=== PATIENT | male | born 1965 | race Caucasian/White ===

== ENCOUNTER → 2019-06-07 09:36 | Outpatient (BNVA) | payer BC, SELFPAY | PROVIDERS: Family Provider Nurse Practitioner Family; PCP Nurse Practitioner Family; Visit Provider Podiatrist Foot & Ankle Surgery | DX: B35.1 Tinea unguium (principal) | CPT/HCPCS: 84450; 84460 ==

== ENCOUNTER → 2020-12-12 15:41 | Outpatient (BNVA) | payer BC, SELFPAY | PROVIDERS: Family Provider Nurse Practitioner Family; PCP Family Medicine; Visit Provider Podiatrist Foot & Ankle Surgery | DX: M25.572 Pain in left ankle and joints of left foot (principal) | CPT/HCPCS: 73630 ==

== ENCOUNTER → 2021-01-02 15:27 | Outpatient (BNVA) | payer BC, SELFPAY | PROVIDERS: Family Provider Nurse Practitioner Family; PCP Family Medicine; Visit Provider Podiatrist Foot & Ankle Surgery | DX: M25.572 Pain in left ankle and joints of left foot (principal) | CPT/HCPCS: 73630 ==

== ENCOUNTER 2021-01-02 16:08 | Outpatient (CLI) | payer BC, SELFPAY | END 2021-01-02 16:09 | disposition home or self-care (01) | LOC: SPT 16:09 | PROVIDERS: Family Provider Nurse Practitioner Family; PCP Family Medicine; Visit Provider Podiatrist Foot & Ankle Surgery | DX: Z46.89 Encounter for fitting and adjustment of other specified devices (principal); M76.62 Achilles tendinitis, left leg | CPT/HCPCS: 97760; L4397 ==

== ENCOUNTER 2021-05-16 16:25 | Emergency (ER) | payer OTHER, BC, SELFPAY ==
[2021-05-16 16:37] VITALS: BP 152/93; PULSE 99; RESP 18; TEMP 36.2; O2SAT 98; BMI 36.2
--- NOTE | 2021-05-16 16:59 | CTR_ITS ---
PROCEDURE INFORMATION: Exam: CT Cervical Spine Without Contrast Exam date and time: 05/16/2021 4:59 PM Age: 55 years old Clinical indication: Injury or trauma; Other: Hit in back of head by falling tree; Blunt trauma TECHNIQUE: Imaging protocol: Computed tomography images of the cervical spine without contrast. Radiation optimization: All CT scans at this facility use at least one of these dose optimization techniques: automated exposure control; mA and/or kV adjustment per patient size (includes targeted exams where dose is matched to clinical indication); or iterative reconstruction. COMPARISON: CR Chest 1 [place] [id number] 05/04/2019 9:32 AM RADIATION DOSE METRICS: Total DLP (mGy-cm): 889.3 FINDINGS: Vertebrae: Grade 1 anterolisthesis of C4 relative to C5 of 3 mm is likely chronic and degenerative. C2-C3: No significant disc protrusion. No severe spinal canal stenosis. No significant neural foraminal narrowing. C3-C4: No significant disc protrusion. No severe spinal canal stenosis. No significant neural foraminal narrowing. C4-C5: No significant disc protrusion. No severe spinal canal stenosis. No significant neural foraminal narrowing. C5-C6: No significant disc protrusion. No severe spinal canal stenosis. No significant neural foraminal narrowing. C6-C7: C6-C7 broad-based disc bulge with productive degenerative endplate changes resulting in severe bilateral foraminal narrowing. C7-T1: No significant disc protrusion. No severe spinal canal stenosis. No significant neural foraminal narrowing. Soft tissues: Left thyroid 8.2 mm low-density nodule, nonemergent thyroid ultrasound advised for further evaluation. Lungs: Lung apices are normal. CT/CT cervical spin wo con* [id number] IMPRESSION: 1. Negative for fracture or dislocation. 2. Grade 1 anterolisthesis of C4 relative to C5 of 3 mm is likely chronic and degenerative. 3. C6-C7 broad-based disc bulge with productive degenerative endplate changes resulting in severe bilateral foraminal narrowing. 4. Left thyroid 8.2 mm low-density nodule, nonemergent thyroid ultrasound advised for further evaluation.
--- NOTE | 2021-05-16 17:21 | W.ED.TRAUMA ---
Documented by User: Marlon Kelly DO 05/17/21 07:47 HPI - Trauma General: Chief Complaint: Trauma Stated Complaint: FRACTURED 5TH CERVICAL VER[facility]BRA/[facility] Time Seen by Provider: 05/16/21 16:56 History of Present Illness: HPI narrative: 45-year-old male presents emergency room about 10 days ago he was cutting a tree in all branches line on his head he is a small abrasion on the left side of his forehead he had neck pain ever since that time. [facility] today they did a C-spine film.there was a C4 on 5 partial dislocation he was referred here for further evaluation. He denies any radicular arm pain but does have neck pain. MD complaint: fall Onset (ago): week(s) (2) Loss of Consciousness: no Location: neck Severity: mild Context: fall Associated symptoms: Denies Unable to assess gait, abdominal pain, anorexia, back pain, chest pain, chills, confusion, cough, dental pain, diaphoresis, difficulty breathing, dizziness, epistaxis, fever(s), headache(s), nausea, seizures, short of breath, syncope, visual disturbances, vomiting or weakness Review of Systems Const: Denies: fever(s), chills or diaphoresis ENMT: Denies: dental pain or epistaxis Card: Denies: chest pain or syncope Resp: Denies: dyspnea, productive cough or non-productive cough GI: Denies: abdominal pain, nausea or vomiting : Denies: flank pain, dysuria, urinary frequency or urinary urgency Musc: Denies: back pain Skin/Breast: Denies: rash or pruritus Neuro: Denies: headache(s), dizziness or confusion PFSH ED PFSH: Medical History 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 Bipolar disorder Charcot's joint of foot Depression Erectile dysfunction Hammer toe of left foot Hypertension Surgical History H/O lumpectomy Status post right foot surgery Family History Denies family history of Diabetes CAD (coronary artery disease) Clotting disorder Dementia Hyperlipidemia Psychiatric illness Chronic kidney disease (CKD) Suicide Anesthesia complication Bleeding disorder Family history of premature coronary artery disease Lung disease Cancer Hypertension Stroke Social History Smoking and tobacco status: never smoked Second hand smoke exposure: No Smoking risk assessment/counseling performed?: No Alcohol intake: never Desire information about alcohol rehabilitation?: No Counseling given: No Desire information about substance/drug rehabilitation?: No Counseling given: No Adopted: No Caregiver/support person: No Physical Exam Const: COMMON NORMALS: no acute distress GENERAL APPEARANCE: cooperative and comfortable ORIENTATION/CONSCIOUSNESS: Yes awake, Yes oriented to person, Yes oriented to place and Yes oriented to time HENMT: COMMON NORMALS: normocephalic, atraumatic and hearing grossly normal bilaterally HEAD & SCALP: normocephalic and atraumatic Neck/C-Spine: COMMON NORMALS: no JVD Resp: COMMON NORMALS: normal respiratory effort, No retractions, No use of accessory muscles and clear to auscultation bilaterally AUSCULTATION: clear to auscultation bilaterally Cardio: COMMON NORMALS: no JVD, regular rate, regular rhythm and No murmurs present (Cardio) RATE: regular rate RHYTHM: regular rhythm GI: COMMON NORMALS: Soft to palpation and No hepatosplenomegaly present AUSCULTATION: Yes normoactive bowel sounds PALPATION: Yes Soft to palpation, No Tenderness to palpation present (GI), No Guarding due to palpation present (GI) and Yes No hepatosplenomegaly present Extremity: COMMON NORMALS: normal to inspection, capillary refill normal, no clubbing, cyanosis or edema, no calf tenderness and no pedal edema Neuro: SENSORIUM/ORIENTATION: Yes oriented to person, Yes oriented to place and Yes oriented to time GAIT: No Unable to assess gait Skin: COMMON NORMALS: no rashes or lesions noted GENERAL SKIN EXAM: no rashes or lesions noted Course Vital Signs: Vital signs: Vital Signs Temperature 97.2 F L 05/16/21 16:37 Pulse Rate 99 05/16/21 16:37 Respiratory Rate 18 05/16/21 16:37 Blood Pressure 152/93 05/16/21 16:37 Pulse Oximetry 98 05/16/21 16:37 MDM - Trauma MDM Narrative: Medical decision making narrative: Care turned over to Dr. Kelley at change shift see his notes for final diagnosis and disposition. Discharge Plan Discharge Patient Disposition: Home Clinical Impression: Neck strain Qualifiers: Encounter type: initial encounter Qualified Code(s): S16.1XXA - Strain of muscle, fascia and tendon at neck level, initial encounter Condition: Stable Prescriptions: New methocarbamol 750 mg tablet 750 mg PO Q6H PRN (Reason: spasms) Qty: 20 RF: 0 Naprosyn 500 mg tablet 500 mg PO BID PRN (Reason: pain) Qty: 20 RF: 0 No Action baclofen 20 mg tablet 20 mg PO TID RF: 0 tadalafil [Cialis] 20 mg tablet 20 mg PO ONCE RF: 0 cyclobenzaprine 10 mg tablet 10 mg PO TID RF: 0 lithium carbonate 450 mg tablet extended release 450 mg PO BID RF: 0 diclofenac sodium [Voltaren] 1 % gel 2 gm TOPICAL QID Qty: 100 RF: 0 terbinafine HCl 250 mg tablet 250 mg PO ONCE 30 Days Qty: 30 RF: 2 mupirocin 2 % ointment 1 applic topical BID Qty: 22 RF: 3 amoxicillin-pot clavulanate [Augmentin] 875-125 mg tablet 1 tab PO BID 10 Days Qty: 20 RF: 0 (DME) Custom Foot Orthotics Bilaterally See Rx Instructions .Route .MEDSUPPLY Qty: 1 RF: 0 (DME) Night splint See Rx Instructions .ROUTE .MEDSUPPLY Qty: 1 RF: 0 doxycycline hyclate 100 mg capsule 100 mg PO BID 7 Days Qty: 14 RF: 0 sulfamethoxazole-trimethoprim [Bactrim DS] 800-160 mg tablet 1 tab PO BID 14 Days Qty: 28 RF: 0 fluoxetine 10 mg capsule 10 mg PO BID Qty: 60 RF: 0 lisinopril-hydrochlorothiazide 20-25 mg tablet 1 tab PO BID Qty: 120 RF: 0 Discharge Orders: Discharge ED (Routine); Ordered 05/16/21 Ordered By: Juwan Kelley Referrals: Aniket Maher DO [Physician] - 1-3 days Ana Bustos MD [Primary Care Provider] - Discharge Diet: Advance as tolerated Discharge Activity: Resume usual activity Patient Instructions: Neck Pain (ED) Coding Level of Care Code ED Environmental Field Team Member for Chg Fwd Exam Comprehensive Documented by User: Juwan Kelley MD 05/16/21 19:00 HPI - Trauma General: Chief Complaint: Trauma Stated Complaint: FRACTURED 5TH CERVICAL VERTEBRA[facility] Time Seen by Provider: 05/16/21 16:56 PFSH ED PFSH: Medical History 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 Bipolar disorder Charcot's joint of foot Depression Erectile dysfunction Hammer toe of left foot Hypertension Surgical History H/O lumpectomy Status post right foot surgery Family History Denies family history of Diabetes CAD (coronary artery disease) Clotting disorder Dementia Hyperlipidemia Psychiatric illness Chronic kidney disease (CKD) Suicide Anesthesia complication Bleeding disorder Family history of premature coronary artery disease Lung disease Cancer Hypertension Stroke Social History Smoking and tobacco status: never smoked Second hand smoke exposure: No Smoking risk assessment/counseling performed?: No Alcohol intake: never Desire information about alcohol rehabilitation?: No Counseling given: No Desire information about substance/drug rehabilitation?: No Counseling given: No Adopted: No Caregiver/support person: No Course Vital Signs: Vital signs: Vital Signs Temperature 97.2 F L 05/16/21 16:37 Pulse Rate 99 05/16/21 16:37 Respiratory Rate 18 05/16/21 16:37 Blood Pressure 152/93 05/16/21 16:37 Pulse Oximetry 98 05/16/21 16:37 MDM - Trauma MDM Narrative: Medical decision making narrative: Patient presents here with a neck sprain from a tree fall on him 10 days ago concerned of a possible fracture CT here shows no fracture or dislocation patient stable for discharge did speak to spine surgeon Dr. Madsen will get patient follow-up with him. He is return if worsening he has no radicular symptoms. Imaging Data^: Other CT: Attestation: I personally reviewed and interpreted this imaging study as follows: Radiologist's impression: [id number] [address] [address] Scan Report Signed Patient: Fidel Moura Unit #: [id number] : [id number] Age/Sex: 55 / M ADM Date: 05/16/21 Loc: ER Room/Bed: Attending Dr: Ordering Provider/Ordering MD: Marlon Kelly DO Date of Service: 05/16/21 Procedure(s): CT cervical spin wo con* [id number] Accession Number(s): [id number] Report Number: [id number] PROCEDURE INFORMATION: Exam: CT Cervical Spine Without Contrast Exam date and time: 05/16/2021 4:59 PM Age: 55 years old Clinical indication: Injury or trauma; Other: Hit in back of head by falling tree; Blunt trauma TECHNIQUE: Imaging protocol: Computed tomography images of the cervical spine without contrast. Radiation optimization: All CT scans at this facility use at least one of these dose optimization techniques: automated exposure control; mA and/or kV adjustment per patient size (includes targeted exams where dose is matched to clinical indication); or iterative reconstruction. COMPARISON: CR Chest 1 [place] [id number] 05/04/2019 9:32 AM RADIATION DOSE METRICS: Total DLP (mGy-cm): 889.3 FINDINGS: Vertebrae: Grade 1 anterolisthesis of C4 relative to C5 of 3 mm is likely chronic and degenerative. C2-C3: No significant disc protrusion. No severe spinal canal stenosis. No significant neural foraminal narrowing. C3-C4: No significant disc protrusion. No severe spinal canal stenosis. No significant neural foraminal narrowing. C4-C5: No significant disc protrusion. No severe spinal canal stenosis. No significant neural foraminal narrowing. C5-C6: No significant disc protrusion. No severe spinal canal stenosis. No significant neural foraminal narrowing. C6-C7: C6-C7 broad-based disc bulge with productive degenerative endplate changes resulting in severe bilateral foraminal narrowing. C7-T1: No significant disc protrusion. No severe spinal canal stenosis. No significant neural foraminal narrowing. Soft tissues: Left thyroid 8.2 mm low-density nodule, nonemergent thyroid ultrasound advised for further evaluation. Lungs: Lung apices are normal. CT/CT cervical spin wo con* [id number] IMPRESSION: 1. Negative for fracture or dislocation. 2. Grade 1 anterolisthesis of C4 relative to C5 of 3 mm is likely chronic and degenerative. 3. C6-C7 broad-based disc bulge with productive degenerative endplate changes resulting in severe bilateral foraminal narrowing. 4. Left thyroid 8.2 mm low-density nodule, nonemergent thyroid ultrasound advised for further evaluation. Dictated By: Brodie Willson MD Signed By: Brodie Willson MD Signed Date/Time: 05/16/211812 DD/ 58 Discharge Plan Discharge Patient Disposition: Home Clinical Impression: Neck strain Qualifiers: Encounter type: initial encounter Qualified Code(s): S16.1XXA - Strain of muscle, fascia and tendon at neck level, initial encounter Condition: Stable Prescriptions: New methocarbamol 750 mg tablet 750 mg PO Q6H PRN (Reason: spasms) Qty: 20 RF: 0 Naprosyn 500 mg tablet 500 mg PO BID PRN (Reason: pain) Qty: 20 RF: 0 No Action baclofen 20 mg tablet 20 mg PO TID RF: 0 tadalafil [Cialis] 20 mg tablet 20 mg PO ONCE RF: 0 cyclobenzaprine 10 mg tablet 10 mg PO TID RF: 0 lithium carbonate 450 mg tablet extended release 450 mg PO BID RF: 0 diclofenac sodium [Voltaren] 1 % gel 2 gm TOPICAL QID Qty: 100 RF: 0 terbinafine HCl 250 mg tablet 250 mg PO ONCE 30 Days Qty: 30 RF: 2 mupirocin 2 % ointment 1 applic topical BID Qty: 22 RF: 3 amoxicillin-pot clavulanate [Augmentin] 875-125 mg tablet 1 tab PO BID 10 Days Qty: 20 RF: 0 (DME) Custom Foot Orthotics Bilaterally See Rx Instructions .Route .MEDSUPPLY Qty: 1 RF: 0 (DME) Night splint See Rx Instructions .ROUTE .MEDSUPPLY Qty: 1 RF: 0 doxycycline hyclate 100 mg capsule 100 mg PO BID 7 Days Qty: 14 RF: 0 sulfamethoxazole-trimethoprim [Bactrim DS] 800-160 mg tablet 1 tab PO BID 14 Days Qty: 28 RF: 0 fluoxetine 10 mg capsule 10 mg PO BID Qty: 60 RF: 0 lisinopril-hydrochlorothiazide 20-25 mg tablet 1 tab PO BID Qty: 120 RF: 0 Discharge Orders: Discharge ED (Routine); Ordered 05/16/21 Ordered By: Juwan Kelley Referrals: Aniket Maher DO [Physician] - 1-3 days Ana Bustos MD [Primary Care Provider] - Discharge Diet: Advance as tolerated Discharge Activity: Resume usual activity Patient Instructions: Neck Pain (ED) Coding Level of Care Code ED Environmental Field Team Member for Chg Fwd Exam Comprehensive
--- NOTE | 2021-05-17 09:26 | DCPLANNER ---
environmental sustainability manager had message to schedule a follow up appointment for patient with ortho. environmental sustainability manager called the ortho clinic, spoke with Mariah, gave clinic patients information. environmental sustainability manager was told that patients information would be printed and reviewed. Clinic will call patient with appointment information. Patient has [facility] insurance, family service caseworker will email patients information to August, with [facility], so that the authorization process can be started.
--- NOTE | 2021-05-25 08:11 | DCPLANNER ---
Addendum entered by Ashley Tobias 07/06/21 11:47: Patient had a follow up appointment scheduled for 06.07.21 with ortho - patient did attend appointment. Original Note: Patient has a follow up appointment scheduled for June at 10:[address] Maher at ortho. Clinic will call patient with appointment information.
== END 2021-05-16 19:10 | disposition home or self-care (01) ==
PROVIDERS: Emergency Provider Emergency Medicine; PCP Family Medicine
DX: S16.1XXA Strain of muscle, fascia and tendon at neck level, initial encounter (principal); I10 Essential (primary) hypertension; S00.81XA Abrasion of other part of head, initial encounter; W20.8XXA Other cause of strike by thrown, projected or falling object, initial encounter
CPT/HCPCS: 72125; 99283

== ENCOUNTER → 2021-06-07 10:27 | Outpatient (BNVA) | payer OTHER, BC, SELFPAY | PROVIDERS: PCP Family Medicine; Visit Provider Orthopaedic Surgery | DX: S13.150A Subluxation of C4/C5 cervical vertebrae, initial encounter (principal); X58.XXXA Exposure to other specified factors, initial encounter; M47.892 Other spondylosis, cervical region | CPT/HCPCS: 72040 ==

== ENCOUNTER 2021-06-26 06:46 | Outpatient (CLI) | payer OTHER, SELFPAY ==
--- NOTE | 2021-06-26 06:30 | MR_ITS ---
WS: [id number] MRI CERVICAL SPINE NONCONTRAST TECHNIQUE: Sagittal T1, T2 and STIR imaging. Axial T2, gradient, and fiesta imaging. CLINICAL INFORMATION: S12.9XXA - Fracture of neck, unspecified, initial encounter COMPARISON: CT cervical May 16, 2021 FINDINGS: Straightening of the normal cervical lordosis. Moderate spondylitic changes. Slight anterolisthesis C 4 on C5. Mild to moderate central canal stenosis C2-C5. C2-C3: Disc osteophyte complex with endplate ridging. Mild bilateral bony foraminal narrowing. Mild c entral canal stenosis. C3-C4: Disc osteophyte complex with endplate ridging. Mild facet arthropathy. Moderate central canal stenosis and slight indentation on the cervical cord. Moderate to severe left and mild right bony for aminal narrowing. C4-C5: Grade 1 anterolisthesis C4 on C5. Disc osteophyte complex with endplate ridging. Moderate cent ral canal stenosis. Moderate to severe left and mild right bony foraminal narrowing. Right facet syno vitis with right facet edema. C5-C6: Disc osteophyte complex with endplate ridging. Severe left and no significant right foraminal narrowing. Mild central canal stenosis. Moderate facet arthropathy. C6-C7: Disc osteophyte complex with endplate ridging. Mild central canal stenosis. Moderate bilateral bony foraminal narrowing. C7-T1: Disc osteophyte complex with endplate ridging. Mild to moderate left and no significant right foraminal narrowing. Mild to moderate facet arthropathy. Visualized brain stem structures: Normal. Prevertebral soft tissues: Normal. MR/MR cervical spin wo con* [id number] IMPRESSION: 1. Straightening of the normal cervical lordosis. Mild to moderate central can al stenosis C2-C5. 2. Central canal stenosis due to disc osteophyte complexes worse at C3-C4 and C4-C5. Moderate central canal stenosis C3-C4 and C4-5. 3. Multilevel moderate to severe bony foraminal narrowing worse at left C3-C4, left C4-C5, left C5-C6 and moderate bilateral C6-C7. 4. Asymmetric right facet arthropathy C4-5 with right facet effusion consisten t with synovitis.
== END 2021-06-26 06:47 | disposition home or self-care (01) ==
LOC: RAD 06:48
PROVIDERS: PCP Family Medicine; Visit Provider Orthopaedic Surgery
DX: S12.9XXA Fracture of neck, unspecified, initial encounter (principal); X58.XXXA Exposure to other specified factors, initial encounter; M48.02 Spinal stenosis, cervical region; M25.78 Osteophyte, vertebrae; M47.812 Spondylosis without myelopathy or radiculopathy, cervical region
CPT/HCPCS: 72141

== ENCOUNTER 2021-07-27 11:12 | Outpatient (CLI) | payer OTHER, SELFPAY ==
--- NOTE | 2021-07-27 11:19 | US_ITS ---
WS: [id number] THYROID ULTRASOUND HISTORY: NODULE ON THYROID COMPARISON: None available. Right lobe: 2.9 cm x 2.8 cm x 5.3 cm (w x ap x l). Volume: 22.2 cm3. Mildly enlarged gland. There are several small hypoechoic nodules scattered throughout the gland. The se are all less than a centimeter. The largest nodule is in the mid anterior gland measuring 6 x 6 x 5 mm. No increased vascularity. The remaining nodules are very small and some are cystic. Left lobe: 2.7 cm x 2.3 cm x 5.6 cm (w x ap x l). Volume: 18.5 cm3. Normal size and echotexture. No significant or dominant nodules are present. Isthmus: 0.3 cm. US/US thyroid [id number] IMPRESSION: 1. Several small subcentimeter nodules in the RIGHT thyroid. No concerning fea tures at this time for which biopsy should be recommended. Recommend annual ult rasound thyroid evaluation for increasing size or concerning features. 2. Mild thyromegaly.
== END 2021-07-27 11:13 | disposition home or self-care (01) ==
LOC: RAD 11:14
PROVIDERS: PCP Family Medicine; Visit Provider Nurse Practitioner
DX: E04.1 Nontoxic single thyroid nodule (principal)
CPT/HCPCS: 76536

== ENCOUNTER 2021-08-17 08:16 | Outpatient (CLI) | payer OTHER, SELFPAY ==
--- NOTE | 2021-08-17 08:00 | MR_ITS ---
WS: [id number] MRI LEFT KNEE NONCONTRAST TECHNIQUE: Axial PD, coronal PD fat sat, coronal PD, sagittal PD, and sagittal PD fat-sat images obta ined. CLINICAL INFORMATION: M25.462 - Effusion, left knee COMPARISON: None. FINDINGS: Distal quadriceps and patella tendons are intact. Prepatellar soft tissue edema. Hypertrophic patella . Normal ACL and PCL. Moderate suprapatellar effusion. Chronic thinning of the medial and lateral men iscus. Lateral meniscus is intact. Moderate degenerative narrowing medial joint compartment. Complex tear involving the posterior horn medial meniscus extending to the articular surface. Blunting of the posterior horn medial meniscus. Mild peripheral extrusion of the medial meniscus. Bucket-handle type tear with displaced meniscal fragment along the intercondylar notch. Advanced chondromalacia patella. Mild subchondral edema. Normal medial and lateral patellar retinacul um. Tiny popliteal cyst measuring 0.7x3.2 cm AP by craniocaudal. Small amount of fluid and edema deep to the MCL compatible with grade 1-2 injury. Normal lateral collateral ligament. MR/MR knee LT wo con* [id number] IMPRESSION: 1. Moderate suprapatellar effusion. 2. ACL and PCL are intact. 3. Complex tear posterior horn medial meniscus with blunting of the posterior horn. Small displaced fragment along the intercondylar notch compatible with bu cket-handle type tear. Mild peripheral extrusion of the medial meniscus. 4. Grade 1-2 injury of the MCL. 5. Advanced chondromalacia patella with subchondral edema. 6. Small amount of subchondral edema in the medial femoral condyle and tibial plateau. 7. Small popliteal cyst Outbridge grading: grade III: partial-thickness cartilage loss with focal ulcer ation
== END 2021-08-17 08:17 | disposition home or self-care (01) ==
PROVIDERS: PCP Family Medicine; Visit Provider Orthopaedic Surgery
DX: M25.462 Effusion, left knee (principal); S83.232A Complex tear of medial meniscus, current injury, left knee, initial encounter; M22.42 Chondromalacia patellae, left knee; R60.0 Localized edema; M71.22 Synovial cyst of popliteal space [Baker], left knee; X58.XXXA Exposure to other specified factors, initial encounter
CPT/HCPCS: 73721

== ENCOUNTER → 2021-10-23 13:35 | Outpatient (BNVA) | payer OTHER, SELFPAY | PROVIDERS: PCP Family Medicine; Visit Provider Physician Assistant | DX: M47.12 Other spondylosis with myelopathy, cervical region (principal) | CPT/HCPCS: 99213 ==

== ENCOUNTER 2021-10-23 14:54 | Outpatient (CLI) | payer OTHER, SELFPAY | END 2021-10-23 14:55 | disposition home or self-care (01) | LOC: SPT 14:55 | PROVIDERS: PCP Family Medicine; Visit Provider Physician Assistant | DX: Z46.89 Encounter for fitting and adjustment of other specified devices (principal); M47.12 Other spondylosis with myelopathy, cervical region | CPT/HCPCS: 97760; 99214; L0174 ==

== ENCOUNTER 2022-01-02 13:26 | Inpatient (IN) | payer OTHER, SELFPAY ==
[2021-12-28 08:44] VITALS: BMI 34.9
[2021-12-28 09:25] LABS: Anion Gap 11.2 (5-19); Blood Urea Nitrogen 14 mg/dL (6-20); Calcium 9.2 mg/dL (8.5-10.5); Carbon Dioxide 25 mmol/L (22-29); Chloride 108 mmol/L (98-107); Creatinine Clr Calc Pharmacy 151.5487; Glomerular Filtration Rate 100.7 mL/min (90-130); Glucose 111 mg/dL (65-115); Osmolality Calculated 291 mOsm/kg (285-295); Potassium 4.2 mmol/L (3.5-5.1); Sodium 140 mmol/L (136-145)
--- NOTE | 2021-12-28 13:43 | ANES.PREANE2 ---
Pre-Anesthetic Assessment Height/Weight: Height 1.91 m Weight 127.006 kg Preop Diagnosis: Cervical spondylosis w/ myelopathy Operation Date: 01/02/22 07:00 Proposed Procedures p Anterior Cervical Discectomy & Fusion C4-5 C5-6 [id number](Not Applicable) - Aniket Maher DO s Cervical Posterior Fusion C2-T2 [id number]/M47.12(Not Applicable) - Aniket Maher DO s Cervical Decompression(Not Applicable) - Aniket Maher DO Familial anesthetic complications: none Was Beta Faustina taken within 24 hours: N/A Was Clonidine taken within 24 hours: N/A Social No alcohol and No tobacco Exam alert, oriented x 3, clear to auscultation bilaterally and regular rate & rhythm Airway Submandibular: within normal limits Cervical ROM: Other (Limited extension ) Mallampati: Class II Dentition: chipped Comments: Comments: Missing teeth Pulmonary Sleep Apnea (Untreated ) CV/HEM Hypertension None reported Hepatic None reported GI None reported Metabolic Diabetes Mellitus [facility] [place] [facility] None reported Charcot's joint Neuropsych Bipolar and Neuropathy (Peripheral neuropathy ) Dizziness and nausea with neck extension Anesthetic Plan ASA status: 2 Anesthesia: Anesthesia Evaluation and General Other: We discussed risk and benefits of general anesthesia including PONV, sore throat (sometimes severe), corneal abrasion, positioning and peripheral nerve injuries, life threatening allergic reaction, post operative ICU admission requiring prolonged intubation, aspiration, stroke, heart attack, , and rare incidences of recall. Patient consents to proceed with general anesthesia. Plan GETA, 2 PIV, possible arterial line Risk of > 500 ml blood loss (7ml/kg in children): No Medications/Allergies Home Medications Medication Instructions Recorded Confirmed Last Taken Type baclofen 20 mg tablet 20 mg PO TID 06/09/19 12/28/21 Unknown History cyclobenzaprine 10 mg tablet 10 mg PO TID 06/09/19 12/28/21 Unknown History diclofenac sodium 1 % topical gel 2 gm topical QID #100 grams 06/09/19 12/28/21 Unknown Rx (Voltaren) lithium carbonate 450 mg 450 mg PO BID 06/09/19 12/28/21 Unknown History tablet,extended release fluoxetine 10 mg capsule 10 mg PO BID #60 caps 09/13/19 12/28/21 Unknown Rx lisinopril 20 1 tab PO BID #120 tabs 09/13/19 12/28/21 Unknown Rx mg-hydrochlorothiazide 25 mg tablet Custom Foot Orthotics Bilaterally #1 ea 12/12/20 10/23/21 Unknown Rx Night splint #1 ea 01/02/21 10/23/21 Unknown Rx naproxen 500 mg tablet (Naprosyn) 500 mg PO BID PRN pain #20 tabs 05/16/21 12/28/21 Unknown Rx [place] J collar #1 ea 10/23/21 10/23/21 Unknown Rx Allergies Allergy/AdvReac Type Severity Reaction Status Date / Time No Known Allergies Allergy Verified 10/23/21 13:42 [facility] Anesthesia Medical History 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 Bipolar disorder Charcot's joint of foot Depression Erectile dysfunction Hammer toe of left foot Hypertension Surgical History H/O lumpectomy Status post right foot surgery Family History Denies family history of Diabetes CAD (coronary artery disease) Clotting disorder Dementia Hyperlipidemia Psychiatric illness Chronic kidney disease (CKD) Suicide Anesthesia complication Bleeding disorder Family history of premature coronary artery disease Lung disease Cancer Hypertension Stroke Social History Smoking and tobacco status: former smoker (40+ years ) Second hand smoke exposure: No Smoking risk assessment/counseling performed?: No Alcohol intake: never Desire information about alcohol rehabilitation?: No Counseling given: No Desire information about substance/drug rehabilitation?: No Counseling given: No Adopted: No Caregiver/support person: No Data Anesthesia : 12/28/21 08:57 BMP 12/28/21 08:57 Sodium 140 Potassium 4.2 Chloride 108 H Carbon Dioxide 25 BUN 14 Creatinine 0.8 Glucose 111 Calcium 9.2 Cardiac Studies: No Data to Display
[2022-01-02] VITALS (95 sets, daily range): BP systolic 121–188; BP diastolic 78–142; PULSE 70–121; RESP 12–34; TEMP 36.2–37; O2SAT 93–100; BMI 34.9
--- NOTE | 2022-01-02 | SCC_ITS ---
Procedure done: 1. Anterior diskectomy C4/5 2. Anterior discectomy C5/6 3. Insertion of cage C4/5 4. Insertion of Cage C5/6 5. Instrumentation with anterior plate from C4-6 6. Use of allograft 7. C2-T2 posterior spine fusion 8. C2-T2 poserior spine instrumentation 9. C2/3 laminectomy with partial facetectomies 10. C3/4 laminectomy with partial facetectomies 11. C4/5 laminectomy with partial facetectomies 12. C5/6 laminectomy with partial facetectomies 13. use of autograft from same incision 69.2 seconds of fluoroscopic guidance, for a cumulative dose of 18.62 mGy, was provided to Dr. Maher by the radiology department. C-arm images of the cervical spine were saved for the patient's permanent record. [facility]
--- NOTE | 2022-01-02 | XR_ITS ---
WS: [id number] Cervical spine, C-arm fluoroscopy views, 01/02/2022 Clinical Data: acdf, posterior fusion Comparison: None. Findings: Dr. Maher performed an anterior cervical disc fusion C4-C6 with disc cages at C4-C5 and C5- C6. Any performed a posterior cervical thoracic fusion from C2 to T2 with pedicle screws and connecti ng rods. XR/XR cervical spine 3V* [id number] Impression: Anterior and posterior cervical fusion.
--- NOTE | 2022-01-02 06:19 | P.ANESUD_ITS ---
Pre-Anesthetic Update Pre-Anesthetic Assessment: Date of Surgery/Procedure: 01/02/22 Preop Emily gnosis: Cervical spondylosis with myelopathy, anterior listhesis C4-5 Proposed Procedure: Operation Date: 01/02/22 07:00 Proposed Procedures p Anterior Cervical Discectomy & Fusion C4-5 C5-6 [id number](Not Applicable) - Aniket Maher, DO s Cervical Posterior Fusion C2-T2 [id number]/M47.12(Not Applicable) - Aniket Maher, DO s Cervical Decompression(Not Applicable) - Aniket Maher, DO Any changes to Pre-Anesthetic Assessment?: No Last Intake: 01/01/22 Exam: Pre-Anes Outpt Exam: alert, oriented x 3, clear to auscultation bilaterally and regular rate & rhythm Cardiac Studies: No Data to Display
[2022-01-02] MEDS: sodium chloride 0.9% 1,000 ML 30 ML IV (06:50)
[2022-01-02 06:55] LABS: Basophils # 0.1 10^3/uL (0.0-0.1); Eosinophils # 0.3 10^3/uL (0.0-0.8); Eosinophils % 3.2 %; Hematocrit 37.9 % (42.0-52.0); Hemoglobin 12.3 g/dL (11.7-16.6); Lymphocytes % 24.4 %; Mean Corpuscular HGB Conc 32.5 g/dL (30.0-36.0); Mean Corpuscular Hemoglobin 29.5 pg (28.0-34.0); Mean Corpuscular Volume 90.9 fl (80-94); Mean Platelet Volume 10.4 fL (7.4-10.4); Monocytes # 0.6 10^3/uL (0.2-0.9); Monocytes % 7.8 %; Neutrophils # 5.11 10^3/uL (1.8-7.7); Neutrophils % 63.2 %; Nucleated Red Blood Cells % 0 %; Platelet Count 228 10^3/cmm (130-400); Red Blood Count 4.17 10^6/uL (4.1-5.3); Red Cell Distribution Width 13.2 % (12.1-15.1); White Blood Count 8.1 10^3/uL (4.0-10.0)
--- NOTE | 2022-01-02 06:57 | P.HP_ITS ---
Providers/Chief Complaint Primary Care Provider: Lorrie Gtz Chief Complaint: C4-5C5-6 ACDF W/ C2-T2 FUSION W DECOM History of Present Illness Fidel Moura is a 56 year old male Patient also has spondylolisthesis at C4- 5.? At this point did discuss with him doing surgery which include a C4-5, C5-6 ACDF and C2-T2 posterior spine fusion with decompression.? However patient is caring for his girlfriend who has cancer and has chemotherapy treatments and is quadriplegic and has to help lift her and move her he wants to wait until [place] when she is under chemotherapy before he proceed with any surgery.? Patient had been sent for injections which he did not do.? Patient is wanting to talk about surgery and schedule possibly for December.? Dates his symptoms have progressively intensified he is dropping things more frequently.? Feels more clumsy when he is walking.? He has had difficult time writing legibly.? Reports neck pain as well as arm pain. Review of Systems Const: Denies: fever(s) or chills Card: Denies: chest pain or dyspnea on exertion Resp: Denies: dyspnea or productive cough GI: Denies: abdominal pain, nausea or vomiting Musc: Reports: neck pain and limited range of motion; Denies: joint pain or joint swelling Skin/Breast: Denies: changes in skin color or dry skin Neuro: Reports: numbness in extremities, lack of coordination and frequent falls; Denies: weakness in extremities Psych: Denies: anxiety Dandy/Lymph: Denies: easy bruising or easy bleeding Medications/Allergies Home Medications Medication Instructions Recorded Confirmed Last Taken Type baclofen 20 mg tablet 20 mg PO TID 06/09/19 12/28/21 Unknown History cyclobenzaprine 10 mg tablet 10 mg PO TID 06/09/19 12/28/21 Unknown History diclofenac sodium 1 % topical gel 2 gm topical QID #100 grams 06/09/19 12/28/21 Unknown Rx (Voltaren) lithium carbonate 450 mg 450 mg PO BID 06/09/19 01/02/22 01/01/22 History tablet,extended release fluoxetine 10 mg capsule 10 mg PO BID #60 caps 09/13/19 01/02/22 01/01/22 Rx lisinopril 20 1 tab PO BID #120 tabs 09/13/19 01/02/22 01/01/22 Rx mg-hydrochlorothiazide 25 mg tablet [employer]otics Bilaterally #1 ea 12/12/20 10/23/21 Unknown Rx Night splint #1 ea 01/02/21 10/23/21 Unknown Rx naproxen 500 mg tablet (Naprosyn) 500 mg PO BID PRN pain #20 tabs 05/16/21 12/28/21 Unknown Rx [place] J collar #1 ea 10/23/21 10/23/21 Unknown Rx Allergies Allergy/AdvReac Type Severity Reaction Status Date / Time No Known Allergies Allergy Verified 10/23/21 13:42 PFSH Acute PFSH: Medical History 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 Bipolar disorder Charcot's joint of foot Depression Erectile dysfunction Hammer toe of left foot Hypertension Surgical History H/O lumpectomy Status post right foot surgery Family History Denies family history of Diabetes CAD (coronary artery disease) Clotting disorder Dementia Hyperlipidemia Psychiatric illness Chronic kidney disease (CKD) Suicide Anesthesia complication Bleeding disorder Family history of premature coronary artery disease Lung disease Cancer Hypertension Stroke Social History Smoking and tobacco status: former smoker (40+ years ) Second hand smoke exposure: No Smoking risk assessment/counseling performed?: No Alcohol intake: never Desire information about alcohol rehabilitation?: No Counseling given: No Desire information about substance/drug rehabilitation?: No Counseling given: No Adopted: No Caregiver/support person: No Vitals/I&O/Wt Last Vital Signs Temp 98.0 F 01/02/22 06:12 Pulse 70 01/02/22 06:12 Resp 18 01/02/22 06:12 BP 151/105 01/02/22 06:12 Pulse Ox 96 01/02/22 06:12 O2 Del Method 01/02/22 06:12 Physical Exam Narrative: CONSTITUTIONAL: The patient is a normal appearing [] in no apparent distress. GENERAL: Patient in no acute distress. CARDIAC: Regular rate and rhythm. CHEST: Normal inspiratory effort, normal respiratory rate. ABDOMEN: Soft and nontender. SKIN: Clear, warm and intact. NEURO?PSYCH: The patient is alert and oriented to person, place and time. Sensorv /SILT Motor StrengthShoulder abduction C5 5/5Wrist extension C6 5/5E lbow extension C7 5/5Hand Employee Communications Manager C8 5/5Finger abduction T15/5 Radial/ Ulnar/ Median n intact LowerSensory (SILT)Motor StrengthHin flexion L2/3Ant/inner thigh 5/5Hip adduction L2/3 5/5Knee extension L4 Lat thigh, 5/5Toe dorsiflexion L5 5/5Ankle dorsiflexion L5/ H38[place] flexion S1 5/5 DTRBleeps 2+Triceps 2+Brachioradialis 2+Patellar 2+Achilles 2+ MUSCULOSKELETAL: [] UPPEREXTREMITIES: The patient had full active ROM in fingers, wrist, elbow, and shoulder. The patient demonstrated ability to fully flex/extend/abduct/adduct fingers, make ok sign, cross 2nd/3rd digits, extend 1st digit fully.. Radial pulse 2+, CR<2 seconds. LOWER EXTREMITIES: Pt has full, active ROM of toes, ankle, knee, and hip. Dorsalis pedis/posterior tibialis pulses 2+, CR<2 seconds. SPINE: Skin warm, dry, intact. 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
[2022-01-02] MEDS: ceFAZolin 2,000 MG in sodium chloride 0.9% (plus) 50 ML 100 MG IV ×3 (07:00→22:53)
[2022-01-02 07:49] LABS: Anion Gap 15.2 (5-19); Blood Urea Nitrogen 14 mg/dL (6-20); Calcium 9.2 mg/dL (8.5-10.5); Carbon Dioxide 25 mmol/L (22-29); Chloride 107 mmol/L (98-107); Glomerular Filtration Rate 87.9 mL/min (90-130); Glucose 117 mg/dL (65-115); Osmolality Calculated 298 mOsm/kg (285-295); Potassium 4.2 mmol/L (3.5-5.1); Sodium 143 mmol/L (136-145)
--- NOTE | 2022-01-02 09:50 | PC.NURSE ---
CALLED TO UPDATE FAMILY ABOUT PROCEDURE PROGRESS AND HOW THE PATIENT WAS TOLERATING THE PROCEDURE. STATED PT VSS.
[2022-01-02] MEDS: ceFAZolin 2,000 mg SDV 2000 MG IVP (11:22)
[2022-01-02] MEDS: vancomycin 1,000 MG SDV 1000 MG XX (11:22)
[2022-01-02 12:33] LABS: Glucose Point of Care 118 mg/dL (70-110)
--- NOTE | 2022-01-02 13:27 | PM.OP ---
Operative Report Date of procedure: January 02, 2022 Pre-op diagnosis: Preop Diagnosis Cervical spondylosis with myelopathy, anterior listhesis C4-5 Post-op diagnosis: same Procedure done: 1. Anterior diskectomy C4/5 2. Anterior discectomy C5/6 3. Insertion of cage C4/5 4. Insertion of Cage C5/6 5. Instrumentation with anterior plate from C4-6 6. Use of allograft 7. C2-T2 posterior spine fusion 8. C2-T2 poserior spine instrumentation 9. C2/3 laminectomy with partial facetectomies 10. C3/4 laminectomy with partial facetectomies 11. C4/5 laminectomy with partial facetectomies 12. C5/6 laminectomy with partial facetectomies 13. use of autograft from same incision Procedure: 1. Anterior diskectomy C4/5 2. Anterior discectomy C5/6 3. Insertion of cage C4/5 4. Insertion of Cage C5/6 5. Instrumentation with anterior plate from C4-6 6. Use of allograft 7. C2-T2 posterior spine fusion 8. C2-T2 poserior spine instrumentation 9. C2/3 laminectomy with partial facetectomies 10. C3/4 laminectomy with partial facetectomies 11. C4/5 laminectomy with partial facetectomies 12. C5/6 laminectomy with partial facetectomies 13. use of autograft from same incision This is a 2 phase procedure Phase 1 The patient was taken to the operating room, where he underwent general endotracheal anesthesia without complications. He was then positioned supine on the operating table, and all areas of impingement were well padded. The arms were carefully padded and tucked at his sides. A roll was placed between the shoulder blades.. An x-ray was done to determine the appropriate level for the skin incision. The entire neck was then sterilely prepped and draped in the usual fashion. Neuromonitoring was attached prior to prepping. A transverse skin incision was made and carried down to the platysma muscle. This was then split in line with its fibers. Blunt dissection was carried down medial to the carotid sheath and lateral to the trachea and esophagus until the anterior cervical spine was visualized. A needle was placed into a disc and an x-ray was done to determine its location. The longus colli muscles were then elevated bilaterally with the electrocautery unit. Self-retaining retractors were placed deep to the longus colli muscle. Attention was brought to the C4/5 level that was confirmed on x-ray. A caspar pin was placed into the C4 vertebrae and the C5 vertebrae. The disk space was then distracted. The microscope was then brought in. A radical anterior discectomies were performed at C4/5. This included complete removal of the anterior annulus, nucleus, and posterior annulus. The posterior longitudinal ligament was removed as were the posterior osteophytes. Foraminotomies were then accomplished bilaterally. This was done using a high speed angel, kerrison rongeurs and curretes Once all of this was accomplished, the curved currette was used to check for any residual compression. The central canal was wide open as were the foramen. A high-speed bur was used to remove the cartilaginous endplates above and below the interspace. Bleeding cancellous bone was exposed. The disc space were measured and appropriate size cage were placed sterilely onto the field. Allograft graft was packed into the cages. The cage was then placed and there was good juxtaposition against the bleeding decorticated surfaces and good distraction of each interspace. Attention was brought to the next interspace. The [place] pins were removed. Bone wax was used to prevent any bleeding from occurring at the pin sites. Attention was brought to the C5/6 level that was confirmed on x-ray. A caspar pin was placed into the C5 vertebrae and the C6 vertebrae. The disk space was then distracted. The microscope was then brought in. A radical anterior discectomies were performed at C5/6. This included complete removal of the anterior annulus, nucleus, and posterior annulus. The posterior longitudinal ligament was removed as were the posterior osteophytes. Foraminotomies were then accomplished bilaterally. This was done using a high speed angel, kerrison rongeurs and curretes Once all of this was accomplished, the curved currette was used to check for any residual compression. The central canal was wide open as were the foramen. A high-speed bur was used to remove the cartilaginous endplates above and below the interspace. Bleeding cancellous bone was exposed. The disc space were measured and appropriate size cage were placed sterilely onto the field. Allograft graft was packed into the cages. The cage was then placed and there was good juxtaposition against the bleeding decorticated surfaces and good distraction of each interspace. Attention was brought to the next interspace. The [place] pins were removed. Bone wax was used to prevent any bleeding from occurring at the pin sites. The appropriate size anterior cervical locking plate was chosen and bent into gentle lordosis. Two screws were then placed into each of the vertebral bodies at C4, C5 and C6. There was excellent purchase. A final x-ray was done confirming good position of the hardware and Cages. The locking screws were then applied, also with excellent purchase. Following a final copious irrigation, there was good hemostasis and no dural leaks. The carotid pulse was strong. The wounds were then closed in layers using 2-0 Vicryl suture for the platysma muscle, 2-0 Vicryl suture for the subcutaneous tissue, and 4-0 monocryl suture in a subcuticular skin closure. Glue was placed followed by application of a sterile dressing. Patient was then flipped into the prone position. Phase 2: Patient was then flipped prone on the Randy table.? Attention was brought to the posterior cervical spine.? The posterior cervical spine was prepped and draped in normal sterile fashion.? All areas impingement were well-padded.? A skin incision was made from C2 down to T2.? Subperiosteal dissection was made from the lamina out to the lateral masses of C2 down to T2.? Retractors were placed.? Next attention was brought to placing the pars screws into C2.? This was done using a high-speed bur followed by the pedicle probe followed by placing the screw.? This was done bilaterally.? Next attention was brought to the C3 level.? Screws placed at C3 on the left.? Using the same technique.? This was done using the high-speed bur followed by the drill followed by pedicle probe followed by placing the screw.? I was unable to get screws in C4 on the right but did placement on the left. And I also placed bilateral screws at C5.? ? I did place lateral mass screws at C6 bilaterally using the same technique.? And then I placed pedicle screws at T1 and T2 bilaterally high-speed bur was used followed by pedicle probe followed by tap followed by the screw. Once all the screws were placed attention was then brought to doing the laminectomies. Attention was first brought to doing the laminectomy of C5.? With partial facetectomy of C5-6.? This was done using high-speed bur curettes and [place] rongeurs.? The ligamentum flavum was taken down and then the lamina was lifted off.? The medial aspect of facet joints were taken down with the [place] rongeur. In the C6 nerve root was palpated at the C5-6 foramen. This was done bilaterally. The dura was found to be in good repair. Attention was first brought to doing the laminectomy of C4.? With partial facetectomy of C4/5.? This was done using high-speed bur curettes and [place] rongeurs.? The ligamentum flavum was taken down and then the lamina was lifted off.? The medial aspect of facet joints were taken down with the [place] rongeur. In the C5 nerve root was palpated at the C4/5 foramen. This was done bilaterally. The dura was found to be in good repair. Attention was first brought to doing the laminectomy of C3.? With partial facetectomy of C3/4.? This was done using high-speed bur curettes and [place] rongeurs.? The ligamentum flavum was taken down and then the lamina was lifted off.? The medial aspect of facet joints were taken down with the [place] rongeur. In the C4 nerve root was palpated at the C3/4 foramen. This was done bilaterally. The dura was found to be in good repair. Attention was first brought to doing the laminectomy of C2.? With partial facetectomy of C2/3.? This was done using high-speed bur curettes and [place] rongeurs.? The ligamentum flavum was taken down and then the lamina was lifted off.? The medial aspect of facet joints were taken down with the [place] rongeur. In the C3 nerve root was palpated at the C2/3 foramen. This was done bilaterally. The dura was found to be in good repair. Once all the laminectomies were completed attention was then brought to attaching the rods to the screws. Rods were connected from C2 down to T2. And caps were placed and torqued in position. Next attention was brought to decorticating the lamina from C2 and lateral masses C3-C4 C5-C6-C7 and lamina of C7 and T1 and T2 this was all bilaterally.? The bone from the laminectomies along with ostial amp allograft were packed into the gutters.? This was done bilaterally. Next vancomycin powder was placed in the wound deep drain was placed and wound was closed in a layered fashion with 0 Vicryl 2-0 Vicryl and Monocryl suture.? Sterile dressings were applied.? Patient was then flipped back over into the supine position. She was then transferred to the PACU in stable condition.
--- NOTE | 2022-01-02 14:20 | P.MISC_ITS ---
Miscellaneous Note Note: Requested patient be taken from OR to ICU directly to initiate CPAP/BIPAP on arrival. ICU bed unavailable at end of case and patient taken to PACU and at that time I requested BIPAP/CPAP be initiated in PACU. Patient stable in PACU on simple mask. ICU RT attending to other urgent care. Order rimma tacho and auxillary RT called to initiate CPAP/BIPAP. Patient taken to ICU without receiving BIPAP.
--- NOTE | 2022-01-02 14:43 | ANE.PACU2 ---
Inpatient post-anesthesia follow up: Airway intact: Yes Vital signs: Temperature 97.2 F Pulse Rate 88 Respiratory Rate 18 Blood Pressure 172/83 Pulse Oximetry 100 Oxygen Delivery Me thod Simple Mask Oxygen Flow Rate 6 Fraction of Inspir ed Oxygen Hydration adequate: Yes Nausea and vomiting: No Pain level: 1 Mental status: Baseline
[2022-01-02] MEDS: cyclobenzaprine 10 mg Tablet PO ×2 (14:59→21:12)
--- NOTE | 2022-01-02 15:09 | PC.NURSE ---
Pt to floor Pt brought to unit via bed by PACU staff. Pt rec'd by this nurse and RT. Pt came on 6L mask with O2 at 100%. Pt placed on 3L NC. Pt is answering questions and is alert and oriented. Pt is rating pain at 3-4 out of 10. Pt denies any issues with swallowing or shortness of breath. Pt has [place] J collar in place. Dressings to anterior and posterior neck are in place. Hemovac is draining and secure. Pt given ice chips and is swallowing well. Pt oriented to room. Family is at bedside.
--- NOTE | 2022-01-02 16:43 | PM.CONSULT ---
Providers/Reason For Consult Consulting Physician/Specialty*: Santiago Starkey/Internal Medicine Reason for Consult*: Medical Mnagement Attending Physician: Aniket Maher DO Primary Care Provider: Lorrie Gtz History of Present Illness History of Present Illness Fidel Moura is a 56 year old male with past medical history of hypertension, depression and bipolar disorder, was admitted for the management of ?spondylolisthesis at C4-5 s/p anterior and posterior cervical fusion, medicine was consulted for management of comorbid medical conditions. Patient was seen in the ICU after the surgery, he was seen resting comfortably. Has an A-line in place. His vitals and labs have been reviewed. Review of Systems General: Reports: 10 or more systems reviewed and unremarkable except in HPI and below Const: Denies: fever(s), chills, body aches, change in appetite or diaphoresis Card: Denies: palpitations, edema, swelling of feet/ankles, dyspnea on exertion, orthopnea or leg pain with exertion Resp: Denies: dyspnea, productive cough, wheezing or pain on inspiration GI: Denies: abdominal pain, nausea, vomiting, diarrhea or constipation : Denies: flank pain or difficulty urinating Medications/Allergies Home Medications Medication Instructions Recorded Confirmed Last Taken Type baclofen 20 mg tablet 20 mg PO TID 06/09/19 01/03/22 Unknown History lithium carbonate 450 mg 450 mg PO BID 06/09/19 01/03/22 Unknown History tablet,extended release fluoxetine 10 mg capsule 10 mg PO BID #60 caps 09/13/19 01/03/22 Unknown Rx lisinopril 20 1 tab PO BID #120 tabs 09/13/19 01/03/22 Unknown Rx mg-hydrochlorothiazide 25 mg tablet Custom Foot Orthotics Bilaterally #1 ea 12/12/20 01/03/22 Unknown Rx Night splint #1 ea 01/02/21 01/03/22 Unknown Rx naproxen 500 mg tablet (Naprosyn) 500 mg PO BID PRN pain #20 tabs 05/16/21 01/03/22 Unknown Rx [place] J collar #1 ea 10/23/21 01/03/22 Unknown Rx Bone Growth Stimulator #1 ea 01/02/22 01/03/22 Unknown Rx acetaminophen 500 mg tablet 1,000 mg PO BID PRN Pain 01/03/22 01/03/22 Unknown History Allergies Allergy/AdvReac Type Severity Reaction Status Date / Time No Known Allergies Allergy Verified 01/03/22 09:24 Current Medications Generic Name Dose Route Start Last Admin Trade Name Opal PRN Reason Stop Dose Admin Cyclobenzaprine HCl 10 mg 01/02/22 15:00 01/02/22 14:59 Cyclobenzaprine 10 Mg Tablet PO 10 mg TID LISBET Administration Lactated Ringer's 1,000 mls @ 90 mls/hr 01/02/22 13:30 01/02/22 15:07 Lactated Ringers IV Not Given .[id number] LISBET Cefazolin Sodium 2,000 mg/ 50 mls @ 100 mls/hr 01/02/22 15:00 01/02/22 15:00 Sodium Chloride IV 01/03/22 07:29 100 mls/hr Q8H LISBET Administration Protocol PFSH Acute PFSH: Medical History 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 Bipolar disorder Charcot's joint of foot Depression Erectile dysfunction Hammer toe of left foot Hypertension Surgical History H/O lumpectomy Status post right foot surgery Family History Denies family history of Diabetes CAD (coronary artery disease) Clotting disorder Dementia Hyperlipidemia Psychiatric illness Chronic kidney disease (CKD) Suicide Anesthesia complication Bleeding disorder Family history of premature coronary artery disease Lung disease Cancer Hypertension Stroke Social History Smoking and tobacco status: former smoker (40+ years ) Second hand smoke exposure: No Smoking risk assessment/counseling performed?: No Alcohol intake: never Desire information about alcohol rehabilitation?: No Counseling given: No Desire information about substance/drug rehabilitation?: No Counseling given: No Adopted: No Caregiver/support person: No Vitals/I&O/Wt Last Vital Signs Temp 97.2 F L 01/02/22 14:24 Pulse 88 01/02/22 14:24 Resp 18 01/02/22 14:24 BP 172/83 01/02/22 14:24 Pulse Ox 100 01/02/22 14:24 O2 Del Method 01/02/22 14:24 O2 Flow Rate 6 01/02/22 14:24 01/02/22 01/02/22 01/02/22 06:59 14:59 22:59 Intake Total 1705 / 1705 Output Total 1625 / 1625 Balance 80 / 80 Weight last 48 hrs Weight 127.006 kg Physical Exam Const: COMMON NORMALS: patient oriented x3 Resp: COMMON NORMALS: clear to auscultation bilaterally AUSCULTATION: clear to auscultation bilaterally Cardio: COMMON NORMALS: regular rate, regular rhythm, S1 normal heart sound present, S2 normal heart sound present, No gallops present (Cardio), No murmurs present (Cardio), No rub (Cardio) and Peripheral pulses 2+ throughout RATE: regular rate RHYTHM: regular rhythm HEART SOUNDS: S1 normal heart sound present and S2 normal heart sound present PERIPHERAL PULSES: Peripheral pulses 2+ throughout GI: COMMON NORMALS: Normal to inspection, nondistended, normoactive bowel sounds present, Soft to palpation, non-tender, No hepatosplenomegaly present and no masses AUSCULTATION: Yes normoactive bowel sounds PALPATION: Yes Soft to palpation and Yes No hepatosplenomegaly present RECTAL EXAM: Yes deferred Neuro: COMMON NORMALS: patient oriented x3 Urinary Catheter Management: Roy: Cath Placed During This Visit: yes Urinary Catheter Date of Insertion: 01/02/22 Urinary Catheter Time of Insertion: 07:20 Data : 01/03/22 03:04 01/03/22 03:04 A&P Assessment and plan (1) Hypertension: Status: Acute (2) Hyperlipemia: Status: Acute (3) Peripheral neuropathy: Status: Acute Qualifiers: Peripheral neuropathy type: polyneuropathy, unspecified Qualified Code(s): G62.9 - Polyneuropathy, unspecified Plan 56 year old male with past medical history of hypertension, depression and bipolar disorder, was admitted for the management of ?spondylolisthesis at C4-5 s/p anterior and posterior cervical fusion, medicine was consulted for management of comorbid medical conditions. Assessment: HTN Depression BPD Plan: Continue lisinopril hydrochlorothiazide Continue lithium carbonate 450 mg twice daily Consult Attestations Medical Necessity Statement: Per admitting team. 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
--- NOTE | 2022-01-02 17:30 | PC.NURSE ---
[place] J collar change [place] J collar size changed by PT Merlin. Size changed from small short to Long Perez. When pressure from collar was released, blood poured from the right side of the pt's neck saturating 6 4x4 gauzes. Pt leaned forward so we could assess the dressing on pt's back. Dressing is heavily saturated with seepage around the edge. Dr Maher notified and ordered for dressing to be completely changed; 4x4's, abd and covaderm. Pt denies pain and shortness of breath.
[2022-01-02] MEDS: fluoxetine 10 mg Capsule PO (18:15)
[2022-01-02] MEDS: hydroCHLOROthiazide 25 mg Tablet PO (18:15)
[2022-01-02] MEDS: lisinopril 20 mg Tablet PO (18:16)
[2022-01-02] MEDS: lithium carbonate ER 450 mg Tablet PO (18:16)
--- NOTE | 2022-01-02 18:57 | PC.NURSE ---
Shift Note Frequent safety and comfort rounds continue. Orders and/or nursing care completed as indicated. Patient monitored for response to intervention and treatment(s). Education provided includes being careful with transfers. Patient and/or outbound call center representative verbalize understanding. Dressing removed due to being saturated. Pillow under pt was heavily saturated with blood and thrown away. New dressing applied; abd pads and island applied. Bedside report given to Kwabena SUAZO. Dressings and hemovac checked.
--- NOTE | 2022-01-02 19:00 | PC.NURSE ---
Pt. laying in bed comfortably. Neck brace in place. No needs identified at this time.
[2022-01-02] MEDS: ketorolac 30 mg/mL INJ IVP (21:12)
[2022-01-02] MEDS: HYDROcodone-acetaminophen 5-325 mg Tablet PO (21:12)
[2022-01-03] VITALS (104 sets, daily range): BP systolic 116–158; BP diastolic 77–109; PULSE 88–120; RESP 14–26; TEMP 36.8–36.9; O2SAT 93–100
[2022-01-03] MEDS: morphine 4 mg/mL SDV 1 mL IVP (00:25)
[2022-01-03] MEDS: lactated ringers 1,000 ML 90 ML IV (00:26)
[2022-01-03 03:39] LABS: Basophils # 0.1 10^3/uL (0.0-0.1); Basophils % 0.4 %; Eosinophils % 0.1 %; Hematocrit 34.8 % (42.0-52.0); Hemoglobin 11.2 g/dL (11.7-16.6); Lymphocytes # 2.3 10^3/uL (0.8-4.8); Mean Corpuscular HGB Conc 32.2 g/dL (30.0-36.0); Mean Corpuscular Hemoglobin 30.1 pg (28.0-34.0); Mean Corpuscular Volume 93.5 fl (80-94); Monocytes # 1.6 10^3/uL (0.2-0.9); Monocytes % 10.1 %; Neutrophils # 11.29 10^3/uL (1.8-7.7); Neutrophils % 73.8 %; Nucleated Red Blood Cells % 0 %; Platelet Count 257 10^3/cmm (130-400); Red Blood Count 3.72 10^6/uL (4.1-5.3); Red Cell Distribution Width 13.6 % (12.1-15.1); White Blood Count 15.3 10^3/uL (4.0-10.0)
[2022-01-03 04:10] LABS: Anion Gap 13.9 (5-19); Blood Urea Nitrogen 14 mg/dL (6-20); Calcium 8.5 mg/dL (8.5-10.5); Carbon Dioxide 25 mmol/L (22-29); Chloride 106 mmol/L (98-107); Glomerular Filtration Rate 117.5 mL/min (90-130); Glucose 138 mg/dL (65-115); Osmolality Calculated 295 mOsm/kg (285-295); Potassium 3.9 mmol/L (3.5-5.1); Sodium 141 mmol/L (136-145)
[2022-01-03] MEDS: ceFAZolin 2,000 MG in sodium chloride 0.9% (plus) 50 ML 100 MG IV (06:33)
[2022-01-03] MEDS: HYDROcodone-acetaminophen 5-325 mg Tablet PO ×2 (07:55→13:57)
--- NOTE | 2022-01-03 08:19 | P.PN_ITS ---
Subjective Subjective: POD 1 Pt resting comfortably. Reports neck pain. Denies any swallowing or difficulty speaking. Denies any lightheadedness chest pain. Denies any shortness of breath. Vitals/I&O/Wt Last Vital Signs Temp 98.4 F 01/03/22 08:00 Pulse 96 01/03/22 08:00 Resp 16 01/03/22 08:00 BP 139/86 01/03/22 08:00 Pulse Ox 96 01/03/22 08:00 O2 Del Method 01/03/22 07:00 O2 Flow Rate 6 01/02/22 18:00 FiO2 30 01/03/22 00:09 01/02/22 01/03/22 01/03/22 22:59 06:59 14:59 Intake Total 50 / 1755 50 / 1805 Output Total 300 / 1925 1540 / 3465 Balance -250 / -170 -1490 / -1660 Weight last 48 hrs Weight 280 lb Physical Exam Narrative: Patient is resting comfortably. Moving both upper extremities both lower extremities fully. He has good sensation light touch. He has good strength throughout both upper extremities. Hands are warm good cap refill radial pulses are palpable incisions are clean and dry. Hemovac intact. Urinary Catheter Management: Roy: Cath Placed During This Visit: yes Reason for Continuing Indwelling Catheter: Accurate Measurement of Urinary Output in Critically Ill Patients Urinary Catheter Date of Insertion: 01/02/22 Urinary Catheter Time of Insertion: 07:20 Data : 01/03/22 03:04 01/03/22 03:04 A&P Assessment and plan (1) Status post cervical spinal fusion: Encouraged him to mobilize with physical therapy. From orthopedic standpoint we will discharge him to the mid surge floor when cleared medically. Continue the Hemovac drain. Can discontinue Roy catheter. We will discuss discharge home tomorrow as long as his bleeding is contained and he is stable. Status: Acute Attestations Medical Necessity Statement*: Home tomorrow Coding Level of Care Code Acute Warp Drawer for [facility] Wright Diagnoses Status post cervical spinal fusion Z98.1
--- NOTE | 2022-01-03 08:21 | XR_ITS ---
WS: [id number] Cervical spine, 3 views, 01/03/2022 Clinical Data: post op Comparison: Cervical spine, 01/02/2022 Findings: The anterior cervical disc fusion from C4 through C6 with disc cages at C4-C5 and C5-C6 rem ains stable. The posterior cervical fusion from C2 to T2 remains stable. XR/XR cervical spine 3V* [id number] Impression: Anterior and posterior cervical fusions.
[2022-01-03] MEDS: cyclobenzaprine 10 mg Tablet PO ×3 (08:50→20:42)
[2022-01-03] MEDS: lisinopril 20 mg Tablet PO ×2 (08:50→17:52)
[2022-01-03] MEDS: lithium carbonate ER 450 mg Tablet PO ×2 (08:50→17:52)
[2022-01-03] MEDS: docusate sodium 100 mg Capsule PO ×2 (08:50→17:52)
[2022-01-03] MEDS: fluoxetine 10 mg Capsule PO ×2 (08:51→17:52)
[2022-01-03] MEDS: hydroCHLOROthiazide 25 mg Tablet PO ×2 (08:51→17:52)
--- NOTE | 2022-01-03 11:31 | P.PN_ITS ---
Subjective Subjective: Patient was seen and examined this morning resting comfortably, no other acute events. Medications: Medication Review Details: Generic Name Dose Route Start Last Admin Trade Name Freq PRN Reason Stop Dose Admin Hydrocodone Bitart /Acetaminophen 1 - 2 tab 01/02/22 13:17 01/03/22 07:55 Hydrocodone-Acet aminophen 5-325 Mg Tablet PO 2 tab Q4H PRN Administration MODERATE TO SEVER E PAIN Cyclobenzaprine HC l 10 mg 01/02/22 15:00 01/03/22 08:50 Cyclobenzaprine 10 Mg Tablet PO 10 mg TID LISBET Administration Docusate Sodium 100 mg 01/02/22 18:00 01/03/22 08:50 Docusate Sodium 100 Mg Capsule PO 100 mg BID LISBET Administration Fluoxetine HCl 10 mg 01/02/22 18:00 01/03/22 08:51 Fluoxetine 10 Mg Capsule PO 10 mg BID LISBET Administration Hydrochlorothiazid e 25 mg 01/02/22 18:00 01/03/22 08:51 Hydrochlorothiaz festus 25 Mg Tablet PO 25 mg BID LISBET Administration Lactated Ringer's 1,000 mls @ 90 ml s/hr 01/02/22 13:30 01/03/22 00:26 Lactated Ringers IV 90 mls/hr .Q11H7M LISBET Administration Ketorolac Trometha mine 30 mg 01/02/22 13:17 01/02/22 21:12 Ketorolac 30 Mg/ Ml Inj IVP 30 mg Q6H PRN Administration BREAKTHROUGH PAIN Lisinopril 20 mg 01/02/22 18:00 01/03/22 08:50 Lisinopril 20 Mg Tablet PO 20 mg BID LISBET Administration [place] Carbonate 450 mg 01/02/22 18:00 01/03/22 08:50 [place] Carbonat e Er 450 Mg Tablet PO 450 mg BID LISBET Administration Morphine Sulfate 4 mg 01/02/22 13:22 01/03/22 00:25 Morphine 4 Mg/Ml Sdv 1 Ml IVP 4 mg Q4H PRN Administration SEVERE PAIN Vitals/I&O/Wt Last Vital Signs Temp 98.4 F 01/03/22 08:00 Pulse 96 01/03/22 08:00 Resp 16 01/03/22 08:00 BP 139/86 01/03/22 08:00 Pulse Ox 96 01/03/22 08:00 O2 Del Method 01/03/22 07:00 O2 Flow Rate 6 01/02/22 18:00 FiO2 30 01/03/22 00:09 01/02/22 01/03/22 01/03/22 22:59 06:59 14:59 Intake Total 50 / 1755 50 / 1805 300 / 300 Output Total 300 / 1925 1540 / 3465 200 / 200 Balance -250 / -170 -1490 / -1660 100 / 100 Weight last 48 hrs Weight 127.006 kg Physical Exam Const: COMMON NORMALS: patient oriented x3 Resp: COMMON NORMALS: clear to auscultation bilaterally AUSCULTATION: clear to auscultation bilaterally Cardio: COMMON NORMALS: regular rate, regular rhythm, S1 normal heart sound present, S2 normal heart sound present, No gallops present (Cardio), No murmurs present (Cardio), No rub (Cardio) and Peripheral pulses 2+ throughout RATE: regular rate RHYTHM: regular rhythm HEART SOUNDS: S1 normal heart sound present and S2 normal heart sound present PERIPHERAL PULSES: Peripheral pulses 2+ throughout GI: COMMON NORMALS: Normal to inspection, nondistended, normoactive bowel soun ds present, Soft to palpation, non-tender, No hepatosplenomegaly present and no masses AUSCULTATION: Yes normoactive bowel sounds PALPATION: Yes Soft to palpation and Yes No hepatosplenomegaly present RECTAL EXAM: Yes deferred Neuro: COMMON NORMALS: patient oriented x3 Urinary Catheter Management: Roy: Cath Placed During This Visit: yes, but has since been removed by the nurse Reason for Continuing Indwelling Catheter: Decision to DC Catheter Urinary Catheter Date of Insertion: 01/02/22 Urinary Catheter Time of Insertion: 07:20 Date Urinary Catheter Removed: 01/03/22 Time Urinary Catheter Discontinued: 08:59 Data : 01/03/22 03:04 01/03/22 03:04 A&P Assessment and plan (1) Hypertension: Status: Acute (2) Hyperlipemia: Status: Acute (3) Peripheral neuropathy: Status: Acute Qualifiers: Peripheral neuropathy type: polyneuropathy, unspecified Qualified Code(s): G62.9 - Polyneuropathy, unspecified Plan 56 year old male with past medical history of hypertension, depression and bipolar disorder, was admitted for the management of ?spondylolisthesis at C4-5 s/p anterior and posterior cervical fusion, medicine was consulted for management of comorbid medical conditions. Assessment: HTN Depression BPD Plan: Continue lisinopril hydrochlorothiazide Continue lithium carbonate 450 mg twice daily Attestations Medical Necessity Statement*: Per primary team Coding Level of Care Code Acute Applications Developer for [facility] Fwd Diagnoses Hypertension I10 Hyperlipemia E78.5 Peripheral neuropathy G62.9 Peripheral neuropathy type: polyneuropathy, unspecified
--- NOTE | 2022-01-03 16:38 | PC.NURSE ---
Rounded with Dr. Maher. Updated on patient's status. Orders to stop IVF and DC hemovac drain. Plan to discharge home tomorrow.
[2022-01-04] VITALS (45 sets, daily range): BP systolic 119–148; BP diastolic 77–109; PULSE 107–116; RESP 0–23; TEMP 36.5; O2SAT 94–100
[2022-01-04] MEDS: HYDROcodone-acetaminophen 5-325 mg Tablet PO ×2 (00:02→06:28)
--- NOTE | 2022-01-04 00:08 | PC.NURSE ---
Patient able to sit upright for visualization of dressing to posterior neck. Dressing intact, no s/s complications at this time.
--- NOTE | 2022-01-04 04:18 | PC.NURSE ---
No strikethrough noted to dressings to posterior neck, patient pain is well controlled on oral [place] as prescribed currently.
--- NOTE | 2022-01-04 06:13 | PC.NURSE ---
Patient slept through majority of Shift, prior to falling asleep requested CPAP be reapplied. Patient tolerated CPAP well overnight with no issues, FiO2 30% through the night. Minimal pain medication required. No strikethrough on bandages or sheets from incision. Patient remained tachycardic throughout shift.
--- NOTE | 2022-01-04 06:38 | PC.NURSE ---
Dressings changed by Dr. Nika MCCORMICK with this RN present. Incisions are well approximated, anterior incision approximated with nylon sutures and steri strips, posterior incision approximated with nylon sutures.
--- NOTE | 2022-01-04 06:39 | PM.PN ---
Subjective Subjective: POD 2 Patient resting comfortably. Has minimal swallowing discomfort. Mild neck pain controlled with hydrocodone. He is ready for discharge home. Vitals/I&O/Wt Last Vital Signs Temp 98.5 F 01/03/22 15:00 Pulse 112 H 01/04/22 06:00 Resp 2 L 01/04/22 06:00 BP 126/92 01/04/22 06:00 Pulse Ox 100 01/04/22 05:00 O2 Del Method 01/03/22 07:00 O2 Flow Rate 6 01/02/22 18:00 FiO2 30 01/03/22 21:59 01/03/22 01/03/22 01/04/22 14:59 22:59 06:59 Intake Total 600 / 600 330 / 930 Output Total 200 / 200 350 / 550 950 / 1500 Balance 400 / 400 -20 / 380 -950 / -570 Weight last 48 hrs Weight 285 lb Weight 280 lb Physical Exam Narrative: Patient is alert and oriented x3 with a good general appearance normal mood and affect. Nontender with palpation about the incisional site. Incision clean and dry with [place] dressing changed. No signs of infection. Good motor strength throughout both upper extremities. Appears to fire in all motor groups with 4/5 strength. Hands are warm good cap refill in all digits. Normal sensation to light touch in all dermatomal areas. Urinary Catheter Management: Roy: Cath Placed During This Visit: yes, but has since been removed by the nurse Reason for Continuing Indwelling Catheter: Decision to DC Catheter Urinary Catheter Date of Insertion: 01/02/22 Urinary Catheter Time of Insertion: 07:20 Date Urinary Catheter Removed: 01/03/22 Time Urinary Catheter Discontinued: 08:59 Data : 01/03/22 03:04 01/03/22 03:04 A&P Assessment and plan (1) Status post cervical spinal fusion: Dressings were changed this morning [place] J collar intact. Patient is ready for discharge home we will see him back in the office in 1 week's time where he will call if he is having problems. Hydrocodone for pain. Encouraged him to continue walking program no bending lifting or twisting activities. Continue incentive spirometry for pulmonary toilet. Status: Acute (2) Cervical spondylosis with myelopathy: Status: Acute Attestations Medical Necessity Statement*: DC home today Coding Level of Care Code Acute Opthalmic Tech for [facility] Fwd Diagnoses Status post cervical spinal fusion Z98.1 Cervical spondylosis with myelopathy M47.12
--- NOTE | 2022-01-04 08:35 | PC.NURSE ---
Spoke to Dr. Starkey regarding patient's discharge home. Ok from his standpoint for patient to be discharged home.
[2022-01-04] MEDS: lisinopril 20 mg Tablet PO (09:11)
[2022-01-04] MEDS: cyclobenzaprine 10 mg Tablet PO (09:12)
[2022-01-04] MEDS: docusate sodium 100 mg Capsule PO (09:12)
[2022-01-04] MEDS: lithium carbonate ER 450 mg Tablet PO (09:13)
[2022-01-04] MEDS: hydroCHLOROthiazide 25 mg Tablet PO (09:13)
[2022-01-04] MEDS: fluoxetine 10 mg Capsule PO (09:13)
--- NOTE | 2022-01-08 07:50 | P.DS_ITS ---
Discharge Providers Date of Admission: 01/02/22 13:26 Date of Discharge: January 04, 2022 Attending Provider at Admission: Aniket Maher DO Attending Provider at Discharge: Aniket Maher DO Primary Care Provider: Lorrie Gtz Diagnoses at Discharge Discharge Diagnosis (1) Status post cervical spinal fusion: Status: Acute (2) Cervical spondylosis with myelopathy: Status: Acute Reason for Visit Reason for Visit: C4-5C5-6 ACDF W/ C2-T2 FUSION W DECOM Hospital Course Hospital Course uneventful Physical Exam Urinary Catheter Management: Roy: Cath Placed During This Visit: yes, but has since been removed by the nurse Reason for Continuing Indwelling Catheter: Decision to DC Catheter Urinary Catheter Date of Insertion: 01/02/22 Urinary Catheter Time of Insertion: 07:20 Date Urinary Catheter Removed: 01/03/22 Time Urinary Catheter Discontinued: 08:59 Discharge Data Studies Completed and Pending Completed Studies During Hospitalization Category Date Time Status XR cervical spine 3V* [id number] Routine Exams 01/02/22 Completed XR cervical spine 3V* [id number] Routine Exams 01/03/22 08:21 Completed Radiology Impressions Cervical Spine X-Ray 01/03/22 08:21 Impression: Anterior and posterior cervical fusions. Laboratory Results WBC 15.3 10^3/uL (4.0-10.0) H 01/03/22 03:04 RBC 3.72 10^6/uL (4.1-5.3) L 01/03/22 03:04 Hgb 11.2 g/dL (11.7-16.6) L 01/03/22 03:04 Hct 34.8 % (42.0-52.0) L 01/03/22 03:04 MCV 93.5 fl (80-94) 01/03/22 03:04 MCH 30.1 pg (28.0-34.0) 01/03/22 03:04 MCHC 32.2 g/dL (30.0-36.0) 01/03/22 03:04 RDW 13.6 % (12.1-15.1) 01/03/22 03:04 Plt Count 257 10^3/cmm (130-400) 01/03/22 03:04 MPV 11.0 fL (7.4-10.4) H 01/03/22 03:04 Neut % (Auto) 73.8 % 01/03/22 03:04 Lymph % (Auto) 15.0 % 01/03/22 03:04 [place] % (Auto) 10.1 % 01/03/22 03:04 Eos % (Auto) 0.1 % 01/03/22 03:04 Baso % (Auto) 0.4 % 01/03/22 03:04 Neut # (Auto) 11.29 10^3/uL (1.8-7.7) H 01/03/22 03:04 Lymph # (Auto) 2.3 10^3/uL (0.8-4.8) 01/03/22 03:04 [place] # (Auto) 1.6 10^3/uL (0.2-0.9) H 01/03/22 03:04 Eos # (Auto) 0.0 10^3/uL (0.0-0.8) 01/03/22 03:04 Baso # (Auto) 0.1 10^3/uL (0.0-0.1) 01/03/22 03:04 Nucleated RBC % (auto) 0 % 01/03/22 03:04 Nucleated RBCs # 0.0 /100WBC 01/03/22 03:04 Sodium 141 mmol/L (136-145) 01/03/22 03:04 Potassium 3.9 mmol/L (3.5-5.1) 01/03/22 03:04 Chloride 106 mmol/L (98-107) 01/03/22 03:04 Carbon Dioxide 25 mmol/L (22-29) 01/03/22 03:04 Anion Gap 13.9 (5-19) 01/03/22 03:04 BUN 14 mg/dL (6-20) 01/03/22 03:04 Creatinine 0.7 mg/dL (0.7-1.2) 01/03/22 03:04 GFR Calculation 117.5 mL/min (90-130) 01/03/22 03:04 Glucose 138 mg/dL (65-115) H 01/03/22 03:04 POC Glucose 118 mg/dL (70-110) H 01/02/22 12:15 Calculated Osmolality 295 mOsm/kg (285-295) 01/03/22 03:04 Calcium 8.5 mg/dL (8.5-10.5) 01/03/22 03:04 Blood Type O Positive 01/02/22 06:43 Rho(D) Type Positive 01/02/22 06:43 Antibody Screen Negative 01/02/22 06:43 Crossmatch See Detail 01/02/22 06:43 Vitals Last Vital Signs Temp 97.7 F 01/04/22 11:04 Pulse 111 H 01/04/22 11:04 Resp 15 01/04/22 11:04 BP 125/88 01/04/22 11:04 Pulse Ox 96 01/04/22 11:04 O2 Del Method 01/03/22 07:00 O2 Flow Rate 6 01/02/22 18:00 FiO2 30 01/03/22 21:59 Discharge Plan Discharge Patient Disposition: Home Condition: Stable Prescriptions: New hydrocodone-acetaminophen 5-325 mg Tablet 1 - 2 tab PO Q4H PRN (Reason: Moderate To Severe Pain) Qty: 40 0RF Continued baclofen 20 mg tablet 20 mg PO TID lithium carbonate 450 mg tablet extended release 450 mg PO BID (DME) [employer] Orthotics Bilaterally See Rx Instructions .Route .MEDSUPPLY Qty: 1 0RF Rx Instructions: As directed by Sanjuana ([facility] [place]) Night splint See Rx Instructions .ROUTE .MEDSUPPLY Qty: 1 0RF Rx Instructions: As directed ([facility] [place]) Sokaogon J collar See Rx Instructions .Route .MEDSUPPLY Qty: 1 0RF Rx Instructions: As directed fluoxetine 10 mg capsule 10 mg PO BID Qty: 60 0RF Rx Instructions: Pt needs an appt for more refills lisinopril-hydrochlorothiazide 20-25 mg tablet 1 tab PO BID Qty: 120 0RF (DME) Bone Growth Stimulator See Rx Instructions .Route .MEDSUPPLY Qty: 1 0RF Rx Instructions: As directed naproxen [Naprosyn] 500 mg tablet 500 mg PO BID PRN (Reason: pain) Qty: 20 0RF Held acetaminophen 500 mg Tablet 1,000 mg PO BID PRN (Reason: Pain) Hold Instructions: Resume on 01/30/22. While Taking Hydrocodone No Action oxycodone 5 mg tablet 5 - 10 mg PO Q4H PRN (Reason: pain) 7 Days Qty: 40 0RF cyclobenzaprine 10 mg tablet 10 mg PO TID PRN (Reason: muscle spasm) 30 Days Qty: 90 1RF Discharge Orders: Discharge Order (Routine); Ordered 01/04/22 Ordered By: Michel Monsivais Referrals: Aniket Maher DO [Physician] - 1 week (Follow up appointment : post op surgery: December 1:45 pm appointment.) Discharge Diet: Advance as tolerated Discharge Activity: Limit activity as instructed Patient Instructions: Hydrocodone/Acetaminophen (By mouth), Constipation (DC), Fall Prevention (DC), Anterior Cervical Discectomy (DC), Opioid Safety, Post Anesthesia Care Activity Restrictions/Additional Instructions: Thank you for choosing [facility] for your care! The following is a list of instructions, from your provider, to follow upon your discharge to ensure you have the optimal recovery from your recent injury or surgery. Anterior Cervical Discectomy and Fusion and Posterior Cervical Fusion: What to Expect at Home Your Recovery Follow-up care is a ribera part of your treatment and safety. Be sure to make and go to all appointments, and call your doctor if you are having problems. If you do not already have a follow-up appointment made, call office in the next 1-3 days to make follow up appointment for 1weeks at [phone]. It is also a good idea to know your test results and keep a list of the medicines you take. You can expect your neck to feel stiff or sore after surgery. This should improve in the weeks after surgery. But it may take 4 to 6 months for you to get better completely. You may have trouble sitting or standing in one position for very long and may need pain medicine in the weeks after your surgery. It may take 4 to 6 weeks to get back to your usual activities, but it may depend on what kind of surgery you had. Your throat will feel sore and it may be difficult to swallow for the first 3 days after your surgery. As long as you can get liquids down without difficulty, this should slowly improve, otherwise call our office or seek medical attention if it becomes increasingly difficult to get anything down including liquids. Avoid hot liquids for first 3-5 days. Soothing foods/liquids such as jello, pudding, and luke warm soups are recommended until swallowing improves. Staying elevated will also help, it's advised you keep propped up at while sleeping to help reduce the swelling. You may use an ice pack directly on your incision or around it on the front of your neck, using a cloth to protect your skin; and a heating pad to the back of your neck as needed. Do not use over the counter anti-inflammatory medications (Ibuprofen, Motrin, Aleve, Advil, etc) Taking these meds after having a fusion can delay fusion rates, we recommend you avoid them for the first 3 months after your surgery[address] Dr. Maher may advise you to work with a physical therapist to strengthen the muscles around your neck and back - this will be discussed at your follow - up appointments. The pain or numbness you were having in your arms before surgery should get better or go away completely. This care sheet gives you a general idea about how long it will take for you to recover. But each person recovers at a different pace. Follow the steps below to get better as quickly as possible. How can you care for yourself at home? Activity ? Rest when you feel tired. Getting enough sleep will help you recover. ? Try to walk each day. Start by walking a little more than you did the day before. Bit by bit, increase the amount you walk. Walking boosts blood flow and helps prevent pneumonia and constipation. Walking may also decrease your muscle soreness after surgery. ? No lifting anything that is more that 5 pounds. This may include heavy grocery bags and milk containers, a heavy briefcase or backpack, cat litter or dog food bags, a child, or a vacuum laboratory equipment cleaner. ? Avoid strenuous activities, such as bicycle riding, jogging, weightlifting, or aerobic exercise, until your doctor says it is okay. ? Do not drive until your follow-up visit after your surgery, or until your doctor says it isokay. ? Avoid taking long car trips for 2 to 4 weeks after surgery. Your neck may become tired and painful from sitting too long in one position. ? You will probably need to take 4 to 6 weeks off from work. It depends on the type of work you do and how you feel. ? You may have sex as soon as you feel able, but avoid positions that put stress on your neck or cause pain. Diet ? You can eat your normal diet. If your stomach is upset, try bland, low-fat foods like plain rice, broiled chicken, toast, and yogurt ? Drink plenty of fluids. If you have kidney, heart, or liver disease and have to limit fluids, talk with your doctor before you increase the amount of fluids you drink. ? You may notice that your bowel movements are not regular right after your surgery. This is common. Try to avoid constipation and straining with bowel movements. You may want to take a fiber supplement every day. If you have not had a bowel movement after a couple of days, ask your doctor about taking a mild laxative. Medicines ? Take pain medicines exactly as directed. 1. If Dr. Maher gave you a prescription medicine for pain, take lt as prescribed. 2. Do not take two or more pain medicines at the same time unless the doctor told you to. Many pain medicines have acetaminophen, which is Tylenol. Too much acetaminophen {Tylenol) can be harmful. 3. If you think your pain pill is making you sick to your stomach: 4. Take your pills after meals (unless your doctor has told you not to). 5. Ask your Dr. for a different pain pill. Incisioncare ? Remove your dressing 48 hours after your surgery. Ok to shower and get the incision wet. Do not overtly wash your incision. When done, pad dry, leave open to air thereafter. Avoid creams and ointments directly on your incision. ? Your sutures in the incision will dissolve and fall out on their own. ? Keep the area clean and dry. You may cover it with a gauze bandage if it weeps or rubs against clothing; if you choose to do this, change the dressing everyday. Other instructions ? Use a heating pad, hot water bottle, or gentle massage on your back to reduce stiffness. Avoid putting heat on your incision When should you call for help? ? Call 911 anytime you think you may need emergency care. For example, call if: ? You pass out (lose consciousness). ? You have sudden chest pain and shortness of breath, or you cough upblood. ? You cannot swallow. ? You have severe pain in your neck or back. ? Call your Dr. or seek immediate medical care if: ? You have pain that does not get better after you take pain pills. ? You have loose stitches, or your incision comes open. ? You have blood or fluid draining from the incision. ? You have signs of infection, such as: 1. Increased pain, swelling, warmth, or redness. 2. Red streaks leading from the site. 3. Pus draining from the site. 4. Swollen lymph nodes in your neck or armpits. 5. A fever. ? You have severe pain in your arms. ? You have new or increased weakness or numbness in your arms. ? Watch closely for any changes in your health, and be sure to contact your doctor if: ? You do not have a bowel movement after taking a laxative. Discharge Attestations Time Spent in Discharge Care*: less than 30 min Quality Metrics Clinical Quality Measures [ No reported AMI, CVA or VTE this stay] Coding Level of Care Code Acute g FW DC note Diagnoses Status post cervical spinal fusion Z98.1 Cervical spondylosis with myelopathy M47.12
== END 2022-01-04 11:51 | disposition home or self-care (01) | DRG 454 ==
LOC: ICU 14:17 → MEDSURG 14:17
PROVIDERS: Anesthesiology; Internal Medicine; Admitting Provider Orthopaedic Surgery; PCP Nurse Practitioner Family; Visit Provider Orthopaedic Surgery
PROC: 0RB30ZZ Excision of Cervical Vertebral Disc, Open Approach (ICD-10-PCS; CPT 22551; principal; 2022-01-02 07:00)
PROC: 0RG20A0 Fusion of 2 or more Cervical Vertebral Joints with Interbody Fusion Device, Anterior Approach, Anterior Column, Open Approach (ICD-10-PCS; CPT 22600; 2022-01-02 07:00)
PROC: 0RG20A0 Fusion of 2 or more Cervical Vertebral Joints with Interbody Fusion Device, Anterior Approach, Anterior Column, Open Approach (ICD-10-PCS; CPT 63001; 2022-01-02 07:00)
DX: M47.12 Other spondylosis with myelopathy, cervical region (principal); A52.16 Charcot's arthropathy (tabetic); M43.12 Spondylolisthesis, cervical region; F31.9 Bipolar disorder, unspecified; I10 Essential (primary) hypertension; Z87.891 Personal history of nicotine dependence; E78.5 Hyperlipidemia, unspecified; G62.9 Polyneuropathy, unspecified
CPT/HCPCS: 36415; 36416; 51702; 72040; 76000; 80048; 82962; 85025; 86850; 86900; 86920; 94660; 97161; 97530; 97760; C1713; C9359; J0330; J1100; J1170; J1885; J2270; J2370; J2405; J2704; J2710; J3010; J3370; J3490; J7030; L0174

== ENCOUNTER → 2022-01-10 13:42 | Outpatient (BNVA) | payer OTHER, SELFPAY | PROVIDERS: PCP Nurse Practitioner Family; Visit Provider Orthopaedic Surgery | DX: Z47.89 Encounter for other orthopedic aftercare (principal); Z98.1 Arthrodesis status | CPT/HCPCS: 99024 ==

== ENCOUNTER 2022-01-14 20:32 | Emergency (ER) | payer OTHER, SELFPAY ==
[2022-01-14 20:54] VITALS: BP 113/67; PULSE 98; RESP 20; TEMP 37.2; O2SAT 94; BMI 34.3
--- NOTE | 2022-01-14 21:11 | CTR_ITS ---
PROCEDURE INFORMATION: Exam: CT Cervical Spine Without Contrast Exam date and time: 01/14/2022 9:54 PM Age: 56 years old Clinical indication: Prior surgery; Surgery date: <1 month; Patient HX: Patient 12 days post op from cervical fusion. C/O worsening neck pain and increasing dysphagia. TECHNIQUE: Imaging protocol: Computed tomography of the cervical spine without contrast. Radiation optimization: All CT scans at this facility use at least one of these dose optimization techniques: automated exposure control; mA and/or kV adjustment per patient size (includes targeted exams where dose is matched to clinical indication); or iterative reconstruction. COMPARISON: MR cervical spin wo con* [id number] 06/26/2021 7:17 AM RADIATION DOSE METRICS: Total DLP (mGy-cm): 348.67 FINDINGS: Bones/joints: Bone fragments are seen in the right paraspinous tissues at C3 and C4 a can be correlated for bone chips for posterior element fusion. Discs/Spinal canal/Neural foramina: Anterior fusion hardware is in place with intervertebral disc space devices also present at C4-C5 and C5-C6. Posterior instrumentation is in place spanning C2--T2. There has been posterior decompression C2-C3 through C5-C6. Fluid and small quantities of air/gas are seen at the posterior decompression sites and are nonspecific in setting of recent surgery. Fluid is estimated at up to 7 cm by 4.5 cm by 4 cm Lungs: Calcified pulmonary granulomatous change. Soft tissues: Please see separate report. CT/CT cervical spin wo con* [id number] IMPRESSION: Surgical changes as above. Fluid at posterior decompression sites C2-C3 through C5-C6 may represent seroma with additional differential considerations of infection or pseudomeningocele.
--- NOTE | 2022-01-14 21:11 | CTR_ITS ---
PROCEDURE INFORMATION: Exam: CT Neck With Contrast Exam date and time: 01/14/2022 9:58 PM Age: 56 years old Clinical indication: Dysphagia / difficulty swallowing; Prior surgery; Surgery date: <1 month; Patient HX: Patient 12 days post op from cervical fusion. C/O worsening neck pain and increasing dysphagia. ; Additional info: Neck pain difficult swallowing TECHNIQUE: Imaging protocol: Computed tomography of the neck with contrast. Radiation optimization: All CT scans at this facility use at least one of these dose optimization techniques: automated exposure control; mA and/or kV adjustment per patient size (includes targeted exams where dose is matched to clinical indication); or iterative reconstruction. Contrast material: OMNI 350; Contrast volume: 80 ml; Contrast route: INTRAVENOUS (IV); COMPARISON: CT cervical spin wo con* [id number] 01/14/2022 9:54 PM RADIATION DOSE METRICS: Total DLP (mGy-cm): 287.91 FINDINGS: Pharynx: Unremarkable. No significant tonsillar enlargement. Larynx: Unremarkable. Epiglottis is normal. Prevertebral and retropharyngeal spaces: Retropharyngeal/prevertebral soft tissue thickening measures up to 1.4 cm greatest thickness. No contrast extravasation Salivary glands: Normal. Glands are normal in size. Thyroid: Normal. No enlarged or calcified nodules. Lymph nodes: Unremarkable. No lymphadenopathy. Trachea: Visualized trachea is unremarkable. Lungs: Calcified pulmonary granulomatous change. Bones/joints: Bony findings will be discussed on separate report. Soft tissues: See Prevertebral and retropharyngeal spaces finding. CT/CT neck w con* [id number] IMPRESSION: Retropharyngeal mild soft tissue thickening may relate to edema or mild hematoma in postoperative setting. Infection is difficult to exclude and clinical correlation is needed. No discrete retropharyngeal fluid collection.
[2022-01-14 21:24] LABS: Basophils # 0.1 10^3/uL (0.0-0.1); Basophils % 0.6 %; Eosinophils # 0.2 10^3/uL (0.0-0.8); Eosinophils % 1.1 %; Hemoglobin 12.3 g/dL (11.7-16.6); Lymphocytes # 1.7 10^3/uL (0.8-4.8); Lymphocytes % 9.5 %; Mean Corpuscular HGB Conc 32.4 g/dL (30.0-36.0); Mean Corpuscular Hemoglobin 29.1 pg (28.0-34.0); Mean Corpuscular Volume 89.8 fl (80-94); Mean Platelet Volume 10.5 fL (7.4-10.4); Monocytes # 1.3 10^3/uL (0.2-0.9); Monocytes % 7.7 %; Neutrophils # 13.86 10^3/uL (1.8-7.7); Neutrophils % 79.7 %; Nucleated Red Blood Cells % 0 %; Platelet Count 464 10^3/cmm (130-400); Red Blood Count 4.23 10^6/uL (4.1-5.3); White Blood Count 17.4 10^3/uL (4.0-10.0)
--- NOTE | 2022-01-14 21:26 | ED_ITS ---
HPI - Neck Pain/Injury General: Chief Complaint: Neck Pain/Injury Stated Complaint: Neck pain Time Seen by Provider: 01/14/22 21:00 Source: patient Mode of arrival: ambulatory Limitations: no limitations History of Present Illness: 56-year-old male who states he had had cervical spine fusion with anterior posterior approach roughly 10 days ago. He states has been having increasing pain since then he states he feels dehydrated states that difficulty swallowing as well. He rates his pain an 8 out of 10 he denies any fevers denies any worsening improving factors denies any vomiting or diarrhea. 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 Bipolar disorder Charcot's joint of foot Depression Erectile dysfunction Hammer toe of left foot Hypertension Surgical History H/O lumpectomy Status post right foot surgery Family History Denies family history of Diabetes CAD (coronary artery disease) Clotting disorder Dementia Hyperlipidemia Psychiatric illness Chronic kidney disease (CKD) Suicide Anesthesia complication Bleeding disorder Family history of premature coronary artery disease Lung disease Cancer Hypertension Stroke Social History Smoking and tobacco status: former smoker (40+ years ) Second hand smoke exposure: No Smoking risk assessment/counseling performed?: No Alcohol intake: never Desire information about alcohol rehabilitation?: No Counseling given: No Desire information about substance/drug rehabilitation?: No Counseling given: No Adopted: No Caregiver/support person: No Physical Exam Const: COMMON NORMALS: patient oriented x3 HENMT: COMMON NORMALS: normocephalic and atraumatic HEAD & SCALP: normoce phalic and atraumatic Eye: COMMON NORMALS: Equal, round and reactive pupils present and EOMs intact bilaterally PUPIL: Yes Equal, round and reactive pupils present Neck/C-Spine: OTHER: Patient is in c-collar minimal swelling noted incision anteriorly is clean dry and intact Chest: COMMONS NORMALS: normal inspection of the chest and normal palpation of entire chest wall Resp: COMMON NORMALS: normal respiratory effort, No retractions, No use of accessory muscles and clear to auscultation bilaterally AUSCULTATION: clear to auscultation bilaterally Cardio: COMMON NORMALS: regular rate, regular rhythm and No murmurs present (Cardio) RATE: regular rate RHYTHM: regular rhythm GI: COMMON NORMALS: Normal to inspection, nondistended, normoactive bowel sounds present, Soft to palpation, non-tender and no masses PALPATION: Yes Soft to palpation Extremity: COMMON NORMALS: normal to inspection and full ROM Neuro: COMMON NORMALS: patient oriented x3, moves all extremities and no focal motor deficits Psych: COMMON NORMALS: mental status grossly normal, Normal thought process present and cooperative THOUGHT PROCESS: Normal thought process present Skin: COMMON NORMALS: no rashes or lesions noted and no wounds GENERAL SKIN EXAM: no rashes or lesions noted Course Vital Signs: Vital signs: Vital Signs Temperature 98.9 F 01/14/22 20:54 Pulse Rate 97 01/15/22 00:50 Respiratory Rate 18 01/15/22 00:50 Blood Pressure 106/65 01/15/22 00:50 Pulse Oximetry 96 01/15/22 00:50 Oxygen Delivery Me thod 01/15/22 00:50 MDM - Neck Pain/Injury Medical Decision Making Patient presents with postop pain along with some slight difficulty swallowing. CT shows some slight swelling is likely postop he has no signs of any severe infection he is able to tolerate a liquids and able to swallow solids here he stable for discharge I spoke to Dr. Maher discussed case he will follow-up he is to return if worsening. Lab Data : 01/14/22 20:56 01/14/22 20:56 Radiology Impressions Cervical Spine CT 01/14/22 21:11 IMPRESSION: Surgical changes as above. Fluid at posterior decompression sites C2-C3 through C5-C6 may represent seroma with additional differential considerations of infection or pseudomeningocele. Neck CT 01/14/22 21:11 IMPRESSION: Retropharyngeal mild soft tissue thickening may relate to edema or mild hematoma in postoperative setting. Infection is difficult to exclude and clinical correlation is needed. No discrete retropharyngeal fluid collection. Chest X-Ray 01/14/22 21:58 IMPRESSION: 1. No acute findings. 2. Orthopedic hardware is noted for anterior and posterior fusion of the cervical spine as described above. Laboratory Results WBC 17.4 10^3/uL (4.0-10.0) H 01/14/22 20:56 RBC 4.23 10^6/uL (4.1-5.3) 01/14/22 20:56 Hgb 12.3 g/dL (11.7-16.6) 01/14/22 20:56 Hct 38.0 % (42.0-52.0) L 01/14/22 20:56 MCV 89.8 fl (80-94) 01/14/22 20:56 MCH 29.1 pg (28.0-34.0) 01/14/22 20:56 MCHC 32.4 g/dL (30.0-36.0) 01/14/22 20:56 RDW 12.0 % (12.1-15.1) L 01/14/22 20:56 Plt Count 464 10^3/cmm (130-400) H 01/14/22 20:56 MPV 10.5 fL (7.4-10.4) H 01/14/22 20:56 Neut % (Auto) 79.7 % 01/14/22 20:56 Lymph % (Auto) 9.5 % 01/14/22 20:56 Cottle % (Auto) 7.7 % 01/14/22 20:56 Eos % (Auto) 1.1 % 01/14/22 20:56 Baso % (Auto) 0.6 % 01/14/22 20:56 Neut # (Auto) 13.86 10^3/uL (1.8-7.7) H 01/14/22 20:56 Lymph # (Auto) 1.7 10^3/uL (0.8-4.8) 01/14/22 20:56 Cottle # (Auto) 1.3 10^3/uL (0.2-0.9) H 01/14/22 20:56 Eos # (Auto) 0.2 10^3/uL (0.0-0.8) 01/14/22 20:56 Baso # (Auto) 0.1 10^3/uL (0.0-0.1) 01/14/22 20:56 Nucleated RBC % (auto) 0 % 01/14/22 20:56 Nucleated RBCs # 0.0 /100WBC 01/14/22 20:56 Sodium 132 mmol/L (136-145) L 01/14/22 20:56 Potassium 4.2 mmol/L (3.5-5.1) 01/14/22 20:56 Chloride 94 mmol/L (98-107) L 01/14/22 20:56 Carbon Dioxide 24 mmol/L (22-29) 01/14/22 20:56 Anion Gap 18.2 (5-19) 01/14/22 20:56 BUN 27 mg/dL (6-20) H 01/14/22 20:56 Creatinine 1.2 mg/dL (0.7-1.2) 01/14/22 20:56 GFR Calculation 63.1 mL/min (90-130) L 01/14/22 20:56 Glucose 79 mg/dL (65-115) 01/14/22 20:56 Calculated Osmolality 278 mOsm/kg (285-295) L 01/14/22 20:56 Calcium 10.1 mg/dL (8.5-10.5) 01/14/22 20:56 Total Bilirubin 0.3 mg/dL (0.15-1.2) 01/14/22 20:56 AST 10 U/L (0-40) 01/14/22 20:56 ALT < 5 U/L (0-41) 01/14/22 20:56 Alkaline Phosphatase 120 U/L (40-130) 01/14/22 20:56 Total Protein 7.3 g/dL (6.6-8.7) 01/14/22 20:56 Albumin 4.1 g/dL (3.5-5.2) 01/14/22 20:56 Globulin 3.2 g/dL (1.3-4.6) 01/14/22 20:56 Urine Color Yellow (Yellow) 01/14/22 23:35 Urine Appearance Clear (CLEAR) 01/14/22 23:35 Urine pH 7 (5-7) 01/14/22 23:35 Ur Specific [place] 1.010 (1.005-1.030) 01/14/22 23:35 Urine Protein Neg (Negative) 01/14/22 23:35 Urine Glucose (UA) Norm (Normal) 01/14/22 23:35 Urine Ketones 1+ (Negative) H 01/14/22 23:35 Urine Blood Neg (Negative) 01/14/22 23:35 Urine Nitrate Negative (Negative) 01/14/22 23:35 Urine Bilirubin Neg (Negative) 01/14/22 23:35 Urine Urobilinogen Norm mg/dL (Negative) 01/14/22 23:35 Ur Leukocyte Esterase Negative (Negative) 01/14/22 23:35 Discharge Plan Discharge Patient Disposition: Home Clinical Impression: Post-op pain Condition: Stable Prescriptions: New cephalexin 500 mg capsule 500 mg PO TID 7 Days Qty: 21 0RF No Action baclofen 20 mg tablet 20 mg PO TID lithium carbonate 450 mg tablet extended release 450 mg PO BID (DME) Custom Foot Orthotics Bilaterally See Rx Instructions .Route .MEDSUPPLY Qty: 1 0RF Rx Instructions: As directed by Sanjuana (DME) Night splint See Rx Instructions .ROUTE .MEDSUPPLY Qty: 1 0RF Rx Instructions: As directed oxycodone [OxyContin] 10 mg tablet,oral only,ext.rel.12 hr 10 mg PO Q12H 7 Days Qty: 14 0RF oxycodone 5 mg tablet 5 - 10 mg PO Q4H PRN (Reason: pain) 7 Days Qty: 40 0RF (DME) [place] J collar See Rx Instructions .Route .MEDSUPPLY Qty: 1 0RF Rx Instructions: As directed fluoxetine 10 mg capsule 10 mg PO BID Qty: 60 0RF Rx Instructions: Pt needs an appt for more refills lisinopril-hydrochlorothiazide 20-25 mg tablet 1 tab PO BID Qty: 120 0RF (DME) Bone Growth Stimulator See Rx Instructions .Route .MEDSUPPLY Qty: 1 0RF Rx Instructions: As directed cyclobenzaprine 10 mg tablet 10 mg PO TID PRN (Reason: muscle spasm) 30 Days Qty: 90 1RF naproxen [Naprosyn] 500 mg tablet 500 mg PO BID PRN (Reason: pain) Qty: 20 0RF acetaminophen 500 mg Tablet 1,000 mg PO BID PRN (Reason: Pain) Hold Instructions: Resume on 01/30/22. While Taking Hydrocodone hydrocodone-acetaminophen 5-325 mg Tablet 1 - 2 tab PO Q4H PRN (Reason: Moderate To Severe Pain) Qty: 40 0RF Discharge Orders: Discharge ED (Routine); Ordered 01/15/22 Ordered By: Juwan Kelley Referrals: Aniket Maher DO [Physician] - 1-3 days Lorrie Gtz [Primary Care Provider] - Discharge Diet: Advance as tolerated Discharge Activity: Resume usual activity Patient Instructions: Post Operative Pain Coding Level of Care Code ED Medication Reconciliation Technician for Ermias Fwd Exam Comprehensive
[2022-01-14 21:29] VITALS: RESP 18
[2022-01-14] MEDS: morphine 4 mg/mL SDV 1 mL IVP (21:29)
[2022-01-14] MEDS: ondansetron 2 mg/ML SDV 2 mL 4 MG IVP (21:31)
[2022-01-14] MEDS: sodium chloride 0.9% 1,000 ML 999 ML IV (21:32)
[2022-01-14 21:50] LABS: Alanine Aminotransferase < 5 U/L (0-41); Albumin Level 4.1 g/dL (3.5-5.2); Alkaline Phosphatase 120 U/L (40-130); Anion Gap 18.2 (5-19); Aspartate Amino Transferase 10 U/L (0-40); Blood Urea Nitrogen 27 mg/dL (6-20); Calcium 10.1 mg/dL (8.5-10.5); Carbon Dioxide 24 mmol/L (22-29); Chloride 94 mmol/L (98-107); Globulin 3.2 g/dL (1.3-4.6); Glomerular Filtration Rate 63.1 mL/min (90-130); Glucose 79 mg/dL (65-115); Osmolality Calculated 278 mOsm/kg (285-295); Potassium 4.2 mmol/L (3.5-5.1); Sodium 132 mmol/L (136-145); Total Bilirubin 0.3 mg/dL (0.15-1.2); Total Protein 7.3 g/dL (6.6-8.7)
[2022-01-14] MEDS: iohexol 350 mg/mL 100 mL Btl IV (21:54)
--- NOTE | 2022-01-14 21:58 | XRR_ITS ---
PROCEDURE INFORMATION: Exam: XR Chest Exam date and time: 01/14/2022 10:32 PM Age: 56 years old Clinical indication: Shortness of breath; Prior surgery; Surgery date: <1 month; Surgery type: Cervical fusion; Patient HX: SOB with dysphagia; Additional info: Pain TECHNIQUE: Imaging protocol: Radiologic exam of the chest. Views: 1 view. COMPARISON: CR Chest 1 [place] [id number] 05/04/2019 9:32 AM FINDINGS: Lungs: There is no evidence of focal pulmonary consolidation. Pleural spaces: No pleural effusion or pneumothorax. Heart/Mediastinum: Normal in size. Bones/joints: An ACDF plate is seen extending from C5 to C6 and C6 to C7. There are transpedicular screws and supporting rods for posterior fusion of the cervical spine as well. The orthopedic hardware appears in expected position in this single AP view and is incompletely visualized. XR/XR chest 1V portable [id number] IMPRESSION: 1. No acute findings. 2. Orthopedic hardware is noted for anterior and posterior fusion of the cervical spine as described above.
[2022-01-14 23:39] LABS: Add Urine Microscopic? NO; Charge for UA Resulting for Rev
[2022-01-14 23:41] VITALS: BP 113/67; PULSE 98; RESP 16; O2SAT 97
[2022-01-14 23:51] LABS: Bilirubin Urine Neg (Negative); Blood Urine Neg (Negative); Glucose Urine UA Norm (Normal); Ketones Urine 1+ (Negative); Leukocyte Esterase Urine Negative (Negative); Nitrate Urine Negative (Negative); Protein Urine Neg (Negative); Urine Appearance Clear (CLEAR); Urine Color Yellow (Yellow); Urobilinogen Urine Norm (Negative); pH Urine 7 (5-7)
[2022-01-15 00:50] VITALS: BP 106/65; PULSE 97; RESP 18; O2SAT 96
[2022-01-15] MEDS: cephALEXin 500 mg Capsule PO (01:47)
[2022-01-15 02:01] VITALS: BP 107/75; PULSE 93; RESP 18; O2SAT 98
== END 2022-01-15 02:02 | disposition home or self-care (01) ==
PROVIDERS: Emergency Provider Emergency Medicine; PCP Nurse Practitioner Family
DX: G89.18 Other acute postprocedural pain (principal); Z87.891 Personal history of nicotine dependence; I10 Essential (primary) hypertension
CPT/HCPCS: 70491; 71045; 72125; 80053; 81003; 85025; 96361; 96374; 96375; 99285; J2270; J2405; J7030; Q9967

== ENCOUNTER 2022-01-21 11:27 | Inpatient (IN) | payer OTHER, SELFPAY ==
[2022-01-21] VITALS (54 sets, daily range): BP systolic 94–145; BP diastolic 61–103; PULSE 83–98; RESP 11–33; TEMP 36.8–37.1; O2SAT 90–100; BMI 31.7
--- NOTE | 2022-01-21 11:32 | W.ED.GENADLT ---
HPI - General Adult General: Chief complaint: General Medical Stated complaint: WEAKNESS/ DEHYDRATION/ POST OP ISSUES Time Seen by Provider: 01/21/22 11:32 History of Present Illness: Mr. Moura is a 56-year-old gentleman with complex past medical history who is postoperative 01/02 from fairly complex cervical and upper thoracic spine surgery including C2-T2 spinal fusion and laminectomy/discectomies who presents to the ER for concern over weakness and poor p.o. intake. This has been ONGOING issue essentially since his procedure. He had clinic follow-up on 01/10 and return to the ER for postoperative pain on 01/14. Apparently he also went to an outside hospital on 01/17 and returns here after being seen at [facility]. Family endorses weakness and generalized inability to tolerate p.o. intake. Patient endorses this is due to nausea abdominal pain. Apparently had labs which revealed elevated lithium level. Family is concerned about associated with loss. Intensity symptoms is likely moderate. Course has persisted. No other specific changes in health, exacerbating, or alleviating factors identified. 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 Bipolar disorder Cervical spondylosis with myelopathy Charcot's joint of foot CPAP (continuous positive airway pressure) dependence Depression Erectile dysfunction Hammer toe of left foot Hypertension Obstructive sleep apnea Surgical History (Updated 01/21/22 @ 20:34 by Ramirez Peters MD) H/O lumpectomy Status post cervical spinal fusion Status post right foot surgery Family History Denies family history of Diabetes CAD (coronary artery disease) Clotting disorder Dementia Hyperlipidemia Psychiatric illness Chronic kidney disease (CKD) Suicide Anesthesia complication Bleeding disorder Family history of premature coronary artery disease Lung disease Cancer Hypertension Stroke Social History Smoking and tobacco status: former smoker (40+ years ) Second hand smoke exposure: No Smoking risk assessment/counseling performed?: No Alcohol intake: never Desire information about alcohol rehabilitation?: No Counseling given: No Desire information about substance/drug rehabilitation?: No Counseling given: No Adopted: No Caregiver/support person: No Physical Exam Const: COMMON NORMALS: alert GENERAL APPEARANCE: cooperative, well developed and ill appearing (mildly) HENMT: COMMON NORMALS: normocephalic and atraumatic HEAD & SCALP: normocephalic and atraumatic THROAT: posterior oropharynx normal OTHER: Mildly dry mucous membranes Eye: COMMON NORMALS: conjunctivae normal CONJUNCTIVA: Yes conjunctivae normal SCLERA: sclerae normal Neck/C-Spine: COMMON NORMALS: supple GENERAL: Yes trachea midline Resp: COMMON NORMALS: normal respiratory effort and clear to auscultation bilaterally EFFORT & INSPECTION: Yes able to speak in complete sentences AUSCULTATION: clear to auscultation bilaterally Cardio: COMMON NORMALS: regular rate and regular rhythm RATE: regular rate RHYTHM: regular rhythm GI: COMMON NORMALS: Soft to palpation PALPATION: Yes Soft to palpation and No Tenderness to palpation present (GI) Extremity: GENERAL: Yes normal exam except as noted and No edema Neuro: COMMON NORMALS: moves all extremities SENSORIUM/ORIENTATION: Yes alert and No Orientation impaired Psych: COMMON NORMALS: mental status grossly normal and Normal thought process present THOUGHT PROCESS: Normal thought process present Procedures Lumbar Puncture Time Out Performed: Yes Patient Position: upright Skin Prep: Povidone-Iodine 1% and 0.5% Chlorhexidine/Alcohol Local Anesthetic: lidocaine 1% and with epi Amount of anesthesia used (mL): 7 Spinal Needle Gauge: 20G Interspace Used: L3-L4 Fluid Initially Obtained: other (pink tinged) Complications: none Additional Comments: fluid progressively became clear Course ED course: - Patient was seen and evaluated by me at bedside - Patient placed on cardiac monitors, IV access obtained - Initial evaluation notable for exam as above. - Labs personally interpreted by me. EKG notable for sinus rhythm, interventricular conduction delay, no STEMI. - Fluid and antiemetic given - Labs notable for leukocytosis, normal hemoglobin. Metabolic panel with dehydration, VIOLET, supratherapeutic lithium level. Antibiotic given. - Imaging notable for negative head CT for acute intracranial process to explain mental status. CT chest abdomen and pelvis without other cause of infection or evidence of obstructive nephropathy. CT neck with enlarging postoperative fluid collection of uncertain etiology. -Discussed with orthopedic spine who can follow patient in the inpatient setting. - Upon serial reexamination after treatment the patient was mildly improved - Based on patient history, evaluation, and testing as interpreted the most likely cause of the patient's condition is dehydration with VIOLET and supratherapeutic lithium level likely explaining symptoms. Postoperative fluid collection appears larger of uncertain etiology. - The results of ED evaluation were discussed with the patient including plan for admission due to requirement for level of care not available if discharged to prevent significant worsening/deterioration. - Admitting service was contacted and Dr Peters with hospitalist service agreed to admit the patient - Patient was admitted without further deterioration or significant events. Note: Click bubbles or prepopulated park in note writing are used for assistance with data collection and billing and are inherently more limited than narrative and other text portions of this note. Please use narrative for additional clinical history and defer to narrative/free test for any case of contradictory information. If information appears in only free text or click bubble it should be considered present or absent as reported. Please contact note automobile and property underwriter for clarifications of clinical information or contradictory information. MDM is a brief summary, contradictory or erroneous seeming information should be clarified and full note should be reviewed. Vital Signs: Vital signs: Vital Signs Temperature 98.3 F 01/28/22 15:40 Pulse Rate 81 01/28/22 15:40 Respiratory Rate 15 01/28/22 15:40 Blood Pressure 152/97 01/28/22 15:40 Pulse Oximetry 97 01/28/22 15:40 Oxygen Delivery Me thod 01/28/22 12:00 Oxygen Flow Rate 2 01/26/22 08:00 MDM - General Adult Medical Decision Making 56-year-old gentleman with history of spine surgery presenting with generalized worsening. Patient found to have VIOLET and supratherapeutic lithium level. Admitted for further management with spine consult. Medical Records I reviewed the patient's medical records. Lab Data I reviewed the patient's lab results. : 01/27/22 04:12 01/27/22 04:12 Radiology Impressions Chest/Abdomen/Pelvis CT 01/21/22 12:49 IMPRESSION: 1. No acute findings in the chest abdomen or pelvis. 2. Partially visualized postoperative findings in the lower cervical and upper thoracic dorsal soft tissues. Head CT 01/21/22 12:49 IMPRESSION: 1. No evidence of intracranial hemorrhage or mass effect. 2. Normal manzanares-white differentiation. 3. Retention cyst LEFT maxillary sinus measuring 1.5x1.9 cm. 4. No acute intracranial findings. Neck CT 01/21/22 14:14 IMPRESSION: 1. Comparison CT 01/14/2022. Multilevel posterior and anterior surgical fusion hardware with midline posterior fluid collection, presumably postop as described above. The superior aspect of midline posterior fluid collection is relatively stable however the inferior component of fluid collection has significantly increased in size as described. Multilevel endplate irregularity is also noted and stable. Please refer to discussion above as active infectious process would be difficult to exclude in this setting. 2. Probable minimal symmetric pharyngeal soft tissue thickening and may be related to nonspecific edema or minimal pharyngitis, unchanged. No discrete tonsillar abscess or other soft tissue neck mass. No other obvious signs of acute collection or acute infectious process in the deep soft tissue neck spaces. 3. Sinus findings as above. Cervical Spine MRI 01/22/22 08:07 IMPRESSION: 1. Extensive postsurgical changes including C3-C5 decompressive laminectomies with, with anterior mechanical fusion of C4-6, and posterior mechanical fusion of C4-T2. 2. Large fluid collection in the C3-5 decompressive laminectomy defect and extending into the posterior soft tissues. This measures 5.1 x 4.7 x 15.5 cm and is suspicious for postoperative abscess. This fluid collection extends inferiorly into the upper thoracic soft tissues, beyond the images provided. 3. With mass effect from the with posterior fluid collection creates moderate central canal stenosis at C3-C4 and severe central canal stenosis at C4-C5. Modified Barium Swallow 01/22/22 21:47 IMPRESSION: 1. No significant aspiration or laryngeal penetration identified. 2. No significant swallowing deficit. Please see speech therapist report also for recommendations. Cervical Spine X-Ray 01/23/22 00:00 Impression: Adjustment of cervical fusion hardware. Laboratory Results WBC 20.0 10^3/uL (4.0-10.0) H 01/21/22 11:37 RBC 4.25 10^6/uL (4.1-5.3) 01/21/22 11:37 Hgb 12.5 g/dL (11.7-16.6) 01/21/22 11:37 Hct 38.3 % (42.0-52.0) L 01/21/22 11:37 MCV 90.1 fl (80-94) 01/21/22 11:37 MCH 29.4 pg (28.0-34.0) 01/21/22 11:37 MCHC 32.6 g/dL (30.0-36.0) 01/21/22 11:37 RDW 12.5 % (12.1-15.1) 01/21/22 11:37 Plt Count 439 10^3/cmm (130-400) H 01/21/22 11:37 MPV 11.6 fL (7.4-10.4) H 01/21/22 11:37 Neut % (Auto) 82.7 % 01/21/22 11:37 Lymph % (Auto) 7.1 % 01/21/22 11:37 Drew % (Auto) 7.6 % 01/21/22 11:37 Eos % (Auto) 0.9 % 01/21/22 11:37 Baso % (Auto) 0.5 % 01/21/22 11:37 Neut # (Auto) 16.55 10^3/uL (1.8-7.7) H 01/21/22 11:37 Lymph # (Auto) 1.4 10^3/uL (0.8-4.8) 01/21/22 11:37 Drew # (Auto) 1.5 10^3/uL (0.2-0.9) H 01/21/22 11:37 Eos # (Auto) 0.2 10^3/uL (0.0-0.8) 01/21/22 11:37 Baso # (Auto) 0.1 10^3/uL (0.0-0.1) 01/21/22 11:37 Nucleated RBC % (auto) 0 % 01/21/22 11:37 Nucleated RBCs # 0.0 /100WBC 01/21/22 11:37 Sodium 133 mmol/L (136-145) L 01/21/22 11:37 Potassium 3.7 mmol/L (3.5-5.1) 01/21/22 11:37 Chloride 96 mmol/L (98-107) L 01/21/22 11:37 Carbon Dioxide 24 mmol/L (22-29) 01/21/22 11:37 Anion Gap 16.7 (5-19) 01/21/22 11:37 BUN 28 mg/dL (6-20) H 01/21/22 11:37 Creatinine 2.0 mg/dL (0.7-1.2) H 01/21/22 11:37 GFR Calculation 35.0 mL/min (90-130) L 01/21/22 11:37 Glucose 93 mg/dL (65-115) 01/21/22 11:37 Calculated Osmolality 281 mOsm/kg (285-295) L 01/21/22 11:37 Lactic Acid 1.3 mmol/L (0.5-2.2) 01/21/22 12:24 Calcium 10.2 mg/dL (8.5-10.5) 01/21/22 11:37 Iron 33 ug/dL (59-158) L 01/21/22 11:37 TIBC 197 mcg/dl 01/21/22 11:37 % Saturation 16.7 % (20-50) L 01/21/22 11:37 Unsat Iron Binding 164 ug/dL (112-347) 01/21/22 11:37 Total Bilirubin 0.4 mg/dL (0.15-1.2) 01/21/22 11:37 AST 6 U/L (0-40) 01/21/22 11:37 ALT 7 U/L (0-41) 01/21/22 11:37 Alkaline Phosphatase 250 U/L (40-130) H 01/21/22 11:37 C-Reactive Protein 24.3 mg/L (0.0-4.9) H 01/21/22 11:37 Total Protein 7.2 g/dL (6.6-8.7) 01/21/22 11:37 Albumin 4.1 g/dL (3.5-5.2) 01/21/22 11:37 Globulin 3.1 g/dL (1.3-4.6) 01/21/22 11:37 Vitamin B12 1652 pg/mL (232-1245) H 01/21/22 11:37 Folate 5.7 ng/mL (4.5-32.2) 01/21/22 11:37 Procalcitonin 0.12 ng/mL (0-0.5) 01/21/22 11:37 TSH 1.52 uIU/mL (0.27-4.20) 01/21/22 11:37 Urine Color Dark yellow (Yellow) 01/21/22 14:40 Urine Appearance Clear (CLEAR) 01/21/22 14:40 Urine pH 6 (5-7) 01/21/22 14:40 Ur Specific [place] 1.015 (1.005-1.030) 01/21/22 14:40 Urine Protein Trace (Negative) 01/21/22 14:40 Urine Glucose (UA) Norm (Normal) 01/21/22 14:40 Urine Ketones 2+ (Negative) H 01/21/22 14:40 Urine Blood Neg (Negative) 01/21/22 14:40 Urine Nitrate Negative (Negative) 01/21/22 14:40 Urine Bilirubin 1+ (Negative) H 01/21/22 14:40 Urine Urobilinogen Norm mg/dL (Negative) 01/21/22 14:40 Ur Leukocyte Esterase Negative (Negative) 01/21/22 14:40 Urine RBC None /hpf (0-2) 01/21/22 14:40 Urine WBC 5-10 /hpf (0-5) H 01/21/22 14:40 Ur Squamous Epith Cells 0-4 /hpf (0-5) H 01/21/22 14:40 Amorphous Sediment Not Reportable 01/21/22 14:40 Urine Bacteria Trace /hpf (NONE) 01/21/22 14:40 Hyaline Casts 10-15 /lpf H 01/21/22 14:40 Urine Mucus Trace /hpf 01/21/22 14:40 CSF Appearance Clear (CLEAR) 01/21/22 19:20 CSF Color Colorless (COLORLESS) 01/21/22 19:20 CSF Specific [place] 1.010 01/21/22 19:20 CSF WBC 6 /uL (0-5) H 01/21/22 19:20 CSF RBC 0 10^3/uL (0-0) 01/21/22 19:20 CSF Mononuclear # Auto 0.003 10^3/uL (50-90) L 01/21/22 19:20 CSF Mononuclear WBCs % 50 % (50-90) 01/21/22 19:20 CSF Polynuclear WBCs # 0.003 10^3/uL (0-10) 01/21/22 19:20 CSF Polynuclear WBCs % 50 % (0-10) H 01/21/22 19:20 CSF Diff Comment Yes 01/21/22 19:20 CSF Glucose 68 mg/dL (40-70) 01/21/22 19:20 CSF Total Protein 119 mg/dL (15-45) H 01/21/22 19:20 Nasal Influ A H1 2009 PCR Not detected (NOT DETECT) 01/21/22 15:08 RSV Nasal Swab Cancelled 01/21/22 11:37 RSV Nasal Swab Int Cntl Cancelled 01/21/22 11:37 [place] 2.6 mmol/L (0.6-1.2) H* 01/21/22 11:37 Adenovirus (PCR) Not detected (NOT DETECT) 01/21/22 15:08 C. pneumoniae DNA (PCR) Not detected (NOT DETECT) 01/21/22 15:08 Coronavirus 229E (PCR) Not detected (NOT DETECT) 01/21/22 15:08 Human Metapneumovir PCR Not detected (NOT DETECT) 01/21/22 15:08 Influenza A (RT-PCR) Cancelled 01/21/22 11:37 Influenza A (H1) PCR Not detected (NOT DETECT) 01/21/22 15:08 Influenza A (H3) PCR Not detected (NOT DETECT) 01/21/22 15:08 Influenza Type A (PCR) Not detected (NOT DETECT) 01/21/22 15:08 Influenza B (RT-PCR) Cancelled 01/21/22 11:37 Influenza Type B (PCR) Not detected (NOT DETECT) 01/21/22 15:08 M. pneumoniae (PCR) Not detected (NOT DETECT) 01/21/22 15:08 Parainfluenzae Type 1 Cancelled 01/21/22 11:37 Parainfluenza 1 (PCR) Not detected (NOT DETECT) 01/21/22 15:08 Parainfluenzae Type 2 Cancelled 01/21/22 11:37 Parainfluenza 2 (PCR) Not detected (NOT DETECT) 01/21/22 15:08 Parainfluenzae Type 3 Cancelled 01/21/22 11:37 Parainfluenza 3 (PCR) Not detected (NOT DETECT) 01/21/22 15:08 Parainfluenza 4 (PCR) Not detected (NOT DETECT) 01/21/22 15:08 RSV Ab Comment Cancelled 01/21/22 11:37 RSV Type A (PCR) Not detected (NOT DETECT) 01/21/22 15:08 RSV Type B (PCR) Not detected (NOT DETECT) 01/21/22 15:08 Rhinovirus (PCR) Cancelled 01/21/22 11:37 Entero/Rhino (PCR) Not detected (NOT DETECT) 01/21/22 15:08 SARS-CoV-2 (PCR) Not detected (NOT DETECT) 01/21/22 15:08 Critical Care Time Critical Care Time: Critical Care Time: Yes Total Critical Care Time: 45 Attestation: Due to a high probability of clinically significant, possibly life threatening deterioration, the patient required my highest level of attention and preparedness to intervene emergently and I personally spent this critical care time directly and personally managing the patient. This critical care time included obtaining a history; examining the patient; pulse oximetry; ordering and review of laboratory and imaging studies; arranging urgent treatment with development of a management plan; evaluation of patient's response to treatment; frequent reassessment; and, discussions with other providers as applicable. It was exclusive of separately billable procedures. Primary system involved is toxic/metabolic Discharge Plan Discharge Patient Disposition: Admitted As Inpatient Admit Provider: Ramirez Peters Clinical Impression: Dehydration, Leukocytosis, VIOLET (acute kidney injury), Elevated lithium level, Post-operative state Condition: Stable Discharge Diet: Regular Discharge Activity: Resume usual activity and Increase activity as tolerated Coding Level of Care Code ED Maintenance And Custodian Supervisor for Ermias Fwd Exam Comprehensive
[2022-01-21 12:18] LABS: Basophils # 0.1 10^3/uL (0.0-0.1); Basophils % 0.5 %; Eosinophils # 0.2 10^3/uL (0.0-0.8); Eosinophils % 0.9 %; Hematocrit 38.3 % (42.0-52.0); Hemoglobin 12.5 g/dL (11.7-16.6); Lymphocytes # 1.4 10^3/uL (0.8-4.8); Lymphocytes % 7.1 %; Mean Corpuscular HGB Conc 32.6 g/dL (30.0-36.0); Mean Corpuscular Hemoglobin 29.4 pg (28.0-34.0); Mean Corpuscular Volume 90.1 fl (80-94); Mean Platelet Volume 11.6 fL (7.4-10.4); Monocytes # 1.5 10^3/uL (0.2-0.9); Monocytes % 7.6 %; Neutrophils # 16.55 10^3/uL (1.8-7.7); Neutrophils % 82.7 %; Nucleated Red Blood Cells % 0 %; Platelet Count 439 10^3/cmm (130-400); Red Blood Count 4.25 10^6/uL (4.1-5.3); Red Cell Distribution Width 12.5 % (12.1-15.1)
[2022-01-21] MEDS: ondansetron 2 mg/ML SDV 2 mL 4 MG IVP (12:34)
--- NOTE | 2022-01-21 12:49 | CT_ITS ---
WS: [id number] CT HEAD TECHNIQUE: Noncontrast CT of the head obtained from the skullbase to the vertex. CLINICAL INFORMATION: confusion COMPARISON: None. DLP: 1300.[address] scans at [facility] use at least one of these dose optimization techniques: automated e xposure control; mA and/or kV adjustment per patient size (includes targeted exams where dose is matc hed to clinical indication); or iterative reconstruction. FINDINGS: No evidence of intracranial hemorrhage or mass effect. Ventricular system and basal cisterns are roque nt. No extra-axial fluid collections. No evidence of mass or mass effect. Normal manzanares-white different iation. Retention cyst LEFT maxillary sinus measuring 1.9 x 1.5 CM. Mild mucosal thickening in the ethmoid ai r cells. Mastoid air cells are well aerated. CT/CT head wo con* [id number] IMPRESSION: 1. No evidence of intracranial hemorrhage or mass effect. 2. Normal manzanares-white differentiation. 3. Retention cyst LEFT maxillary sinus measuring 1.5x1.9 cm. 4. No acute intracranial findings.
--- NOTE | 2022-01-21 12:49 | CT_ITS ---
WS: [id number] CT CHEST, ABDOMEN, AND PELVIS TECHNIQUE: Noncontrast CT of the chest, abdomen, and pelvis with coronal and sagittal reformatted maxx ges. CLINICAL INFORMATION: SIRS, generalized illness, unable to walk/tolerate PO, AMS COMPARISON: None. DLP: 1592.[address] scans at [facility] use at least one of these dose optimization techniques: automated e xposure control; mA and/or kV adjustment per patient size (includes targeted exams where dose is matc hed to clinical indication); or iterative reconstruction. CT CHEST: Both lungs are well aerated. No acute pulmonary infiltrates. No focal pneumonia or pleural fluid. No axillary lymphadenopathy. No mediastinal or hilar lymphadenopathy. Mild thoracic kyphosis with spo ndylitic changes thoracic spine. Postoperative changes partially visualized in the cervical spine with dorsal decompression. Similar-a ppearing fluid collection in the dorsal neck soft tissues. CT ABDOMEN AND PELVIS: Noncontrast liver appears normal. Normal GE junction. Adrenal glands are normal. No hydronephrosis in either kidney. Normal noncontrast spleen. Small renal cysts. Increased attenuation small RIGHT renal lesion likely hemorrhagic cyst measuring 8 mm. Normal caliber abdominal aorta. Mild aortic calcifica tion. No free fluid in the abdomen or pelvis. No evidence of high-grade small or large bowel obstruction. T iny fat-containing umbilical hernia. Bone island LEFT sacral [place]. [place] [id number] IMPRESSION: 1. No acute findings in the chest abdomen or pelvis. 2. Partially visualized postoperative findings in the lower cervical and upper thoracic dorsal soft tissues.
[2022-01-21 12:56] LABS: Lithium 2.6 mmol/L (0.6-1.2)
[2022-01-21 12:57] LABS: Alanine Aminotransferase 7 U/L (0-41); Albumin Level 4.1 g/dL (3.5-5.2); Alkaline Phosphatase 250 U/L (40-130); Anion Gap 16.7 (5-19); Aspartate Amino Transferase 6 U/L (0-40); Blood Urea Nitrogen 28 mg/dL (6-20); Calcium 10.2 mg/dL (8.5-10.5); Carbon Dioxide 24 mmol/L (22-29); Chloride 96 mmol/L (98-107); Globulin 3.1 g/dL (1.3-4.6); Glucose 93 mg/dL (65-115); Osmolality Calculated 281 mOsm/kg (285-295); Potassium 3.7 mmol/L (3.5-5.1); Sodium 133 mmol/L (136-145); Total Bilirubin 0.4 mg/dL (0.15-1.2); Total Protein 7.2 g/dL (6.6-8.7)
[2022-01-21 13:01] LABS: Lactic Sepsis W/Reflex 1.3 mmol/L (0.5-2.2)
--- NOTE | 2022-01-21 14:14 | CTR_ITS ---
PROCEDURE INFORMATION: Exam: CT Neck With Contrast Exam date and time: 01/21/2022 3:31 PM Age: 56 years old Clinical indication: Abnormal findings; Other abnormal lab; Worsening leukocytosis; Prior surgery; Surgery type: Neck; Additional info: Post op worsening leukocytosis, generalized illness TECHNIQUE: Imaging protocol: Computed tomography of the neck with contrast. Radiation optimization: All CT scans at this facility use at least one of these dose optimization techniques: automated exposure control; mA and/or kV adjustment per patient size (includes targeted exams where dose is matched to clinical indication); or iterative reconstruction. Contrast material: OMNI 350; Contrast volume: 80 ml; Contrast route: INTRAVENOUS (IV); COMPARISON: CT neck w con* [id number] 01/14/2022 9:58 PM RADIATION DOSE METRICS: Total DLP (mGy-cm): 360.72 FINDINGS: Paranasal sinuses: Left maxillary sinus mucous retention cyst measuring 2.1 cm mid to previous exam. Minimal maxillary sinus mucosal thickening is also present. Pharynx: Again seen is minimal symmetric romero pharyngeal soft tissue prominence similar to prior exam with no discrete regional tonsillar abscess or obvious mass. This may be related to nonspecific edema or pharyngitis, unchanged. No significant regional airway narrowing. Larynx: Unremarkable. Epiglottis is normal. Prevertebral and retropharyngeal spaces: Unremarkable. Salivary glands: See Soft tissues finding. Thyroid: Normal. No enlarged or calcified nodules. Lymph nodes: Unremarkable. No lymphadenopathy. Trachea: See Pharynx finding. Lungs: Unremarkable as visualized. Bones/joints: Multilevel endplate/uncovertebral osteophytes and facet arthropathy are noted. No acute spine fracture or subluxation. Evidence of prior posterior cervical fusion hardware from C2-C3 through T2. Laminectomy changes from C3 through C5. Probable osteopenia. Anterior surgical fusion hardware with interval disc spacers from C4 through C6. Stable C3-C4 retrolisthesis and C4-C5 spondylolisthesis. Multilevel endplate irregularities are again noted which are similar to prior exam and presumably related to discogenic degenerative disc disease. However if there is a concern for discitis or surgical hardware infection, clinical correlation and continued assessment should be obtained. Ill-defined posterior midline soft tissue irregular fluid collection at the laminectomy site is again noted. The margin is somewhat obscured by artifact but is estimated to be approximately 3.9 x 5.2 cm cross-section versus 3.5 by 5 cm previously at the upper cervical level, measured at C3 level. However the midline posterior fluid collection at the surgical site has increased in size in the mid/lower cervical region measuring about 6.1 x 4.7 cm versus 4.6 by 1.2 cm on the current exam versus, measured at the level of C5-C6, axial series 5, image 73. Few tiny foci of soft tissue air are again noted similar to prior exam. Assessment of the intraspinal structures is limited due to streak artifacts. Soft tissues: There is minimal edema and trace amount of fluid along the anterior lateral superior margin of the left sternocleidomastoid and left parotid gland similar to prior exam and nonspecific. No regional soft tissue gas or loculated collection with enhancing rim to suggest a drainable abscess. CT/CT neck w con* [id number] IMPRESSION: 1. Comparison CT 01/14/2022. Multilevel posterior and anterior surgical fusion hardware with midline posterior fluid collection, presumably postop as described above. The superior aspect of midline posterior fluid collection is relatively stable however the inferior component of fluid collection has significantly increased in size as described. Multilevel endplate irregularity is also noted and stable. Please refer to discussion above as active infectious process would be difficult to exclude in this setting. 2. Probable minimal symmetric pharyngeal soft tissue thickening and may be related to nonspecific edema or minimal pharyngitis, unchanged. No discrete tonsillar abscess or other soft tissue neck mass. No other obvious signs of acute collection or acute infectious process in the deep soft tissue neck spaces. 3. Sinus findings as above.
--- NOTE | 2022-01-21 14:15 | ECG_ITS ---
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 Measurements Intervals [place] Rate: 88 P: 56 [place]: 160 QRS: 46 QRSD: 117 T: 57 QT: 405 QTc: 491 Interpretive Statements SINUS RHYTHM POSSIBLE RIGHT VENTRICULAR CONDUCTION DELAY [RSR (QR) IN V1/V2] NONSPECIFIC T-WAVE ABNORMALITY No previous ECG available for comparison Electronically Signed On 01-22-2022 7:31:50 CDT by Jyoti Tim M.D. [id number]
[2022-01-21 15:19] LABS: Add Urine Microscopic? YES; Bacteria Urine TRACE /hpf; Bilirubin Urine 1+ (Negative); Blood Urine Neg (Negative); Glucose Urine UA Norm (Normal); Ketones Urine 2+ (Negative); Leukocyte Esterase Urine Negative (Negative); Mucus Urine TRACE /hpf; Nitrate Urine Negative (Negative); Protein Urine Trace (Negative); Specific Gravity, Urine 1.015 (1.005-1.030); Squamous Epithelial Cell Urine 0-4 /hpf (0-5); Urine Appearance Clear (CLEAR); Urine Color Dark Yellow (Yellow); Urobilinogen Urine Norm (Negative); pH Urine 6 (5-7)
[2022-01-21 15:20] LABS: Add Urine Culture? No
[2022-01-21] MEDS: iohexol 350 mg/mL 100 mL Btl IV (15:34)
[2022-01-21] MEDS: sodium chloride 0.9% 1,000 ML 999 ML IV (16:36)
[2022-01-21 17:02] LABS: Adenovirus Not Detected (NOT DETECT); Chlamydia Pneumoniae Not Detected (NOT DETECT); Coronavirus 229E,HKU1,NL63,OC4 Not Detected (NOT DETECT); Human Metapneumovirus Not Detected (NOT DETECT); Human Rhinovirus/Enterovirus Not Detected (NOT DETECT); Influenza A Not Detected (NOT DETECT); Influenza A H1 Not Detected (NOT DETECT); Influenza A H1-2009 Not Detected (NOT DETECT); Influenza A H3 Not Detected (NOT DETECT); Influenza B Not Detected (NOT DETECT); Mycoplasma Pneumoniae Not Detected (NOT DETECT); Parainfluenza Virus Type 1 Not Detected (NOT DETECT); Parainfluenza Virus Type 2 Not Detected (NOT DETECT); Parainfluenza Virus Type 3 Not Detected (NOT DETECT); Parainfluenza Virus Type 4 Not Detected (NOT DETECT); Respiratory Syncytial Virus A Not Detected (NOT DETECT); Respiratory Syncytial Virus B Not Detected (NOT DETECT); SARS-COV-2 Not Detected (NOT DETECT)
--- NOTE | 2022-01-21 18:09 | PM.HP ---
Providers/Chief Complaint Admitting Physician: Ramirez Peters MD Primary Care Provider: Lorrie Gtz Chief Complaint: WEAKNESS/ DEHYDRATION/ POST OP ISSUES History of Present Illness Fidel Moura is a 56 year old with past medical history of hypertension, depression and bipolar disorder, was admitted for the management of ?spondylolisthesis at C4-5 s/p anterior and posterior cervical fusion on 01/02, discharged on 01/04 presented to the ER today because he has been feeling weak, generalized myalgias, poor oral intake because of nausea and difficulty in swallowing since his OR for last 17 to 18 days getting worse for last 1 week. Patient has subjective fever but denies of checking temperature at home. Patient is on lithium for bipolar disease which he states last he took was probably on 01/14 for on 01/16. Review of Systems General: Reports: 10 or more systems reviewed and unremarkable except in HPI and below Const: Denies: fever(s), chills, body aches, change in appetite, change in weight, malaise, night sweats, diaphoresis, change in sleep pattern, daytime sleepiness or snoring Eyes: Denies: change in vision, blurry vision, photophobia, eye discomfort or eye discharge ENMT: Denies: throat pain, enlarged tonsils, hoarseness, mouth pain, oral sores, dry mouth, tinnitus, nasal congestion or post nasal drip Card: Denies: chest pain, palpitations, irregular heart rhythm, edema, swelling of feet/ankles, lightheadedness, syncope, pre-syncope, dyspnea on exertion, orthopnea, leg pain with exertion or acrocyanosis Resp: Denies: dyspnea, productive cough, non-productive cough, wheezing, stridor, pain on inspiration, change in phlegm color, hemoptysis or chest congestion GI: Denies: abdominal pain, nausea, vomiting, hematemesis, coffee ground emesis, dysphagia, heartburn, diarrhea, constipation, bloating, GI cramping, change in bowel habits, pain on defecation, hematochezia or melena : Denies: flank pain, difficulty urinating, dysuria, urinary frequency, urinary urgency, urinary hesitancy, urinary dribbling, difficulty starting urination, change in urine stream, nocturia or hematuria Musc: Denies: neck pain, back pain, extremity pain, joint pain, joint swelling, joint redness, joint stiffness or limited range of motion Neuro: Denies: headache(s), numbness in extremities, weakness in extremities, sensory changes, lack of coordination, difficulty walking, frequent falls, dizziness, vertigo, confusion, Slurred speech present, difficulty communicating thoughts or seizure-like activity Psych: Denies: anxiety, depression, mood swings, panic attacks, hopelessness or irritability Endo: Denies: polyuria, polydipsia, tired all the time, cold intolerance, excessive sweating, flushing or heat intolerance Dandy/Lymph: Denies: easy bruising or easy bleeding All/Imm: Denies: tongue swelling, facial swelling or acute wheezing Medications/Allergies Home Medications Medication Instructions Recorded Confirmed Last Taken Type Custom Foot Orthotics Bilaterally #1 ea 12/12/20 01/21/22 Unknown Rx Night splint #1 ea 01/02/21 01/21/22 Unknown Rx [place] J collar #1 ea 10/23/21 01/21/22 Unknown Rx Bone Growth Stimulator #1 ea 01/02/22 01/21/22 Unknown Rx acetaminophen 500 mg tablet 1,000 mg PO BID PRN Pain 01/03/22 01/21/22 Unknown History cyclobenzaprine 10 mg tablet 10 mg PO TID PRN muscle spasm 1 01/07/22 01/21/22 Unknown Rx month #90 tabs cephalexin 500 mg capsule 500 mg PO TID 7 days #21 caps 01/15/22 01/21/22 01/21/22 Rx ondansetron HCl 8 mg tablet 8 mg PO Q8H PRN nausea and 01/17/22 01/21/22 Unknown Rx vomiting #30 tabs fluoxetine 10 mg capsule 30 mg PO DAILY 01/21/22 01/21/22 01/21/22 History lisinopril 20 1 tab PO DAILY 01/21/22 01/21/22 01/21/22 History mg-hydrochlorothiazide 25 mg tablet Allergies Allergy/AdvReac Type Severity Reaction Status Date / Time No Known Allergies Allergy Verified 01/21/22 14:15 PFSH Acute PFSH: Medical History (Updated 01/21/22 @ 20:34 by Ramirez Peters MD) 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 Bipolar disorder Charcot's joint of foot Depression Erectile dysfunction Hammer toe of left foot Hypertension Surgical History (Updated 01/21/22 @ 20:34 by Ramirez Peters MD) H/O lumpectomy Status post cervical spinal fusion Status post right foot surgery Family History Denies family history of Diabetes CAD (coronary artery disease) Clotting disorder Dementia Hyperlipidemia Psychiatric illness Chronic kidney disease (CKD) Suicide Anesthesia complication Bleeding disorder Family history of premature coronary artery disease Lung disease Cancer Hypertension Stroke Social History Smoking and tobacco status: former smoker (40+ years ) Second hand smoke exposure: No Smoking risk assessment/counseling performed?: No Alcohol intake: never Desire information about alcohol rehabilitation?: No Counseling given: No Desire information about substance/drug rehabilitation?: No Counseling given: No Adopted: No Caregiver/support person: No Vitals/I&O/Wt Last Vital Signs Temp 98.2 F 01/21/22 11:46 Pulse 90 01/21/22 16:14 Resp 18 01/21/22 11:30 BP 141/82 01/21/22 16:14 Pulse Ox 97 01/21/22 16:14 O2 Del Method 01/21/22 16:14 Weight last 48 hrs Weight 115.212 kg Physical Exam Narrative: EXAM NARRATIVE: General: No acute distress, AO x3, sick appearing HEENT: PERRLA, pupils bilaterally equal and reactive Chest: Bilateral normal vesicular breath sounds, good equal air entry CVS: S1-S2 regular, no murmurs, no tachycardia, no gallops, no rubs Abdomen: Soft, nontender mildly distended, no organomegaly, bowel sounds present, morbidly obese Neuro: No focal deficits, no facial deformity, AO x3, power 5/5 in all limbs Urinary Catheter Management: Coude: Cath Placed During This Visit: yes Urinary Catheter Date of Insertion: 01/21/22 Urinary Catheter Time of Insertion: 17:05 Data : 01/22/22 04:02 01/22/22 04:02 Other Labs: Abnormal lab results 01/21/22 01/21/22 01/21/22 Range/Units 11:37 11:37 11:37 WBC 20.0 H (4.0-10.0) 10^3/uL RBC (4.1-5.3) 10^6/uL Hgb (11.7-16.6) g/dL Hct 38.3 L (42.0-52.0) % Plt Count 439 H (130-400) 10^3/cmm MPV 11.6 H (7.4-10.4) fL Neut # (Auto) 16.55 H (1.8-7.7) 10^3/uL [place] # (Auto) 1.5 H (0.2-0.9) 10^3/uL ABG pCO2 (35-45) mmHg ABG HCO3 (22-26) mmol/L ABG Base Excess (-2.0-2.0) mmol/L A-a O2 Gradient (5-10) mmHg Hematocrit (42-52) % Total Hemoglobin (14-18) g/dL Potassium (3.5-5.0) mmol/L Glucose (70-115) mg/dL Sodium 133 L (136-145) mmol/L Chloride 96 L (98-107) mmol/L Carbon Dioxide (22-29) mmol/L BUN 28 H (6-20) mg/dL Creatinine 2.0 H (0.7-1.2) mg/dL GFR Calculation 35.0 L (90-130) mL/min Calculated Osmolality 281 L (285-295) mOsm/kg Iron (59-158) ug/dL % Saturation (20-50) % Alkaline Phosphatase 250 H (40-130) U/L C-Reactive Protein (0.0-4.9) mg/L HDL Cholesterol (60-100) mg/dL Vitamin B12 (232-1245) pg/mL Urine Ketones (Negative) Urine Blood (Negative) Urine Bilirubin (Negative) Urine WBC (0-5) /hpf Ur Squamous Epith Cells (0-5) /hpf Hyaline Casts /lpf CSF WBC (0-5) /uL CSF Mononuclear # Auto (50-90) 10^3/uL CSF Polynuclear WBCs % (0-10) % CSF Total Protein (15-45) mg/dL [place] 2.6 H* (0.6-1.2) mmol/L 01/21/22 01/21/22 01/21/22 Range/Units 11:37 11:37 14:40 WBC (4.0-10.0) 10^3/uL RBC (4.1-5.3) 10^6/uL Hgb (11.7-16.6) g/dL Hct (42.0-52.0) % Plt Count (130-400) 10^3/cmm MPV (7.4-10.4) fL Neut # (Auto) (1.8-7.7) 10^3/uL [place] # (Auto) (0.2-0.9) 10^3/uL ABG pCO2 (35-45) mmHg ABG HCO3 (22-26) mmol/L ABG Base Excess (-2.0-2.0) mmol/L A-a O2 Gradient (5-10) mmHg Hematocrit (42-52) % Total Hemoglobin (14-18) g/dL Potassium (3.5-5.0) mmol/L Glucose (70-115) mg/dL Sodium (136-145) mmol/L Chloride (98-107) mmol/L Carbon Dioxide (22-29) mmol/L BUN (6-20) mg/dL Creatinine (0.7-1.2) mg/dL GFR Calculation (90-130) mL/min Calculated Osmolality (285-295) mOsm/kg Iron 33 L (59-158) ug/dL % Saturation 16.7 L (20-50) % Alkaline Phosphatase (40-130) U/L C-Reactive Protein 24.3 H (0.0-4.9) mg/L HDL Cholesterol (60-100) mg/dL Vitamin B12 1652 H (232-1245) pg/mL Urine Ketones 2+ H (Negative) Urine Blood (Negative) Urine Bilirubin 1+ H (Negative) Urine WBC 5-10 H (0-5) /hpf Ur Squamous Epith Cells 0-4 H (0-5) /hpf Hyaline Casts 10-15 H /lpf CSF WBC (0-5) /uL CSF Mononuclear # Auto (50-90) 10^3/uL CSF Polynuclear WBCs % (0-10) % CSF Total Protein (15-45) mg/dL [place] (0.6-1.2) mmol/L 01/21/22 01/21/22 01/21/22 Range/Units 19:20 19:20 20:40 WBC (4.0-10.0) 10^3/uL RBC (4.1-5.3) 10^6/uL Hgb (11.7-16.6) g/dL Hct (42.0-52.0) % Plt Count (130-400) 10^3/cmm MPV (7.4-10.4) fL Neut # (Auto) (1.8-7.7) 10^3/uL [place] # (Auto) (0.2-0.9) 10^3/uL ABG pCO2 (35-45) mmHg ABG HCO3 (22-26) mmol/L ABG Base Excess (-2.0-2.0) mmol/L A-a O2 Gradient (5-10) mmHg Hematocrit (42-52) % Total Hemoglobin (14-18) g/dL Potassium (3.5-5.0) mmol/L Glucose (70-115) mg/dL Sodium (136-145) mmol/L Chloride (98-107) mmol/L Carbon Dioxide (22-29) mmol/L BUN (6-20) mg/dL Creatinine (0.7-1.2) mg/dL GFR Calculation (90-130) mL/min Calculated Osmolality (285-295) mOsm/kg Iron (59-158) ug/dL % Saturation (20-50) % Alkaline Phosphatase (40-130) U/L C-Reactive Protein (0.0-4.9) mg/L HDL Cholesterol (60-100) mg/dL Vitamin B12 (232-1245) pg/mL Urine Ketones 1+ H (Negative) Urine Blood 3+ H (Negative) Urine Bilirubin (Negative) Urine WBC (0-5) /hpf Ur Squamous Epith Cells (0-5) /hpf Hyaline Casts /lpf CSF WBC 6 H (0-5) /uL CSF Mononuclear # Auto 0.003 L (50-90) 10^3/uL CSF Polynuclear WBCs % 50 H (0-10) % CSF Total Protein 119 H (15-45) mg/dL [place] (0.6-1.2) mmol/L Micro: Microbiology 01/21/22 12:24 Blood Culture - Preliminary Blood SPECIMEN COLLECTED 01/21/22 12:20 Blood Culture - Preliminary Blood SPECIMEN COLLECTED A&P Assessment and plan (1) Status post cervical spinal fusion: Status: Acute (2) VIOLET (acute kidney injury): Status: Acute (3) [place] intoxication: Status: Acute (4) Leukocytosis: Status: Acute (5) Dehydration: Status: Acute (6) Nausea: Status: Acute (7) Difficulty in swallowing: Status: Acute (8) Cervical spondylosis with myelopathy: Status: Acute Plan 52 gentleman with recent history of cervical fusion within the last 3 weeks presents with poor oral intake, generalized weakness and myalgias found to be in VIOLET along with leukocytosis. Acute kidney injury: Most likely secondary to poor oral intake home dose of lisinopril and hydrochlorothiazide. Cannot rule out sepsis. Medical reconciliation done for nephrotoxic drugs. Roy catheterization. Normal saline at 75 cc/h. Check urinalysis, urine creatinine, urine eosinophils. CT abdomen pelvis negative for obstructive nephropathy. Continue to monitor daily. Leukocytosis: Could be secondary to dehydration and reactionary from recent surgery but cannot rule out sepsis given collection found on CT scan. Check lactate, blood culture, procalcitonin, MRSA swab, urinalysis, urine culture. Patient will benefit from lumbar puncture as well for further evaluation of CSF to rule out infection. CT neck consistent with fluid collection which is increasing in size. Can not r/o abscess. Ortho consulted from ER. For now start patient on broad-spectrum antibiotics with vancomycin and Zosyn. Will de-escalate as per clinical picture. COVID-19 PCR and respiratory viral panel checked in the ER negative. Poor oral intake: Secondary to nausea and difficulty swallowing. CT neck does show pharyngeal edema, but no mass or collection. Airway patent. ? post op edema vs reactionary to fluid collection Flonase, cephacol. Modified barium swallow Full liquid diet. Nausea can be 2/2 to VIOLET vs lithium toxicity. Zofran as needed. IVF. Monitor lithium level Q48 hr [place] toxicity: Last dose on 01/14. Continue to monitor on tele. [place] level Q48 hr. Analgesia: Morphine as needed, Tylenol as needed Glycemic control: Check A1c Nutrition: Full liquid diet, renal nondialysis CODE STATUS: Full code PUD prophylaxis: Pepcid DVT prophylaxis: Heparin 5000 every 12 hourly Admit to ICU to monitor for lithium toxicity in acute kidney injury This documentation was created by [employer] dice spotter software. Every effort was made to ensure accuracy of dice spotter. Any obvious errors or omissions should be clarified with the author of the document. Attestations Medical Necessity Statement*: Admission for more than 2 midnights for management of acute kidney injury, lithium toxicity, possible infection in a post operative patient Time Spent in Patient Care: Greater than 35 minutes Coding Level of Care Code Acute Supervisor Costuming for Chg Fwd Diagnoses Status post cervical spinal fusion Z98.1 VIOLET (acute kidney injury) N17.9 [place] intoxication T56.891A Leukocytosis D72.829 Dehydration E86.0 Nausea R11.0 Difficulty in swallowing R13.10 Cervical spondylosis with myelopathy M47.12
--- NOTE | 2022-01-21 18:30 | PC.PHAR ---
PT WAS TAKING LITHIUM 900MG BID - DR AT [facility]. ON 01/16/22- LAST TAKEN 01/16/22
[2022-01-21] MEDS: cefepime 2,000 MG in sodium chloride 0.9% (plus) 50 ML 100 MG IV (18:33)
[2022-01-21 19:51] LABS: Procalcitonin 0.12 ng/mL (0-0.5)
[2022-01-21 19:58] LABS: C Reactive Protein 24.3 mg/L (0.0-4.9); Thyroid Stimulating Hormone 1.52 uIU/mL (0.27-4.20); Vitamin B12 1652 pg/mL (232-1245)
[2022-01-21 20:09] LABS: Iron 33 ug/dL (59-158); Percent Saturation 16.7 % (20-50); Total Iron Binding Capacity 197 mcg/dl; Unsaturated Iron Binding 164 ug/dL (112-347)
[2022-01-21 20:55] LABS: CSF Mononuclear # 0.003 10^3/uL (50-90); Mononuclear WBC CSF % 50 % (50-90); Polynuclear Cells ,CSF # 0.003 10^3/uL (0-10); Polynuclear WBC CSF % 50 % (0-10); Red Blood Cell CSF 0 10^3/uL (0-0); White Blood Cell CSF 6 /uL (0-5)
[2022-01-21 20:57] LABS: Appearance CSF CLEAR (CLEAR); Color CSF COLORLESS (COLORLESS)
[2022-01-21 20:59] LABS: Pathology Referral Yes
[2022-01-21 21:03] LABS: Charge for UA Resulting for Rev
[2022-01-21 21:05] LABS: Glucose CSF 68 mg/dL (40-70)
[2022-01-21 21:06] LABS: Total Protein CSF 119 mg/dL (15-45)
[2022-01-21 21:08] LABS: Folate Level 5.7 ng/mL (4.5-32.2)
[2022-01-21 21:15] LABS: Cyto Order Verification No Order
[2022-01-21] MEDS: sodium chloride 0.9% 1,000 ML 75 ML IV (21:15)
[2022-01-21] MEDS: famotidine 20 mg/2 mL INJ IVP (21:16)
[2022-01-21] MEDS: piperacillin-tazobactam 3.375 GM in sodium chloride 0.9% (plus) 50 ML IV (21:16)
[2022-01-21] MEDS: heparin 5,000 unit/mL INJ 1 mL 5000 UNIT SUBCUT (21:17)
[2022-01-21 21:21] LABS: Add Urine Microscopic? YES; Bilirubin Urine Neg (Negative); Blood Urine 3+ (Negative); Glucose Urine UA Norm (Normal); Ketones Urine 1+ (Negative); Leukocyte Esterase Urine Negative (Negative); Nitrate Urine Negative (Negative); Protein Urine Neg (Negative); Specific Gravity, Urine 1.005 (1.005-1.030); Urine Appearance Clear (CLEAR); Urine Color Yellow (Yellow); Urobilinogen Urine Norm (Negative); pH Urine 7 (5-7)
[2022-01-21 21:44] LABS: Potassium, Radom Urine 24 mmol/L; Urine Creatinine 111 mg/dL (39-259); Urine Random Chloride 44 mmol/L; Urine Random Sodium 64 mmol/L
[2022-01-21 22:18] LABS: Lactic Sepsis W/Reflex 1.2 mmol/L (0.5-2.2)
[2022-01-22] VITALS (159 sets, daily range): BP systolic 92–164; BP diastolic 57–107; PULSE 68–110; RESP 0–26; TEMP 36.6–37.2; O2SAT 67–100
[2022-01-22 01:57] LABS: Eosinophil Urine No Eosinophils Seen
[2022-01-22] MEDS: morphine 4 mg/mL SDV 1 mL 2 MG IVP (03:22)
[2022-01-22 04:24] LABS: Basophils # 0.1 10^3/uL (0.0-0.1); Basophils % 0.4 %; Eosinophils # 0.3 10^3/uL (0.0-0.8); Eosinophils % 1.8 %; Hematocrit 35.3 % (42.0-52.0); Hemoglobin 11.4 g/dL (11.7-16.6); Lymphocytes # 1.2 10^3/uL (0.8-4.8); Lymphocytes % 6.9 %; Mean Corpuscular HGB Conc 32.3 g/dL (30.0-36.0); Mean Corpuscular Volume 89.8 fl (80-94); Monocytes # 1.2 10^3/uL (0.2-0.9); Monocytes % 7.4 %; Neutrophils # 13.66 10^3/uL (1.8-7.7); Neutrophils % 82.5 %; Nucleated Red Blood Cells % 0 %; Platelet Count 365 10^3/cmm (130-400); Red Blood Count 3.93 10^6/uL (4.1-5.3); Red Cell Distribution Width 12.3 % (12.1-15.1); White Blood Count 16.6 10^3/uL (4.0-10.0)
[2022-01-22 04:46] LABS: Alanine Aminotransferase 8 U/L (0-41); Albumin Level 3.8 g/dL (3.5-5.2); Alkaline Phosphatase 252 U/L (40-130); Anion Gap 15.8 (5-19); Aspartate Amino Transferase 18 U/L (0-40); Blood Urea Nitrogen 21 mg/dL (6-20); Calcium 10.1 mg/dL (8.5-10.5); Carbon Dioxide 21 mmol/L (22-29); Chloride 103 mmol/L (98-107); Chol HDL Ratio 4.67 mg/dL (1.0-5.00); Cholesterol 112 mg/dL (0-200); Globulin 2.8 g/dL (1.3-4.6); Glomerular Filtration Rate 63.1 mL/min (90-130); Glucose 108 mg/dL (65-115); HDL Cholesterol 24 mg/dL (60-100); LDL Cholesterol Calculated 71 mg/dL (50-129); Magnesium 2.1 mg/dL (1.7-2.3); Osmolality Calculated 286 mOsm/kg (285-295); Phosphorus 3.4 mg/dL (2.5-4.5); Potassium 3.8 mmol/L (3.5-5.1); Sodium 136 mmol/L (136-145); Total Bilirubin 0.3 mg/dL (0.15-1.2); Total Protein 6.6 g/dL (6.6-8.7); Triglycerides 85 mg/dL (0-150); VLDL Cholestrol Calculation 17 mg/dL (0-30)
[2022-01-22 04:51] LABS: Estmated Average Glucose 114; Hemoglobin A1C 5.6 % (4.0-6.0)
[2022-01-22] MEDS: piperacillin-tazobactam 3.375 GM in sodium chloride 0.9% (plus) 50 ML IV ×3 (06:02→20:08)
--- NOTE | 2022-01-22 07:56 | P.CONIM_ITS ---
Providers/Reason For Consult Consulting Physician/Specialty*: Ortho Spine Reason for Consult*: Weakness Attending Physician: Ramirez Peters MD Primary Care Provider: Lorrie Gtz History of Present Illness History of Present Illness Mr Moura is a 56 year old male who is postoperative 01/02 from an ACDF C4-5.C5-6 including C2-T2 Posterior spinal fusion. Patient was evaluated in the orthopedic clinic on 01/10 with continued pain and weakness was placed on oxycodone and OxyContin. His family is present during the evaluation in the ICU presents a difficult timeline to follow and poor history involving his symptoms. Patient was contacted by clinic in [place] due to increased lithium levels and was instructed to discontinue lithium. Presented to the ER for postoperative pain on 01/14.? He was also evaluated by an outside hospital on 01/17, as well as seen at [place] [facility].? Family endorses weakness and generalized inability to tolerate p.o. intake.? Patient reports nausea abdominal pain and during the exam in the room he begins throwing up. Patient has had difficult pain control issues was placed on OxyContin and oxycodone but is no longer taking that. He is just taking Tylenol currently. He denies fever chills or drainage from his incisional sites. He does report weakness with inability to stand or walk but has been progressively weak since the surgery. He does report his arm symptoms have improved. Does report some difficulty swallowing. Medications/Allergies Home Medications Medication Instructions Recorded Confirmed Last Taken Type Custom Foot Orthotics Bilaterally #1 ea 12/12/20 01/21/22 Unknown Rx Night splint #1 ea 01/02/21 01/21/22 Unknown Rx [place] J collar #1 ea 10/23/21 01/21/22 Unknown Rx Bone Growth Stimulator #1 ea 01/02/22 01/21/22 Unknown Rx acetaminophen 500 mg tablet 1,000 mg PO BID PRN Pain 01/03/22 01/21/22 Unknown History cyclobenzaprine 10 mg tablet 10 mg PO TID PRN muscle spasm 1 01/07/22 01/21/22 Unknown Rx month #90 tabs cephalexin 500 mg capsule 500 mg PO TID 7 days #21 caps 01/15/22 01/21/22 01/21/22 Rx ondansetron HCl 8 mg tablet 8 mg PO Q8H PRN nausea and 01/17/22 01/21/22 Unknown Rx vomiting #30 tabs fluoxetine 10 mg capsule 30 mg PO DAILY 01/21/22 01/21/22 01/21/22 History lisinopril 20 1 tab PO DAILY 01/21/22 01/21/22 01/21/22 History mg-hydrochlorothiazide 25 mg tablet Allergies Allergy/AdvReac Type Severity Reaction Status Date / Time No Known Allergies Allergy Verified 01/21/22 14:15 Current Medications Generic Name Dose Route Start Last Admin Trade Name Freq PRN Reason Stop Dose Admin Famotidine 20 mg 01/21/22 20:00 01/21/22 21:16 Famotidine 20 Mg/2 Ml Inj IVP 20 mg Q12H LISBET Administration Heparin Sodium (Porcine) 5,000 unit 01/21/22 20:30 01/21/22 21:17 Heparin 5,000 Unit/Ml Inj 1 Ml SUBCUT 5,000 unit Q12H LISBET Administration Piperacillin Sod/Tazobactam 50 mls @ 12.5 mls/hr 01/21/22 21:00 01/22/22 06:02 Sod 3.375 gm/ Sodium Chloride IV 12.5 mls/hr Q8H LISBET Administration Protocol Sodium Chloride 1,000 mls @ 75 mls/hr 01/21/22 19:56 01/21/22 21:15 Sodium Chloride 0.9% IV 75 mls/hr .[id number] LISBET Administration Morphine Sulfate 2 mg 01/21/22 19:56 01/22/22 03:22 Morphine 4 Mg/Ml Sdv 1 Ml IVP 2 mg Q4H PRN Administration SEVERE PAIN PFSH Acute PFSH: Medical History (Updated 01/21/22 @ 20:34 by Ramirez Peters MD) 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 Bipolar disorder Charcot's joint of foot Depression Erectile dysfunction Hammer toe of left foot Hypertension Surgical History (Updated 01/21/22 @ 20:34 by Ramirez Peters MD) H/O lumpectomy Status post cervical spinal fusion Status post right foot surgery Family History Denies family history of Diabetes CAD (coronary artery disease) Clotting disorder Dementia Hyperlipidemia Psychiatric illness Chronic kidney disease (CKD) Suicide Anesthesia complication Bleeding disorder Family history of premature coronary artery disease Lung disease Cancer Hypertension Stroke Social History Smoking and tobacco status: former smoker (40+ years ) Second hand smoke exposure: No Smoking risk assessment/counseling performed?: No Alcohol intake: never Desire information about alcohol rehabilitation?: No Counseling given: No Desire information about substance/drug rehabilitation?: No Counseling given: No Adopted: No Caregiver/support person: No Vitals/I&O/Wt Last Vital Signs Temp 98.9 F 01/22/22 05:50 Pulse 85 01/22/22 06:00 Resp 8 L 01/22/22 05:55 BP 118/76 01/22/22 05:55 Pulse Ox 95 01/22/22 05:55 O2 Del Method 01/21/22 20:17 01/21/22 01/22/22 01/22/22 22:59 06:59 14:59 Intake Total 1600 / 1600 Output Total 1450 / 1450 Balance 150 / 150 Weight last 48 hrs Weight 254 lb Physical Exam Narrative: Patient is alert and oriented x3 with good general appearance, patient appears very lethargic depressed mood and affect. Nontender with palpation about the incisional site. Incision appears to be healing with signs of erythema around the suture sites which appears to be irritability from sutures. Good motor strength throughout both upper extremities. Appears to fire in all motor groups with 4/5 strength. Hands are warm good cap refill in all digits. Normal sensation to light touch in all dermatomal areas. Urinary Catheter Management: Coude: Cath Placed During This Visit: yes Reason for Continuing Indwelling Catheter: Accurate Measurement of Urinary Output in Critically Ill Patients Urinary Catheter Date of Insertion: 01/21/22 Urinary Catheter Time of Insertion: 17:05 Data : 01/22/22 04:02 01/22/22 04:02 Micro: Microbiology 01/21/22 20:40 Legionella Urinary Antigen - Final Urine Catheterized 01/21/22 12:24 Blood Culture - Preliminary Blood SPECIMEN COLLECTED 01/21/22 12:20 Blood Culture - Preliminary Blood SPECIMEN COLLECTED Other CT: Radiologist's impression: CT/CT neck w con* [id number] IMPRESSION: 1. Comparison CT 01/14/2022. Multilevel posterior and anterior surgical fusion hardware with midline posterior fluid collection, presumably postop as described above. The superior aspect of midline posterior fluid collection is relatively stable however the inferior component of fluid collection has significantly increased in size as described. Multilevel endplate irregularity is also noted and stable. Please refer to discussion above as active infectious process would be difficult to exclude in this setting. 2. Probable minimal symmetric pharyngeal soft tissue thickening and may be related to nonspecific edema or minimal pharyngitis, unchanged. No discrete tonsillar abscess or other soft tissue neck mass.? No other obvious signs of acute collection or acute infectious process in the deep soft tissue neck spaces. 3. Sinus findings as above. A&P Assessment and plan (1) Status post cervical spinal fusion: Very confusing presentation with this patient with his increased lithium levels lethargic state and nausea and vomiting in the room. Reviewing the CT scan does show increased fluid which would be consistent with postoperative changes as the patient does not appear septic. An MRI scan may be more useful to help evaluate. He is moving both lower extremities. Patient had a generalized weakness coming into surgery due to myelopathy. Patient states that his arms are better but he has been weak in his legs due to deconditioning. We will disc uss at length with Dr. Maher order an MRI scan of his cervical spine for further evaluation. Status: Acute (2) [place] intoxication: Status: Acute (3) Nausea: Status: Acute Coding Level of Care Code Acute Avionics Supervisor for Chg Fwd Diagnoses Status post cervical spinal fusion Z98.1 [place] intoxication T56.891A Nausea R11.0
[2022-01-22] MEDS: ondansetron 2 mg/ML SDV 2 mL 4 MG IVP (08:05)
--- NOTE | 2022-01-22 08:07 | MRR_ITS ---
PROCEDURE INFORMATION: Exam: MR Cervical Spine Without Contrast Exam date and time: 01/22/2022 3:34 PM Age: 56 years old Clinical indication: Weakness and other: Fluid collection; Prior surgery; Surgery date: <1 month; Surgery type: C spine 01/17/22; Patient HX: Fluid collection recent cspine sugery, neck pains weakness TECHNIQUE: Imaging protocol: Magnetic resonance imaging of the cervical spine without contrast. COMPARISON: CT cervical spin wo con* [id number] 01/14/2022 9:54 PM FINDINGS: Bones/joints: Anterior mechanical fusion of C4-C6 with anterior spacers. Posterior fusion hardware with left pedicle screws at C2, C3, C4, C5, C6, T1, and T2. Right pedicle screws at C2, C5, C6, T1, and T2. Posterior stabilization rods. C3-C5 decompressive laminectomies. Partial resection of the C2 spinous process. Spinal cord: Normal signal. No cord compression. C2-C3: The C2-C3: Disc space narrowing. No bulge. No central canal or foraminal stenosis. C3-C4: Disc space narrowing. No disc bulge. Moderate central canal stenosis due to compression by the posterior fluid collection. No foraminal stenosis. C4-C5: Discectomies with anterior spacers at C4-C5 and C5-C6. Discectomy with spacer. Severe central canal stenosis due to compression by the posterior fluid collection. No foraminal stenosis. C5-C6: Discectomy with spacer. No central canal stenosis. No foraminal stenosis. C6-C7: Disc space narrowing with small posterior disc bulge. Mild central canal stenosis. Mild bilateral foraminal stenosis. C7-T1: No significant disc disease. No significant spinal stenosis. Soft tissues: Large fluid collection in the C3-C5 laminectomy defect with extension into the posterior soft tissues from the C2 through T2 levels and extending beyond the inferior images. This fluid collection measures 5.1 x 4.7 x 15.5 cm (AP, transverse, longitudinal). This fluid collection has gas bubbles on the CT. Vasculature: Expected flow voids in the vertebral arteries. MR/MR cervical spin wo con* [id number] IMPRESSION: 1. Extensive postsurgical changes including C3-C5 decompressive laminectomies with, with anterior mechanical fusion of C4-6, and posterior mechanical fusion of C4-T2. 2. Large fluid collection in the C3-5 decompressive laminectomy defect and extending into the posterior soft tissues. This measures 5.1 x 4.7 x 15.5 cm and is suspicious for postoperative abscess. This fluid collection extends inferiorly into the upper thoracic soft tissues, beyond the images provided. 3. With mass effect from the with posterior fluid collection creates moderate central canal stenosis at C3-C4 and severe central canal stenosis at C4-C5.
[2022-01-22 08:42] LABS: ABG PH Result 7.37 (7.35-7.45); Alveolar-Arterial Oxygen Gradi 2.9 mmHg (5-10); Arterial Blood Gas Hematocrit 34.9 % (42-52); Base Excess ABG -5.1 mmol/L (-2.0-2.0); Blood Gas Allen Test Pos; Blood Gas Operator Identificat CAK; Blood Gas Sample Site Radial, left; Blood Gas Sample Type Arterial; HCO3 ABG 19.5 mmol/L (22-26); HGB O2 Sat 96.1 % (95-100); Ionized Calcium Level - ABG 1.4 mmol/L (1.1-1.4); Methemoglobin 0.5 % (0.4-1.5); Oxygen Device ROOM AIR; Oxygen Saturation ABG 97.6; PO2 ABG 84.2 mmHg (80.0-100.0); Potassium Level - ABG 3.4 mmol/L (3.5-5.0); Total Hemoglobin 11.4 g/dL (14-18)
[2022-01-22] MEDS: budesonide 0.5 mg/2 mL Neb INHALATION (09:03)
[2022-01-22] MEDS: ipratropium-albuterol 3 mL Neb INHALATION (09:03)
[2022-01-22] MEDS: fluoxetine 10 mg Capsule 30 MG PO (09:38)
[2022-01-22] MEDS: ferrous gluconate 324 mg Tablet PO ×2 (09:39→17:16)
[2022-01-22] MEDS: famotidine 20 mg/2 mL INJ IVP ×2 (09:39→20:08)
[2022-01-22] MEDS: heparin 5,000 unit/mL INJ 1 mL 5000 UNIT SUBCUT (09:39)
[2022-01-22] MEDS: sodium chloride 0.9% 1,000 ML 75 ML IV (10:38)
[2022-01-22] MEDS: vancomycin 1,250 MG/250 ML PIGGYBACK 250 MG IV (12:10)
--- NOTE | 2022-01-22 12:36 | PC.CHAP ---
Pastoral Care Encounter/Spiritual Assessment Type of Contact [] Declined spiral gear generator visit [] Patient/Family/Request visit [] Outpatient visit [] Follow-up visit [] Physician referral [] Code/Alert [x] Routine visit [] Staff referral [] Actively dying [] Patient sleeping [x] Family support [] [] Out of room [] Palliative care [] [] Receiving care in room [] Pre-surgical visit [] Trauma [] Long length of stay [x] ICU visit [] Other: Relational/Emotional Strength [] Patient feels connected with others/family/visitors/staff [] Distress [] Loneliness/isolation [] Abandonment Spirituality of Patient [] Person of Melany [] Attends Temple of their Melany [] Believes in Prayer [] Reads Bible or Temple materials [] There are Spiritual issues to be addressed Program Manager Transportation Interventions [x] Prayer [] Active listening [] Non-anxious presence [] Spiritual/emotional support [] Crisis/trauma care [] Spiritual counseling [] Bereavement support [] Provided bereavement packet [] Provided Bible/devotional materials [] Provided toy/stuffed animal, coloring book to patient or family member [] Provided Communion [] Anointing/[place] [] Salvation [x] Completed spiritual assessment [] Other: Impact on Illness or Injury [] Angry [] Fearful [] Anxious [] Often cries [] Exhaustion [] Unable to work [] Unable to attend congregational [] Unable to walk/stand [] Unable to read [] Unable to drive [] Unable to eat/drink [] Unable to sleep [] Unable to be with family [] Patient intubated [] Other: Summary Time spent with patient
--- NOTE | 2022-01-22 14:06 | PM.PN ---
Subjective Subjective: No acute events overnight. Today morning examination patient's mother at bedside. Patient is sleeping, but arousable. During conversation with the patient he is drowsy and goes back to sleep. As per the mother patient uses CPAP at home which was not made aware yesterday. Patient was on nasal cannula overnight. Patient was placed back on CPAP. Has had good urine output of around 1400 cc since admission. Has remained afebrile. Did have episode of vomiting today morning. Vitals/I&O/Wt Last Vital Signs Temp 97.9 F 01/22/22 11:50 Pulse 95 01/22/22 11:50 Resp 12 01/22/22 11:50 BP 138/86 01/22/22 11:50 Pulse Ox 97 01/22/22 11:50 O2 Del Method 01/22/22 11:50 01/21/22 01/22/22 01/22/22 22:59 06:59 14:59 Intake Total 1600 / 1600 1300 / 1300 Output Total 1450 / 1450 Balance 150 / 150 1300 / 1300 Weight last 48 hrs Weight 115.212 kg Physical Exam Narrative: EXAM NARRATIVE: General: No acute distress, AO x3, sick appearing HEENT: PERRLA, pupils bilaterally equal and reactive Chest: Bilateral normal vesicular breath sounds, good equal air entry CVS: S1-S2 regular, no murmurs, no tachycardia, no gallops, no rubs Abdomen: Soft, nontender mildly distended, no organomegaly, bowel sounds present, morbidly obese Neuro: No focal deficits, no facial deformity, AO x3, power 5/5 in all limbs Urinary Catheter Management: Coude: Cath Placed During This Visit: yes Reason for Continuing Indwelling Catheter: Accurate Measurement of Urinary Output in Critically Ill Patients Urinary Catheter Date of Insertion: 01/21/22 Urinary Catheter Time of Insertion: 17:05 Data : 01/22/22 04:02 01/22/22 04:02 Micro: Microbiology 01/21/22 12:24 Blood Culture - Preliminary Blood NEGATIVE TO DATE 01/21/22 12:20 Blood Culture - Preliminary Blood NEGATIVE TO DATE 01/21/22 20:40 Bacterial Antigens - Final Urine Kidney 01/21/22 20:40 Legionella Urinary Antigen - Final Urine Catheterized A&P Assessment and plan (1) Status post cervical spinal fusion: Status: Acute (2) VIOLET (acute kidney injury): Status: Acute (3) [place]sberry intoxication: Status: Acute (4) Leukocytosis: Status: Acute (5) Dehydration: Status: Acute (6) Nausea: Status: Acute (7) Difficulty in swallowing: Status: Acute (8) Cervical spondylosis with myelopathy: Status: Acute (9) Obstructive sleep apnea: Status: Acute (10) CPAP (continuous positive airway pressure) dependence: Status: Acute Plan 52 gentleman with recent history of cervical fusion within the last 3 weeks presents with poor oral intake, generalized weakness and myalgias found to be in VIOLET along with leukocytosis. Acute kidney injury: Resolved. Good urine output. Most likely secondary to dehydration from poor oral intake home dose of lisinopril and hydrochlorothiazide. Cannot rule out sepsis. Medical reconciliation done for nephrotoxic drugs. Roy catheterization. Continue with normal saline at 75 cc/h. CT abdomen pelvis negative for obstructive nephropathy. Continue to monitor daily. Leukocytosis: Cannot rule out sepsis given collection found on CT scan. Lactate normal, CSF study negative for any signs of infection, Pro-Davin negative, UA negative, urine Legionella, bacterial antigen negative for any signs of infection. Care discussed with Dr. Maher. Plan for MRI of the neck for further evaluation of fluid collection versus abscess. Follow blood cultures, CSF cultures. For now start patient on broad-spectrum antibiotics with vancomycin and Zosyn. Will de-escalate as per clinical picture. COVID-19 PCR and respiratory viral panel checked in the ER negative. Poor oral intake: Secondary to nausea and difficulty swallowing. CT neck does show pharyngeal edema, but no mass or collection. Airway patent. ? post op edema vs reactionary to fluid collection Flonase, cephacol. Modified barium swallow negative for any signs of aspiration or difficulty in swallowing. MRI should help with any obstruction. Full liquid diet. Nausea can be 2/2 to VIOLET vs lithium toxicity. Zofran as needed. IVF. Monitor lithium level Q48 hr Elsberry toxicity: Last dose on 01/14. Continue to monitor on tele. Elsberry level Q48 hr. Obstructive sleep apnea: Continuing home CPAP. Analgesia: Morphine as needed, Tylenol as needed Glycemic control: Check A1c Nutrition: Full liquid diet, CODE STATUS: Full code PUD prophylaxis: Pepcid DVT prophylaxis: Heparin 5000 every 12 hourly Transfer out of ICU to [facility] floor. This documentation was created by [email or web address] communications director software. Every effort was made to ensure accuracy of communications director. Any obvious errors or omissions should be clarified with the author of the document. Attestations Medical Necessity Statement*: Course of the hospitalization for management of nausea/poor oral intake from difficulty to swallowing and the patient with recent cervical surgery, leukocytosis while infectious source is ruled out, VIOLET resolved Time Spent in Patient Care: Greater than 35 minutes Coding Level of Care Code Acute Laundry Equipment Operator for Chg Fwd Diagnoses Status post cervical spinal fusion Z98.1 VIOLET (acute kidney injury) N17.9 Elsberry intoxication T56.891A Leukocytosis D72.829 Dehydration E86.0 Nausea R11.0 Difficulty in swallowing R13.10 Cervical spondylosis with myelopathy M47.12 Obstructive sleep apnea G47.33 CPAP (continuous positive airway pressure) dependence Z99.89
[2022-01-22] MEDS: fluticasone nasal spray 16gm Btl 1 SPRAY NASAL (17:16)
[2022-01-22] MEDS: docusate sodium 100 mg Capsule PO (17:16)
--- NOTE | 2022-01-22 18:47 | PC.NURSE ---
PT HAS HAD A GOOD UNEVENTFUL SHIFT. PT HAS BEEN DOWN FOR A BARIUM SWALLOW WELL MRI TODAY. PT TOLERATED THIS OK. EARLY THIS MORNING PT HAD AN EPISODE OF SOME EMESIS. PT WAS GIVEN ORDERED ZOFRAN. PT HAS NOT VOMITED SINCE NOR HAS HE HAD ANY COMPLAINTS OF BEING NAUSEOUS. PT WILL GO FOR SURGERY TOMORROW. DR LAURENT WAS IN TO TALK WITH PT. ALL QUESTIONS ANSWERED. PT HAS BEEN UP TO THE RESTROOM, HAD ONE BM. PT TOLERATED THIS OK. PT IS ALERT BUT PRETTY LETHARGIC AND OPENS HIS EYES TO VERBAL COMMAND. VITAL SIGNS HAVE REMAINED WNL. WILL CONTINUE TO MONITOR PT.
--- NOTE | 2022-01-22 19:00 | PC.NURSE ---
Pt. laying in bed with lemmon collar in place. no needs identified at this time.
--- NOTE | 2022-01-22 21:47 | FL_ITS ---
WS: [id number] MODIFIED BARIUM SWALLOW HISTORY: Oropharyngeal dysphagia FLUOROSCOPY TIME: 2min [id number] # of spot films: 1 Modified barium swallow was performed by the speech pathologist. Fluoroscopy was provided with the pa tient in a lateral projection. Multiple food consistencies were provided. Patient was able to swallow all food consistencies without difficulty. There was slight delay in init iation of swallowing. After the swallowing mechanism was initiated there was no aspiration or larynge al penetration. Barium tablet swallowed without difficulty. Extensive anterior posterior cervical fusion hardware. FL/FL barium swallow modifd [id number] IMPRESSION: 1. No significant aspiration or laryngeal penetration identified. 2. No significant swallowing deficit. Please see speech therapist report also for recommendations.
[2022-01-23] VITALS (70 sets, daily range): BP systolic 110–155; BP diastolic 71–110; PULSE 74–97; RESP 9–26; TEMP 35.9–36.9; O2SAT 95–100
--- NOTE | 2022-01-23 | SCC_ITS ---
Procedure done: 1. Evacuation of hematoma 2. Removal of screw (hardware); placement of new C2 screw 17.2 seconds of fluoroscopic guidance, for a cumulative dose of 2.99 mGy, was provided to Dr. Maher by the radiology department. C-arm images of the cervical spine were saved for the patient's permanent record. [facility] HOSPITALYulisa
--- NOTE | 2022-01-23 | XR_ITS ---
WS: [id number] C-arm fluoroscopy of cervical spine, 01/23/2022 Clinical Data: hardware adjustment Comparison: Cervical spine, 01/03/2022. Findings: Lateral views reveal the anterior cervical disc fusion and posterior cervical fusion. Dr. Maher adjus john the hardware. XR/XR cervical spine 1V [id number] Impression: Adjustment of cervical fusion hardware.
[2022-01-23] MEDS: sodium chloride 0.9% 1,000 ML 75 ML IV (04:40)
[2022-01-23] MEDS: piperacillin-tazobactam 3.375 GM in sodium chloride 0.9% (plus) 50 ML IV ×2 (04:40→16:05)
--- NOTE | 2022-01-23 05:20 | PC.NURSE ---
Pt. attempted to sit side of bed, very confused and agitated. Pt. was trying to leave. Pt. had to be talked down by 3 full time staff interpreter. THen aggreed to get back in bed. No needs identified at this time.
[2022-01-23] MEDS: morphine 4 mg/mL SDV 1 mL 2 MG IVP (05:34)
[2022-01-23] MEDS: ondansetron 2 mg/ML SDV 2 mL 4 MG IVP (05:34)
[2022-01-23 05:57] LABS: Basophils # 0.1 10^3/uL (0.0-0.1); Basophils % 0.6 %; Eosinophils # 0.4 10^3/uL (0.0-0.8); Eosinophils % 2.3 %; Hematocrit 38.1 % (42.0-52.0); Hemoglobin 12.2 g/dL (11.7-16.6); Lymphocytes # 1.8 10^3/uL (0.8-4.8); Lymphocytes % 11.9 %; Mean Corpuscular Hemoglobin 29.5 pg (28.0-34.0); Mean Platelet Volume 11.5 fL (7.4-10.4); Monocytes % 6.7 %; Neutrophils # 11.95 10^3/uL (1.8-7.7); Neutrophils % 77.5 %; Nucleated Red Blood Cells % 0 %; Platelet Count 367 10^3/cmm (130-400); Red Blood Count 4.14 10^6/uL (4.1-5.3); Red Cell Distribution Width 12.7 % (12.1-15.1); White Blood Count 15.4 10^3/uL (4.0-10.0)
[2022-01-23 06:14] LABS: Chloride 104 mmol/L (98-107); Potassium 3.8 mmol/L (3.5-5.1); Sodium 139 mmol/L (136-145)
[2022-01-23 06:18] LABS: Lithium 1.6 mmol/L (0.6-1.2)
[2022-01-23 06:45] LABS: Alanine Aminotransferase 7 U/L (0-41); Albumin Level 3.8 g/dL (3.5-5.2); Alkaline Phosphatase 268 U/L (40-130); Anion Gap 19.8 (5-19); Blood Urea Nitrogen 13 mg/dL (6-20); Calcium 10.2 mg/dL (8.5-10.5); Carbon Dioxide 19 mmol/L (22-29); Globulin 3.4 g/dL (1.3-4.6); Glomerular Filtration Rate 77.9 mL/min (90-130); Glucose 114 mg/dL (65-115); Osmolality Calculated 289 mOsm/kg (285-295); Total Bilirubin 0.3 mg/dL (0.15-1.2); Total Protein 7.2 g/dL (6.6-8.7)
[2022-01-23 07:06] LABS: Aspartate Amino Transferase 13 U/L (0-40)
[2022-01-23] MEDS: vancomycin 1,250 MG/250 ML PIGGYBACK 250 MG IV (07:09)
[2022-01-23] MEDS: famotidine 20 mg/2 mL INJ IVP ×2 (08:15→20:10)
--- NOTE | 2022-01-23 11:13 | W.PM.OPSUD ---
Surgery/Procedure H&P Update DATE OF PROCEDURE: January 23, 2022 DATE H&P PERFORMED: 01/21/22 H&P UPDATE INFORMATION: I have reviewed H&P completed within last 30 days, I have examined patient prior to procedure and No changes to prior documentation PREOP DIAGNOSIS: Cervical spondylosis with myelopathy, anterior listhesis C4-5 PLANNED PROCEDURE: Operation Date: 01/23/22 12:10 Proposed Procedures p posterior cervical I&D with screw adjust,ent(Not Applicable) - Aniket Maher DO
[2022-01-23] MEDS: ceFAZolin 2,000 MG in sodium chloride 0.9% (plus) 50 ML 100 MG IV (12:45)
--- NOTE | 2022-01-23 12:50 | P.ANESASSM_ITS ---
Pre-Anesthetic Assessment Height/Weight: Height 1.91 m Weight 115.666 kg Temp Pulse Resp BP Pulse Ox O2 Del Method O2 Flow Rate 98.0 F 86 16 132/92 96 2 01/23/22 11:48 01/23/22 11:48 01/23/22 11:48 01/23/22 11:48 01/23/22 11:48 01/23/22 11:48 01/22/22 20:00 Preop Diagnosis: Cervical spondylosis with myelopathy, anterior listhesis C4-5 Operation Date: 01/23/22 12:10 Proposed Procedures p posterior cervical I&D with screw adjust,ent(Not Applicable) - Aniket Maher, DO Familial anesthetic complications: none Was Beta Faustina taken within 24 hours: N/A Was Clonidine taken within 24 hours: N/A Last intake: Intake Last Liquid Date 01/22/22 Social No alcohol and No tobacco Exam oriented x 3, clear to auscultation bilaterally and regular rate & rhythm Airway Submandibular: within normal limits Cervical ROM: Other (some discomfort with ROM but not severly limited) Mallampati: Class II Dentition: chipped Comments: Comments: recent cervical fusion Pulmonary Sleep Apnea CV/HEM Hypertension VIOLET Metabolic Diabetes Mellitus, Hyperlipidemia and Morbid Obesity Neuropsych Neuropathy myelopathy Anesthetic Plan ASA status: 4 Anesthesia: General Medications/Allergies Home Medications Medication Instructions Recorded Confirmed Last Taken Type Custom Foot Orthotics Bilaterally #1 ea 12/12/20 01/21/22 Unknown Rx Night splint #1 ea 01/02/21 01/21/22 Unknown Rx [place] J collar #1 ea 10/23/21 01/21/22 Unknown Rx Bone Growth Stimulator #1 ea 01/02/22 01/21/22 Unknown Rx acetaminophen 500 mg tablet 1,000 mg PO BID PRN Pain 01/03/22 01/21/22 Unknown History cyclobenzaprine 10 mg tablet 10 mg PO TID PRN muscle spasm 1 01/07/22 01/21/22 Unknown Rx month #90 tabs cephalexin 500 mg capsule 500 mg PO TID 7 days #21 caps 01/15/22 01/21/22 01/21/22 Rx ondansetron HCl 8 mg tablet 8 mg PO Q8H PRN nausea and 01/17/22 01/21/22 Unknown Rx vomiting #30 tabs fluoxetine 10 mg capsule 30 mg PO DAILY 01/21/22 01/21/22 01/21/22 History lisinopril 20 1 tab PO DAILY 01/21/22 01/21/22 01/21/22 History mg-hydrochlorothiazide 25 mg tablet Allergies Allergy/AdvReac Type Severity Reaction Status Date / Time No Known Allergies Allergy Verified 01/21/22 14:15 Current Medications Generic Name Dose Route Start Last Admin Trade Name Freq PRN Reason Stop Dose Admin Docusate Sodium 100 mg 01/22/22 09:00 01/23/22 08:10 Docusate Sodium 100 Mg Capsule PO Not Given BID LISBET Famotidine 20 mg 01/21/22 20:00 01/23/22 08:15 Famotidine 20 Mg/2 Ml Inj IVP 20 mg Q12H LISBET Administration Ferrous Gluconate 324 mg 01/22/22 08:00 01/23/22 08:10 Ferrous Gluconate 324 Mg Tablet PO Not Given BIDWM LISBET Fluoxetine HCl 30 mg 01/22/22 09:00 01/23/22 08:11 Fluoxetine 10 Mg Capsule PO Not Given DAILY [facility] Fluticasone Propionate 1 spray 01/22/22 18:00 01/23/22 08:11 Fluticasone Nasal [place] 16gm Btl NASAL Not Given BID [facility] Heparin Sodium (Porcine) 5,000 unit 01/21/22 20:30 01/22/22 09:39 Heparin 5,000 Unit/Ml Inj 1 Ml SUBCUT 5,000 unit Q12H LISBET Administration Piperacillin Sod/Tazobactam 50 mls @ 12.5 mls/hr 01/21/22 21:00 01/23/22 09:04 Sod 3.375 gm/ Sodium Chloride IV Infused Q8H [facility] Infusion Protocol Sodium Chloride 1,000 mls @ 75 mls/hr 01/21/22 19:56 01/23/22 04:40 Sodium Chloride 0.9% IV 75 mls/hr .[id number] LISBET Administration Morphine Sulfate 2 mg 01/21/22 19:56 01/23/22 05:34 Morphine 4 Mg/Ml Sdv 1 Ml IVP 2 mg Q4H PRN Administration SEVERE PAIN Ondansetron HCl 4 mg 01/21/22 19:56 01/23/22 05:34 Ondansetron 2 Mg/Ml Sdv 2 Ml IVP 4 mg Q8H PRN Administration vomiting, or N/V if npo PFSH Anesthesia Medical History (Updated 01/23/22 @ 00:01 by ) 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 Bipolar disorder Charcot's joint of foot CPAP (continuous positive airway pressure) dependence Depression Erectile dysfunction Hammer toe of left foot Hypertension Obstructive sleep apnea Surgical History (Updated 01/21/22 @ 20:34 by Ramirez Peters MD) H/O lumpectomy Status post cervical spinal fusion Status post right foot surgery Family History Denies family history of Diabetes CAD (coronary artery disease) Clotting disorder Dementia Hyperlipidemia Psychiatric illness Chronic kidney disease (CKD) Suicide Anesthesia complication Bleeding disorder Family history of premature coronary artery disease Lung disease Cancer Hypertension Stroke Social History Smoking and tobacco status: former smoker (40+ years ) Second hand smoke exposure: No Smoking risk assessment/counseling performed?: No Alcohol intake: never Desire information about alcohol rehabilitation?: No Counseling given: No Desire information about substance/drug rehabilitation?: No Counseling given: No Adopted: No Caregiver/support person: No Data Anesthesia : 01/23/22 05:36 01/23/22 05:36 Short CBC 01/22/22 01/23/22 Range/Units 04:02 05:36 WBC 16.6 H 15.4 H (4.0-10.0) 10^3/uL Hgb 11.4 L 12.2 (11.7-16.6) g/dL Hct 35.3 L 38.1 L (42.0-52.0) % MCV 89.8 92.0 (80-94) fl Plt Count 365 367 (130-400) 10^3/cmm Neut % (Auto) 82.5 77.5 % Neut # (Auto) 13.66 H 11.95 H (1.8-7.7) 10^3/uL BMP 01/21/22 01/22/22 01/23/22 11:37 04:02 05:36 Sodium 133 L 136 139 Potassium 3.7 3.8 3.8 Chloride 96 L 103 104 Carbon Dioxide 24 21 L 19 L BUN 28 H 21 H 13 Creatinine 2.0 H 1.2 1.0 Glucose 93 108 114 Calcium 10.2 10.1 10.2 Liver Function 01/21/22 01/22/22 01/23/22 Range/Units 11:37 04:02 05:36 Total Bilirubin 0.4 0.3 0.3 (0.15-1.2) mg/dL AST 6 18 13 (0-40) U/L ALT 7 8 7 (0-41) U/L Alkaline Phosphatase 250 H 252 H 268 H (40-130) U/L Albumin 4.1 3.8 3.8 (3.5-5.2) g/dL Urine 01/21/22 01/21/22 Range/Units 14:40 20:40 Urine Color Dark yellow Yellow (Yellow) Urine Appearance Clear Clear (CLEAR) Urine pH 6 7 (5-7) Ur Specific [place] 1.015 1.005 (1.005-1.030) Urine Protein Trace Neg (Negative) Urine Glucose (UA) Norm Norm (Normal) Urine Ketones 2+ H 1+ H (Negative) Urine Nitrate Negative Negative (Negative) Urine Bilirubin 1+ H Neg (Negative) Ur Leukocyte Esterase Negative Negative (Negative) Urine RBC None (0-2) /hpf Urine WBC 5-10 H (0-5) /hpf COVID Results 01/21/22 15:08 Coronavirus 229E (PCR) Not detected SARS-CoV-2 (PCR) Not detected Coags 01/21/22 11:37 C-Reactive Protein 24.3 H ABG 01/22/22 08:31 Specimen Type Arterial Sample Site Radial, left ABG pH 7.37 ABG pCO2 34.0 L ABG pO2 84.2 ABG HCO3 19.5 L ABG O2 Saturation 97.6 ABG Base Excess -5.1 L A-a O2 Gradient 2.9 L O2 Delivery Device Room air FiO2 21.0 Microbiology 01/21/22 20:40 MRSA Culture - Final Nose 01/22/22 13:40 Bacterial Antigens - Final Cerebrospinal Fluid 01/21/22 19:20 Gram Stain - Final Cerebrospinal Fluid CSF Culture - Preliminary 01/21/22 12:24 Blood Culture - Preliminary Blood NEGATIVE TO DATE 01/21/22 12:20 Blood Culture - Preliminary Blood NEGATIVE TO DATE 01/21/22 20:40 Bacterial Antigens - Final Urine Kidney Cardiac Studies: No Data to Display
--- NOTE | 2022-01-23 12:57 | PC.CHAP ---
Pastoral Care Encounter/Spiritual Assessment Type of Contact [] Declined zigzagger visit [] Patient/Family/Request visit [] Outpatient visit [] Follow-up visit [] Physician referral [] Code/Alert [x] Routine visit [] Staff referral [] Actively dying [] Patient sleeping [x] Family support [] [x] Out of room [] Palliative care [] [] Receiving care in room [] Pre-surgical visit [] Trauma [] Long length of stay [x] ICU visit [x] Other: surgery Relational/Emotional Strength [] Patient feels connected with others/family/visitors/staff [] Distress [] Loneliness/isolation [] Abandonment Spirituality of Patient [] Person of Melany [] Attends Caodaism of their Melany [] Believes in Prayer [] Reads Bible or Adventism materials [] There are Spiritual issues to be addressed Clothing Examiner Interventions [x] Prayer [] Active listening [] Non-anxious presence [] Spiritual/emotional support [] Crisis/trauma care [] Spiritual counseling [] Bereavement support [] Provided bereavement packet [] Provided Bible/devotional materials [] Provided toy/stuffed animal, coloring book to patient or family member [] Provided Communion [] Anointing/[place] [] Salvation [x] Completed spiritual assessment [] Other: Impact on Illness or Injury [] Angry [] Fearful [] Anxious [] Often cries [] Exhaustion [] Unable to work [] Unable to attend confucianism [] Unable to walk/stand [] Unable to read [] Unable to drive [] Unable to eat/drink [] Unable to sleep [] Unable to be with family [] Patient intubated [] Other: Summary Time spent with patient
[2022-01-23] MEDS: vancomycin 1,000 MG SDV 1000 MG XX (13:02)
--- NOTE | 2022-01-23 13:13 | PM.PN ---
Subjective Subjective: No acute events overnight. Patient has remained hemodynamically stable and afebrile. Today morning examination patient is sleeping but is arousable to physical stimulus. Wakes up to have conversation. Not eating or drinking much as per the nurse. Currently n.p.o. for possible OR and washout. Vitals/I&O/Wt Last Vital Signs Temp 98.0 F 01/23/22 11:48 Pulse 86 01/23/22 11:48 Resp 16 01/23/22 11:48 BP 132/92 01/23/22 11:48 Pulse Ox 96 01/23/22 11:48 O2 Del Method 01/23/22 11:48 O2 Flow Rate 2 01/22/22 20:00 01/22/22 01/23/22 01/23/22 22:59 06:59 14:59 Intake Total 50 / 1350 1050 / 2400 350 / 350 Output Total 650 / 650 250 / 250 Balance 50 / 1350 400 / 1750 100 / 100 Weight last 48 hrs Weight 115.666 kg Physical Exam Narrative: EXAM NARRATIVE: General: No acute distress, AO x3, sick appearing, neck brace, HEENT: PERRLA, pupils bilaterally equal and reactive Chest: Bilateral normal vesicular breath sounds, good equal air entry CVS: S1-S2 regular, no murmurs, no tachycardia, no gallops, no rubs Abdomen: Soft, nontender mildly distended, no organomegaly, bowel sounds present, morbidly obese Neuro: No focal deficits, no facial deformity, AO x3, power 5/5 in all limbs Urinary Catheter Management: Coude: Cath Placed During This Visit: yes Reason for Continuing Indwelling Catheter: Accurate Measurement of Urinary Output in Critically Ill Patients Urinary Catheter Date of Insertion: 01/21/22 Urinary Catheter Time of Insertion: 17:05 Data : 01/23/22 05:36 01/23/22 05:36 Micro: Microbiology 01/21/22 20:40 MRSA Culture - Final Nose 01/22/22 13:40 Bacterial Antigens - Final Cerebrospinal Fluid 01/21/22 19:20 Gram Stain - Final Cerebrospinal Fluid CSF Culture - Preliminary 01/21/22 12:24 Blood Culture - Preliminary Blood NEGATIVE TO DATE 01/21/22 12:20 Blood Culture - Preliminary Blood NEGATIVE TO DATE 01/21/22 20:40 Bacterial Antigens - Final Urine Kidney A&P Assessment and plan (1) Status post cervical spinal fusion: Status: Acute (2) VIOLET (acute kidney injury): Status: Acute (3) [place] intoxication: Status: Acute (4) Leukocytosis: Status: Acute (5) Dehydration: Status: Acute (6) Nausea: Status: Acute (7) Difficulty in swallowing: Status: Acute (8) Cervical spondylosis with myelopathy: Status: Acute (9) Obstructive sleep apnea: Status: Acute (10) CPAP (continuous positive airway pressure) dependence: Status: Acute Plan 52 gentleman with recent history of cervical fusion within the last 3 weeks presents with poor oral intake, generalized weakness and myalgias found to be in VIOLET along with leukocytosis. Acute kidney injury: Resolved. Good urine output. Most likely secondary to dehydration from poor oral intake home dose of lisinopril and hydrochlorothiazide. Cannot rule out sepsis. Medical reconciliation done for nephrotoxic drugs. Roy catheterization. Continue with normal saline at 75 cc/h. We will discontinue fluid as oral intake increases. CT abdomen pelvis negative for obstructive nephropathy. Continue to monitor daily. Leukocytosis: Cannot rule out sepsis given collection found on CT scan. Lactate normal, CSF study negative for any signs of infection, Pro-Davin negative, UA negative, urine Legionella, bacterial antigen negative for any signs of infection. MRI results appreciated. Found to have a possible large abscess versus hematoma. Plan for OR washout today. We will request the OR cultures. For now all cultures including CSF and blood negative. For now start patient on broad-spectrum antibiotics with vancomycin and Zosyn. Will de-escalate as per clinical picture. Poor oral intake: Secondary to nausea and difficulty swallowing. CT neck does show pharyngeal edema, but no mass or collection. Airway patent. Most likely secondary to mass-effect from large collection Flonase, cephacol. Modified barium swallow negative for any signs of aspiration or difficulty in swallowing. MRI should help with any obstruction. Full liquid diet. Nausea can be 2/2 to VIOLET vs lithium toxicity. Zofran as needed. IVF. Monitor lithium level Q48 hr [place] toxicity: Last dose on 01/14. 1.6 today. Coming down but still elevated. Continue to monitor on tele. Will restart lithium once lithium levels back to normal as patient's kidney functions have normalized. [place] level Q48 hr. Obstructive sleep apnea: Continuing home CPAP. Analgesia: Morphine as needed, Tylenol as needed Glycemic control: Check A1c Nutrition: Full liquid diet, CODE STATUS: Full code PUD prophylaxis: Pepcid DVT prophylaxis: Heparin 5000 every 12 hourly Continue with ICU care This documentation was created by [employer] extrusion die corrector software. Every effort was made to ensure accuracy of extrusion die corrector. Any obvious errors or omissions should be clarified with the author of the document. Attestations Medical Necessity Statement*: Requires further hospitalization large abscess versus hematoma at surgical site from recent cervical fusion, poor oral intake Time Spent in Patient Care: Greater than 35 minutes Coding Level of Care Code Acute Material Control Specialist for Chg Fwd Diagnoses Status post cervical spinal fusion Z98.1 VIOLET (acute kidney injury) N17.[address] [place] intoxication T56.891A Leukocytosis D72.829 Dehydration E86.0 Nausea R11.0 Difficulty in swallowing R13.10 Cervical spondylosis with myelopathy M47.12 Obstructive sleep apnea G47.33 CPAP (continuous positive airway pressure) dependence Z99.89
--- NOTE | 2022-01-23 14:21 | P.OP_ITS ---
Operative Report Date of procedure: January 23, 2022 Pre-op diagnosis: Preop Diagnosis Hematoma posterior cervical spine; screw failure Post-op diagnosis: same Procedure done: 1. Evacuation of hematoma 2. Removal of screw (hardware); placement of new C2 screw Pathology: cultures sent Surgeon: Aniket Maher Safety Engineer Pressure Vessels: Michel Monsivais Safety Engineer Pressure Vessels: The surgical product sales consultant, Michel Monsivais, PAC was needed for his expertise under the microscope. He was important and necessary throughout the procedure to complete in a safe and timely manner. He assisted with patient positioning prepping and draping tissue retraction suctioning of the operative field protection of the dural sac and tissue closure Estimated blood loss (mL): 10 Procedure: 1. Evacuation of hematoma 2. Removal of screw (hardware); placement of new C2 screw Patient brought the operative after undergoing anesthesia was placed in the prone position. All areas appear well-padded patient was prepped in room fashion. Skin incision made using previous skin incision posteriorly. Once the fascia was split large hematoma was identified cerebral retractors were placed hematoma was evacuated and irrigated. The hematoma was taken down and bone was scraped with curettes rongeurs. The tissue scraped bleeding tissue. And hematoma was removed. This tissue was then sent for cultures aerobic and anaerobic. Next attention was then brought to the screws were broken into the joint. The screws caps were removed. And the rohini was removed from the right side. The C2 screw that was presently broken through the lateral mass into the joint was removed. Drill was then brought in and drilled slightly above the previous hole. A nodule was then used to drill to 12 mm. In the process. This started receiving guidance. And a size 14 posterior was placed. Next the rohini was reattached from C2 down to T2. Caps were placed and torqued and locked into position. The wound was then again irrigated once the irrigation was completed and then the wound was closed in layered fashion with Vicryl and nylon suture. Sterile d ressings were applied patient was transferred to the PACU in stable condition.
[2022-01-23] MEDS: HYDROmorphone 1 mg/mL INJ 1 mL 0.5 MG IVP (15:13)
--- NOTE | 2022-01-23 15:32 | PC.NURSE ---
PT ARRIVED BACK TO UNIT FROM RECOVERY AT APPROXIMATELY 1445. UPON ASSESSMENT THIS NURSE NOTICED PT TO HAVE A LUMP ON HIS NECK AT THE TRACHEA SITE. LUMP APPEARED TO BE DEVIATED TO THE R SLIGHTY. PT ALSO APPEARED TO BE IN SOME RESPIRATORY DISTRESS. NECK IS SOFT AND PALPABLE. PT SQUIRMING AROUND IN BED, AND LOOKING AROUND THOUGH HE WAS IN DISTRESS. DR RYAN CALLED TO COME ASSESS PT. DR WILHELM WAS ALSO CALLED AND NOTIFIED OF PTS ACTIONS. DR RYAN AND DR DIAZ BOTH IN TO ASSESS PT AT APPROXIMATELY 1500 AND DO NOT BELIEVE PT TO BE IN ANY SORT OF DISTRESS NOR THE LUMP TO BE OF CONCERN. DR DIAZ BELIEVES IT IS ANESTHESIA RELATED AND THAT PT IS TRYING TO WAKE UP AND RECOVER FROM SEDATION. NO FURTHER ORDERS OR CONCERNS GIVEN FROM EITHER PHYSICIAN. DR WILHELM IN TO SEE PT WELL. NEW ORDERS GIVEN AND FOLLOWED OUT BY THIS NURSE. WILL CONTINUE TO MONITOR. PT IS CURRENTLY RESTING IN BED AND APPEARS TO BE COMFORTABLE. CURRENT VITALS ARE HEART RATE 75, BLOOD PRESSURE 108/70, RESPIRATIONS 7, O2 AT 100%. PT IS ON CPAP. CONTINUING TO MONITOR.
[2022-01-23 15:51] LABS: Basophils # 0.1 10^3/uL (0.0-0.1); Basophils % 0.6 %; Eosinophils # 0.2 10^3/uL (0.0-0.8); Eosinophils % 1.1 %; Hemoglobin 11.4 g/dL (11.7-16.6); Lymphocytes # 1.6 10^3/uL (0.8-4.8); Lymphocytes % 8.5 %; Mean Corpuscular HGB Conc 31.7 g/dL (30.0-36.0); Mean Corpuscular Hemoglobin 29.2 pg (28.0-34.0); Mean Corpuscular Volume 92.3 fl (80-94); Mean Platelet Volume 11.5 fL (7.4-10.4); Monocytes # 0.6 10^3/uL (0.2-0.9); Monocytes % 3.3 %; Neutrophils # 15.94 10^3/uL (1.8-7.7); Neutrophils % 85.1 %; Nucleated Red Blood Cells % 0 %; Platelet Count 415 10^3/cmm (130-400); Red Cell Distribution Width 12.8 % (12.1-15.1); White Blood Count 18.7 10^3/uL (4.0-10.0)
[2022-01-23] MEDS: vancomycin 1,500 MG/300 ML PIGGYBACK 200 MG IV ×2 (16:04→22:18)
[2022-01-23] MEDS: sodium chloride 0.9% 1,000 ML 999 ML IV (16:04)
[2022-01-23] MEDS: hydrocortisone 100 mg/2 mL SDV IVP (16:06)
--- NOTE | 2022-01-23 18:24 | ANE.PACU2 ---
Inpatient post-anesthesia follow up: Airway intact: Yes Vital signs: Temperature 96.6 F Pulse Rate 78 Respiratory Rate 10 Blood Pressure 120/84 Pulse Oximetry 100 Oxygen Delivery Me thod CPAP Oxygen Flow Rate 2 Fraction of Inspir ed Oxygen Hydration adequate: Yes Nausea and vomiting: No Pain level: 3 Mental status: Altered (sedate) Additional Comments: Back to ICU12, pretty sedate, placed on CPAP
--- NOTE | 2022-01-23 18:39 | PC.NURSE ---
PT HAS HAD AN UNEVENTFUL SHIFT. PT IS BECOMING MORE ALERT. VITALS CONTINUE TO REMAIN WNL. PT DOES NOT COMPLAIN OF ANY PAIN NOR DOES HE LOOK TO BE IN ANY DISCOMFORT. CONTINUING TO MONITOR.
[2022-01-24] VITALS (41 sets, daily range): BP systolic 108–176; BP diastolic 65–127; PULSE 81–101; RESP 13–27; TEMP 36.8–37.1; O2SAT 92–100; BMI 29.5
[2022-01-24] MEDS: piperacillin-tazobactam 3.375 GM in sodium chloride 0.9% (plus) 50 ML IV ×3 (01:12→17:10)
--- NOTE | 2022-01-24 04:00 | PC.NURSE ---
Agitation While attempting to turn patient, patient became very agitated stating loudly Catch the paper snatcher. I know he got away. Bring him to me, in addition to I know I haven't talked to my family. I know I haven't. Have you? Patient moving legs and speaking loudly using profanity. Verbal de-escalation attempted; patient able to be redirected for brief periods at a time, giving an apology each time. Pain assessed, patient states No, I'm not hurting. Patient refused position change. Drink offered. Dr. Goncalves contacted; telephone order received for a lithium level check and 1 mg Haldol IM PRN Q6H for agitation. Verbal de-escalation to be used prior to medication.
[2022-01-24 05:37] LABS: Basophils # 0.1 10^3/uL (0.0-0.1); Basophils % 0.5 %; Eosinophils # 0.1 10^3/uL (0.0-0.8); Eosinophils % 0.4 %; Hematocrit 33.1 % (42.0-52.0); Hemoglobin 10.5 g/dL (11.7-16.6); Lymphocytes # 1.6 10^3/uL (0.8-4.8); Lymphocytes % 9.7 %; Mean Corpuscular HGB Conc 31.7 g/dL (30.0-36.0); Mean Corpuscular Hemoglobin 29.1 pg (28.0-34.0); Mean Corpuscular Volume 91.7 fl (80-94); Mean Platelet Volume 11.7 fL (7.4-10.4); Monocytes # 1.3 10^3/uL (0.2-0.9); Monocytes % 7.7 %; Neutrophils # 13.66 10^3/uL (1.8-7.7); Nucleated Red Blood Cells % 0 %; Platelet Count 397 10^3/cmm (130-400); Red Blood Count 3.61 10^6/uL (4.1-5.3); White Blood Count 16.9 10^3/uL (4.0-10.0)
[2022-01-24 06:03] LABS: Alanine Aminotransferase < 5 U/L (0-41); Albumin Level 3.6 g/dL (3.5-5.2); Alkaline Phosphatase 213 U/L (40-130); Anion Gap 19.1 (5-19); Aspartate Amino Transferase 6 U/L (0-40); Blood Urea Nitrogen 12 mg/dL (6-20); Carbon Dioxide 20 mmol/L (22-29); Chloride 108 mmol/L (98-107); Globulin 2.8 g/dL (1.3-4.6); Glomerular Filtration Rate 87.9 mL/min (90-130); Glucose 96 mg/dL (65-115); Osmolality Calculated 296 mOsm/kg (285-295); Potassium 4.1 mmol/L (3.5-5.1); Sodium 143 mmol/L (136-145); Total Bilirubin 0.2 mg/dL (0.15-1.2); Total Protein 6.4 g/dL (6.6-8.7)
[2022-01-24] MEDS: vancomycin 1,500 MG/300 ML PIGGYBACK 200 MG IV (06:12)
[2022-01-24] MEDS: sodium chloride 0.9% 1,000 ML 75 ML IV ×2 (06:12→19:22)
[2022-01-24 07:01] LABS: Lithium 1.2 mmol/L (0.6-1.2)
[2022-01-24] MEDS: haloperidol inj 5 mg/mL INJ 1 mL 1 MG IM ×3 (07:14→21:30)
--- NOTE | 2022-01-24 08:08 | PC.SOCIAL ---
IMM not updated. Patient doesn't have MCR listed so CM verified with Echo from [facility], she states that no MCR was found for patient.
[2022-01-24] MEDS: fluoxetine 10 mg Capsule 30 MG PO (08:28)
[2022-01-24] MEDS: famotidine 20 mg/2 mL INJ IVP ×2 (08:29→21:35)
[2022-01-24] MEDS: fluticasone nasal spray 16gm Btl 1 SPRAY NASAL ×2 (08:29→17:11)
[2022-01-24] MEDS: ferrous gluconate 324 mg Tablet PO ×2 (08:29→17:10)
[2022-01-24] MEDS: docusate sodium 100 mg Capsule PO ×2 (08:29→17:10)
--- NOTE | 2022-01-24 12:52 | P.PN_ITS ---
Subjective Subjective: POD 1 Patient very somnolent this morning. Moving both arms and legs without any increased pain. Vitals/I&O/Wt Last Vital Signs Temp 98.2 F 01/24/22 04:00 Pulse 89 01/24/22 08:00 Resp 14 01/24/22 08:00 BP 120/69 01/24/22 07:00 Pulse Ox 98 01/24/22 08:00 O2 Del Method 01/24/22 08:00 O2 Flow Rate 2 01/22/22 20:00 01/23/22 01/24/22 01/24/22 22:59 06:59 14:59 Intake Total 2312.917 / 2662.917 570 / 3232.917 352.5 / 352.5 Output Total 500 / 750 1173 / 1923 Balance 1812.917 / 1912.917 -603 / 1309.917 352.5 / 352.5 Weight last 48 hrs Weight 236 lb Weight 255 lb Physical Exam Narrative: Hemovac drain intact. Moving both upper and lower extremities slowly. Patient is very somnolent with continued [place] collar use. Urinary Catheter Management: Coude: Cath Placed During This Visit: yes Reason for Continuing Indwelling Catheter: Accurate Measurement of Urinary Output in Critically Ill Patients Urinary Catheter Date of Insertion: 01/21/22 Urinary Catheter Time of Insertion: 17:05 Data : 01/24/22 04:15 01/24/22 04:15 Micro: Microbiology 01/21/22 19:20 Gram Stain - Final Cerebrospinal Fluid CSF Culture - Final A&P Assessment and plan (1) Status post cervical spinal fusion: Continue Hemovac drain continue [place] collar. Physical therapy to evaluate. Status: Acute Attestations Medical Necessity Statement*: Defer to medical team Coding Level of Care Code Acute Retoucher for Chg Fwd Diagnoses Status post cervical spinal fusion Z98.1
--- NOTE | 2022-01-24 13:01 | PM.PN ---
Subjective Subjective: No events overnight. Patient was on his home CPAP overnight. On my examination is on room air. On visiting with him his eyes was closed but he wakes up and responds appropriately on verbal communication but is slow to respond. Mother is at bedside. Denies any nausea vomiting, headache, difficulty swallowing. Wants to try oral intake today. Vitals/I&O/Wt Last Vital Signs Temp 98.2 F 01/24/22 04:00 Pulse 89 01/24/22 08:00 Resp 14 01/24/22 08:00 BP 120/69 01/24/22 07:00 Pulse Ox 98 01/24/22 08:00 O2 Del Method 01/24/22 08:00 O2 Flow Rate 2 01/22/22 20:00 01/23/22 01/24/22 01/24/22 22:59 06:59 14:59 Intake Total 2312.917 / 2662.917 570 / 3232.917 352.5 / 352.5 Output Total 500 / 750 1173 / 1923 Balance 1812.917 / 1912.917 -603 / 1309.917 352.5 / 352.5 Weight last 48 hrs Weight 107.048 kg Weight 115.666 kg Physical Exam Narrative: EXAM NARRATIVE: General: No acute distress, AO x3, sick appearing, neck brace, HEENT: PERRLA, pupils bilaterally equal and reactive Chest: Bilateral normal vesicular breath sounds, good equal air entry CVS: S1-S2 regular, no murmurs, no tachycardia, no gallops, no rubs Abdomen: Soft, nontender mildly distended, no organomegaly, bowel sounds present, morbidly obese Neuro: No focal deficits, no facial deformity, AO x3, power 5/5 in all limbs Urinary Catheter Management: Coude: Cath Placed During This Visit: yes Reason for Continuing Indwelling Catheter: Accurate Measurement of Urinary Output in Critically Ill Patients Urinary Catheter Date of Insertion: 01/21/22 Urinary Catheter Time of Insertion: 17:05 Data : 01/24/22 04:15 01/24/22 04:15 Micro: Microbiology 01/21/22 19:20 Gram Stain - Final Cerebrospinal Fluid CSF Culture - Final A&P Assessment and plan (1) Status post cervical spinal fusion: Status: Acute (2) VIOLET (acute kidney injury): Status: Acute (3) [place] intoxication: Status: Acute (4) Leukocytosis: Status: Acute (5) Dehydration: Status: Acute (6) Nausea: Status: Acute (7) Difficulty in swallowing: Status: Acute (8) Cervical spondylosis with myelopathy: Status: Acute (9) Obstructive sleep apnea: Status: Acute (10) CPAP (continuous positive airway pressure) dependence: Status: Acute Plan 52 gentleman with recent history of cervical fusion within the last 3 weeks presents with poor oral intake, generalized weakness and myalgias found to be in VIOLET along with leukocytosis. Postoperative abscess/hematoma collection: Post evacuation day 1. OR cultures awaited. Blood culture, CSF cultures so far negative. Appreciate Dr. Maher's recommendation. MRSA negative. Stop vancomycin. Continue with Zosyn for now. We will follow-up over culture results and change or discontinue antibiotics accordingly. If cultures remain negative for next 72 to 96 hours will give us trial of discontinuation of antibiotics. Lactate normal, CSF study negative for any signs of infection, Pro-Davin negative, UA negative, urine Legionella, bacterial antigen negative for any signs of infection. Acute kidney injury: Resolved. Good urine output. Most likely secondary to dehydration from poor oral intake home dose of lisinopril and hydrochlorothiazide. Cannot rule out sepsis. Medical reconciliation done for nephrotoxic drugs. Roy catheterization. Continue with normal saline at 75 cc/h. We will discontinue fluid as oral intake increases. CT abdomen pelvis negative for obstructive nephropathy. Continue to monitor daily. Poor oral intake: Most likely secondary to postoperative changes and mass-effect from large hematoma collection. Nausea resolved. Modified barium swallow negative for any issues with swallowing. Encourage patient to drink and eat more. Full liquid diet. Zofran as needed. Bipolar disorder: On review of medication list from his PCP. Medications changed. Change Prozac 10 mg oral daily. Start baclofen 10 mg 3 times daily. Start on lithium 450 mg twice daily. [place] toxicity: Last dose on 01/14. Resolved. Continue to monitor on tele. Will recheck lithium levels in 48 hours. Obstructive sleep apnea: Continuing home CPAP. Encourage patient to sit out of bed to chair for as long as possible. PT/OT evaluation. Encourage for increase oral intake. Analgesia: [place] 5 mg every 4 hours as needed, Tylenol as needed Glycemic control: Not needed Nutrition: Full liquid diet, CODE STATUS: Full code PUD prophylaxis: Pepcid DVT prophylaxis: SCDs. Discharge planning: Discussed in detail with patient along with DPOA/life partner Ms. Li. We discussed that given second extensive surgery within the last 1 month patient is at high risk of readmission, not improving or deteriorating further. We discussed options of discharge to SNF for short-term for acute rehab versus home health. Patient at first was declining rehab but after talking to his life partner is agreeable for now. Case management alerted. Continue with ICU care This documentation was created by [email or web address] cardiac cath technician software. Every effort was made to ensure accuracy of cardiac cath technician. Any obvious errors or omissions should be clarified with the author of the document. Attestations Medical Necessity Statement*: Requires further hospitalization for management of postoperative collection/abscess versus hematoma leading to difficulty swallowing, acute kidney injury lithium toxicity Time Spent in Patient Care: Greater than 35 minutes Coding Level of Care Code Acute Geodetic Engineer for Chg Fwd Diagnoses Status post cervical spinal fusion Z98.1 VIOLET (acute kidney injury) N17.9 [place] intoxication T56.891A Leukocytosis D72.829 Dehydration E86.0 Nausea R11.0 Difficulty in swallowing R13.10 Cervical spondylosis with myelopathy M47.12 Obstructive sleep apnea G47.33 CPAP (continuous positive airway pressure) dependence Z99.89
[2022-01-24 14:31] LABS: Vancomycin Trough 27.5 ug/mL (10-15)
[2022-01-24] MEDS: baclofen 10 mg Tablet PO ×2 (15:16→21:29)
[2022-01-24] MEDS: lithium carbonate 150 mg Capsule 450 MG PO (17:10)
[2022-01-24] MEDS: HYDROcodone-acetaminophen 5-325 mg Tablet 1 TAB PO ×2 (17:41→21:29)
--- NOTE | 2022-01-24 18:16 | PC.NURSE ---
Posterior neck drain emptied of 8ml Serosanguineous output. Drain removed per Dr. Maher's verbal order.
[2022-01-25] VITALS (10 sets, daily range): BP systolic 107–150; BP diastolic 75–89; PULSE 72–98; RESP 18–22; TEMP 36.3–36.8; O2SAT 96–100
[2022-01-25] MEDS: piperacillin-tazobactam 3.375 GM in sodium chloride 0.9% (plus) 50 ML IV ×3 (01:42→18:17)
[2022-01-25] MEDS: haloperidol inj 5 mg/mL INJ 1 mL 1 MG IM (03:31)
--- NOTE | 2022-01-25 03:36 | PC.NURSE ---
patient again trying to climb out of bed, pulling on morin and IV, redirections unsuccessful, patient removing Cpap mask, haldol given.
[2022-01-25 06:10] LABS: Basophils # 0.1 10^3/uL (0.0-0.1); Basophils % 0.5 %; Eosinophils # 0.5 10^3/uL (0.0-0.8); Eosinophils % 4.4 %; Hematocrit 27.7 % (42.0-52.0); Lymphocytes % 18.8 %; Mean Corpuscular HGB Conc 32.5 g/dL (30.0-36.0); Mean Corpuscular Hemoglobin 29.1 pg (28.0-34.0); Mean Corpuscular Volume 89.6 fl (80-94); Mean Platelet Volume 11.3 fL (7.4-10.4); Monocytes % 9.2 %; Neutrophils # 7.03 10^3/uL (1.8-7.7); Neutrophils % 66.4 %; Nucleated Red Blood Cells % 0 %; Platelet Count 293 10^3/cmm (130-400); Red Blood Count 3.09 10^6/uL (4.1-5.3); Red Cell Distribution Width 13.1 % (12.1-15.1); White Blood Count 10.6 10^3/uL (4.0-10.0)
[2022-01-25 06:44] LABS: Alanine Aminotransferase 6 U/L (0-41); Alkaline Phosphatase 162 U/L (40-130); Anion Gap 11.4 (5-19); Aspartate Amino Transferase 6 U/L (0-40); Blood Urea Nitrogen 8 mg/dL (6-20); Calcium 9.2 mg/dL (8.5-10.5); Carbon Dioxide 21 mmol/L (22-29); Chloride 110 mmol/L (98-107); Globulin 2.4 g/dL (1.3-4.6); Glomerular Filtration Rate 100.7 mL/min (90-130); Glucose 109 mg/dL (65-115); Osmolality Calculated 287 mOsm/kg (285-295); Potassium 3.4 mmol/L (3.5-5.1); Sodium 139 mmol/L (136-145); Total Bilirubin 0.2 mg/dL (0.15-1.2); Total Protein 5.4 g/dL (6.6-8.7)
[2022-01-25 06:45] LABS: Vancomycin Random 12.1 ug/mL (20.0-40.0)
--- NOTE | 2022-01-25 06:50 | P.PN_ITS ---
Subjective Subjective: POD 2 Patient is confused this morning somewhat agitated. Moving his arms and legs better. Vitals/I&O/Wt Last Vital Signs Temp 97.3 F L 01/25/22 04:00 Pulse 72 01/25/22 06:00 Resp 22 H 01/25/22 04:00 BP 107/78 01/25/22 04:00 Pulse Ox 99 01/25/22 04:00 O2 Del Method 01/24/22 20:00 O2 Flow Rate 2 01/22/22 20:00 01/24/22 01/24/22 01/25/22 14:59 22:59 06:59 Intake Total 1392.5 / 1392.5 1330 / 2722.5 50 / 2772.5 Output Total 1058 / 1058 500 / 1558 Balance 1392.5 / 1392.5 272 / 1664.5 -450 / 1214.5 Weight last 48 hrs Weight 259 lb 9.6 oz Weight 236 lb Physical Exam Narrative: Patient is alert opens eyes makes eye contact follows directions but is confused to place and time. good general appearance. Nontender with palpation about the incisional site. Incision appears to be clean and dry without signs of erythema or drainage. No signs of infection. Good motor strength throughout both upper extremities. Appears to fire in all motor groups with 5/5 strength. Hands are warm good cap refill in all digits. Normal sensation to light touch in all dermatomal areas. Urinary Catheter Management: Coude: Cath Placed During This Visit: yes Reason for Continuing Indwelling Catheter: Acute Urinary Retention or Obstruction Urinary Catheter Date of Insertion: 01/21/22 Urinary Catheter Time of Insertion: 17:05 Data : 01/25/22 05:55 01/25/22 05:55 Micro: Microbiology 01/23/22 13:21 Gram Stain - Final Neck Anaerobic Culture - Preliminary Tissue Culture - Preliminary 01/21/22 19:20 Gram Stain - Final Cerebrospinal Fluid CSF Culture - Final A&P Assessment and plan (1) Status post cervical spinal fusion: Patient is being treated with Haldol due to confusion and agitation. Have physical therapy evaluate and mobilize if the patient is stable on his feet. From an orthopedic standpoint he is ready for discharge when medically stable. Dressing was changed Hemovac drain was discontinued. Okay from orthopedic standpoint to discontinue the Roy catheter when approved by the medical team. Continue incentive spirometry for pulmonary toilet. Status: Acute Attestations Medical Necessity Statement*: Defer to medical team Coding Level of Care Code Acute Credit Administration Specialist for Chg Fwd Diagnoses Status post cervical spinal fusion Z98.1
[2022-01-25] MEDS: docusate sodium 100 mg Capsule PO (08:21)
[2022-01-25] MEDS: ferrous gluconate 324 mg Tablet PO ×2 (08:21→18:17)
[2022-01-25] MEDS: fluoxetine 10 mg Capsule PO (08:21)
[2022-01-25] MEDS: baclofen 10 mg Tablet PO ×3 (08:21→22:13)
[2022-01-25] MEDS: famotidine 20 mg/2 mL INJ IVP ×2 (08:21→19:54)
[2022-01-25] MEDS: fluticasone nasal spray 16gm Btl 1 SPRAY NASAL ×2 (08:23→18:17)
[2022-01-25] MEDS: lithium carbonate 150 mg Capsule 450 MG PO (08:23)
[2022-01-25] MEDS: sodium chloride 0.9% 1,000 ML 75 ML IV (10:29)
--- NOTE | 2022-01-25 12:43 | PM.PN ---
Subjective Subjective: No acute vents overnight. Patient seen on [facility] floor today. On examination laying in bed, sleeping but arousable to verbal stimulus. Wakes up to have complete conversation. AOx3. States he had breakfast today without any nausea or vomiting. Agreeable for trial of soft diet, trial to increase oral intake and physical therapy. Vitals/I&O/Wt Last Vital Signs Temp 98.2 F 01/25/22 11:17 Pulse 87 01/25/22 11:17 Resp 18 01/25/22 11:17 BP 131/75 01/25/22 11:17 Pulse Ox 97 01/25/22 11:17 O2 Del Method 01/25/22 11:17 O2 Flow Rate 2 01/22/22 20:00 01/24/22 01/25/22 01/25/22 22:59 06:59 14:59 Intake Total 1330 / 2722.5 50 / 2772.5 1480 / 1480 Output Total 1058 / 1058 500 / 1558 200 / 200 Balance 272 / 1664.5 -450 / 1214.5 1280 / 1280 Weight last 48 hrs Weight 117.753 kg Weight 107.048 kg Physical Exam Narrative: EXAM NARRATIVE: General: No acute distress, AO x3, sick appearing, neck brace, HEENT: PERRLA, pupils bilaterally equal and reactive Chest: Bilateral normal vesicular breath sounds, good equal air entry CVS: S1-S2 regular, no murmurs, no tachycardia, no gallops, no rubs Abdomen: Soft, nontender mildly distended, no organomegaly, bowel sounds present, morbidly obese Neuro: No focal deficits, no facial deformity, AO x3, power 5/5 in all limbs Urinary Catheter Management: Coude: Cath Placed During This Visit: yes, but has since been removed by the nurse Reason for Continuing Indwelling Catheter: Decision to DC Catheter Urinary Catheter Date of Insertion: 01/21/22 Urinary Catheter Time of Insertion: 17:05 Date Urinary Catheter Removed: 01/25/22 Time Urinary Catheter Discontinued: 07:26 Data : 01/25/22 05:55 01/25/22 05:55 Micro: Microbiology 01/23/22 13:21 Gram Stain - Final Neck Anaerobic Culture - Preliminary Tissue Culture - Preliminary 01/21/22 19:20 Gram Stain - Final Cerebrospinal Fluid CSF Culture - Final A&P Assessment and plan (1) Status post cervical spinal fusion: Status: Acute (2) VIOLET (acute kidney injury): Status: Acute (3) [place] intoxication: Status: Acute (4) Leukocytosis: Status: Acute (5) Dehydration: Status: Acute (6) Nausea: Status: Acute (7) Difficulty in swallowing: Status: Acute (8) Cervical spondylosis with myelopathy: Status: Acute (9) Obstructive sleep apnea: Status: Acute (10) CPAP (continuous positive airway pressure) dependence: Status: Acute Plan 52 gentleman with recent history of cervical fusion within the last 3 weeks presents with poor oral intake, generalized weakness and myalgias found to be in VIOLET along with leukocytosis. Postoperative abscess/hematoma collection: Post evacuation day 1. OR cultures awaited. Blood culture, CSF cultures so far negative. Appreciate Dr. Maher's recommendation. MRSA negative. Stop vancomycin. Continue with Zosyn for now. We will follow-up over culture results and change or discontinue antibiotics accordingly. If cultures remain negative for next 72 to 96 hours will give us trial of discontinuation of antibiotics. Acute kidney injury: Resolved. Good urine output. Most likely secondary to dehydration from poor oral intake home dose of lisinopril and hydrochlorothiazide. Cannot rule out sepsis. Medical reconciliation done for nephrotoxic drugs. Roy catheterization. Continue with normal saline at 75 cc/h. We will discontinue fluid as oral intake increases. CT abdomen pelvis negative for obstructive nephropathy. Continue to monitor daily. Poor oral intake: Most likely secondary to postoperative changes and mass-effect from large hematoma collection. Nausea resolved. Modified barium swallow negative for any issues with swallowing. Encourage patient to drink and eat more. Full liquid diet. Zofran as needed. Bipolar disorder: On review of medication list from his PCP. Medications changed. Change Prozac 10 mg oral daily. Start baclofen 10 mg 3 times daily. Takes 900 mg lithium twice daily daily. Increase to 600 mg twice daily today. [place] toxicity: Last dose on 01/14. Resolved. Continue to monitor on tele. Will recheck lithium levels in 48 hours. Obstructive sleep apnea: Continuing home CPAP. Encourage patient to sit out of bed to chair for as long as possible. PT/OT evaluation. Encourage for increase oral intake. Analgesia: [place] 5 mg every 4 hours as needed, Tylenol as needed Glycemic control: Not needed Nutrition: Advance to GI soft diet CODE STATUS: Full code PUD prophylaxis: Pepcid DVT prophylaxis: SCDs. Discharge planning: PT marilin sharif. Plan to possible discharge to acute rehab versus home with home health. Continue with [facility] care. This documentation was created by [employer] electro winning operator software. Every effort was made to ensure accuracy of electro winning operator. Any obvious errors or omissions should be clarified with the author of the document. Plan for today: White count trending down. Continue Zosyn. Follow cultures. Will discontinue Zosyn if cultures remain negative follow-up 96 hours. Continue home dose of Prozac, baclofen. Increase lithium to 600 mg twice daily. Repeat lithium level in AM. Continue fluids for 1 more day. Will discontinue if patient's oral intake is improving. Out of bed to chair. GI soft diet. PT. Trial of placement to acute rehab. Attestations Medical Necessity Statement*: Requires further hospitalization for management of postoperative hematoma collection while infection is ruled out, resolving lithium toxicity and acute kidney injury while safe discharge planning is sought Time Spent in Patient Care: Greater than 35 minutes Coding Level of Care Code Acute Educational Administration Teacher for Chg Fwd Diagnoses Status post cervical spinal fusion Z98.1 VIOLET (acute kidney injury) N17.9 [place] intoxication T56.891A Leukocytosis D72.829 Dehydration E86.0 Nausea R11.0 Difficulty in swallowing R13.10 Cervical spondylosis with myelopathy M47.12 Obstructive sleep apnea G47.33 CPAP (continuous positive airway pressure) dependence Z99.89
[2022-01-25] MEDS: lithium carbonate 300 mg Capsule 600 MG PO (18:20)
[2022-01-26] VITALS (7 sets, daily range): BP systolic 137–172; BP diastolic 80–112; PULSE 67–96; RESP 10–18; TEMP 36.3–36.7; O2SAT 95–99; BMI 32.5
[2022-01-26] MEDS: piperacillin-tazobactam 3.375 GM in sodium chloride 0.9% (plus) 50 ML IV (03:23)
[2022-01-26] MEDS: ondansetron 2 mg/ML SDV 2 mL 4 MG IVP ×2 (03:39→06:24)
[2022-01-26] MEDS: sodium chloride 0.9% 1,000 ML 75 ML IV (03:54)
[2022-01-26 06:48] LABS: Alanine Aminotransferase 8 U/L (0-41); Albumin Level 3.5 g/dL (3.5-5.2); Alkaline Phosphatase 170 U/L (40-130); Anion Gap 15.9 (5-19); Blood Urea Nitrogen 5 mg/dL (6-20); Calcium 8.9 mg/dL (8.5-10.5); Carbon Dioxide 19 mmol/L (22-29); Chloride 110 mmol/L (98-107); Globulin 1.9 g/dL (1.3-4.6); Glomerular Filtration Rate 140.4 mL/min (90-130); Glucose 112 mg/dL (65-115); Osmolality Calculated 290 mOsm/kg (285-295); Potassium 3.9 mmol/L (3.5-5.1); Sodium 141 mmol/L (136-145); Total Bilirubin 0.3 mg/dL (0.15-1.2); Total Protein 5.4 g/dL (6.6-8.7)
[2022-01-26 06:49] LABS: Aspartate Amino Transferase 15 U/L (0-40)
[2022-01-26 06:51] LABS: Lithium 0.8 mmol/L (0.6-1.2)
[2022-01-26] MEDS: famotidine 20 mg/2 mL INJ IVP ×2 (09:51→21:07)
[2022-01-26] MEDS: ferrous gluconate 324 mg Tablet PO ×2 (09:54→17:30)
[2022-01-26] MEDS: docusate sodium 100 mg Capsule PO ×2 (09:54→17:30)
[2022-01-26] MEDS: lithium carbonate 300 mg Capsule 600 MG PO ×2 (09:54→20:37)
[2022-01-26] MEDS: fluoxetine 10 mg Capsule PO (09:54)
[2022-01-26] MEDS: baclofen 10 mg Tablet PO ×3 (09:54→20:34)
[2022-01-26] MEDS: fluticasone nasal spray 16gm Btl 1 SPRAY NASAL ×2 (09:55→17:29)
--- NOTE | 2022-01-26 11:38 | PC.NURSE ---
Zeeshan not started this am due to last one still running upon this nurse arrival.
[2022-01-26 13:14] LABS: Basophils # 0.1 10^3/uL (0.0-0.1); Basophils % 0.4 %; Eosinophils # 0.2 10^3/uL (0.0-0.8); Eosinophils % 2.1 %; Hematocrit 29.6 % (42.0-52.0); Hemoglobin 9.9 g/dL (11.7-16.6); Lymphocytes # 1.3 10^3/uL (0.8-4.8); Lymphocytes % 11.7 %; Mean Corpuscular HGB Conc 33.4 g/dL (30.0-36.0); Mean Corpuscular Hemoglobin 29.4 pg (28.0-34.0); Mean Corpuscular Volume 87.8 fl (80-94); Mean Platelet Volume 11.3 fL (7.4-10.4); Monocytes % 8.3 %; Neutrophils # 8.76 10^3/uL (1.8-7.7); Neutrophils % 76.7 %; Nucleated Red Blood Cells % 0 %; Platelet Count 333 10^3/cmm (130-400); Red Blood Count 3.37 10^6/uL (4.1-5.3); Red Cell Distribution Width 12.9 % (12.1-15.1); White Blood Count 11.4 10^3/uL (4.0-10.0)
--- NOTE | 2022-01-26 13:33 | PM.PN ---
Subjective Subjective: No acute events overnight. Patient denies any nausea, vomiting, headache. Seen with family at bedside. Patient very emotional today during examination. Tearful. As per the family at bedside patient has been having episodes of being emotional since morning. States this happens to him with bipolar disorder. Patient himself is awake and alert. Denies any complaints. Denies any pain. Denies anything bothering him. States he feels safe. Vitals/I&O/Wt Last Vital Signs Temp 97.5 F L 01/26/22 12:00 Pulse 84 01/26/22 12:00 Resp 10 L 01/26/22 12:00 BP 156/100 01/26/22 12:00 Pulse Ox 99 01/26/22 12:00 O2 Del Method 01/26/22 12:00 O2 Flow Rate 2 01/26/22 08:00 01/25/22 01/26/22 01/26/22 22:59 06:59 14:59 Intake Total 50 / 1530 1250 / 2780 50 / 50 Output Total 550 / 750 1150 / 1900 400 / 400 Balance -500 / 780 100 / 880 -350 / -350 Weight last 48 hrs Weight 117.934 kg Weight 117.934 kg Weight 117.753 kg Physical Exam Narrative: EXAM NARRATIVE: General: No acute distress, AO x3, appearing better today, emotional, neck brace, HEENT: PERRLA, pupils bilaterally equal and reactive Chest: Bilateral normal vesicular breath sounds, good equal air entry CVS: S1-S2 regular, no murmurs, no tachycardia, no gallops, no rubs Abdomen: Soft, nontender mildly distended, no organomegaly, bowel sounds present, obese Neuro: No focal deficits, no facial deformity, AO x3, power 5/5 in all limbs Urinary Catheter Management: Coude: Cath Placed During This Visit: yes, but has since been removed by the nurse Reason for Continuing Indwelling Catheter: Decision to DC Catheter Urinary Catheter Date of Insertion: 01/21/22 Urinary Catheter Time of Insertion: 17:05 Date Urinary Catheter Removed: 01/25/22 Time Urinary Catheter Discontinued: 07:26 Data : 01/26/22 13:09 01/26/22 05:45 Micro: Microbiology 01/21/22 12:24 Blood Culture - Final Blood NO GROWTH AFTER 5 DAYS 01/21/22 12:20 Blood Culture - Final Blood NO GROWTH AFTER 5 DAYS 01/23/22 13:21 Gram Stain - Final Neck Anaerobic Culture - Preliminary Tissue Culture - Final A&P Assessment and plan (1) Status post cervical spinal fusion: Status: Acute (2) VIOLET (acute kidney injury): Status: Acute (3) [place] intoxication: Status: Acute (4) Leukocytosis: Status: Acute (5) Dehydration: Status: Acute (6) Nausea: Status: Acute (7) Difficulty in swallowing: Status: Acute (8) Cervical spondylosis with myelopathy: Status: Acute (9) Obstructive sleep apnea: Status: Acute (10) CPAP (continuous positive airway pressure) dependence: Status: Acute Plan 52 gentleman with recent history of cervical fusion within the last 3 weeks presents with poor oral intake, generalized weakness and myalgias found to be in VIOLET along with leukocytosis. Postoperative abscess/hematoma collection: Post evacuation day 1. OR cultures awaited. Blood culture, CSF cultures so far negative. Appreciate Dr. Maher's recommendation. MRSA negative. Stop vancomycin. Continue with Zosyn for now. We will follow-up over culture results and change or discontinue antibiotics accordingly. If cultures remain negative for next 72 to 96 hours will give us trial of discontinuation of antibiotics. Acute kidney injury: Resolved. Good urine output. Most likely secondary to dehydration from poor oral intake home dose of lisinopril and hydrochlorothiazide. Cannot rule out sepsis. Medical reconciliation done for nephrotoxic drugs. Roy catheterization. Continue with normal saline at 75 cc/h. We will discontinue fluid as oral intake increases. CT abdomen pelvis negative for obstructive nephropathy. Continue to monitor daily. Poor oral intake: Most likely secondary to postoperative changes and mass-effect from large hematoma collection. Nausea resolved. Modified barium swallow negative for any issues with swallowing. Encourage patient to drink and eat more. Full liquid diet. Zofran as needed. Bipolar disorder: On review of medication list from his PCP. Medications changed. Change Prozac 10 mg oral daily. Start baclofen 10 mg 3 times daily. Takes 900 mg lithium twice daily daily. Increase to 600 mg twice daily today. [place] toxicity: Last dose on 01/14. Resolved. Continue to monitor on tele. Will recheck lithium levels in 48 hours. Obstructive sleep apnea: Continuing home CPAP. Encourage patient to sit out of bed to chair for as long as possible. PT/OT evaluation. Encourage for increase oral intake. Analgesia: [place] 5 mg every 4 hours as needed, Tylenol as needed Glycemic control: Not needed Nutrition: Advance to GI soft diet CODE STATUS: Full code PUD prophylaxis: Pepcid DVT prophylaxis: SCDs. Discharge planning: PT eval appreciated. Plan to possible discharge to acute rehab versus home with home health. [facility]. This documentation was created by [employer] hose inspector and patcher software. Every effort was made to ensure accuracy of hose inspector and patcher. Any obvious errors or omissions should be clarified with the author of the document. Plan for today: White count continues to trend down. All the cultures including CSF, OR, blood cultures so far have remained negative. Stop antibiotics and monitor. Continue with home dose of Prozac, baclofen. [place] level appreciated. Within normal limits. Increase dose of lithium to 750 mg twice daily. Continue with GI soft diet. Continue with discharge planning of acute rehab versus home with home health. Attestations Medical Necessity Statement*: Requires further hospitalization for management of postoperative hematoma while cultures are followed, improving oral intake, lithium toxicity while lithium doses reintroduced and safe discharge planning is sought. Time Spent in Patient Care: Greater than 35 minutes Coding Level of Care Code Acute Career Advisor for Chg Fwd Diagnoses Status post cervical spinal fusion Z98.1 VIOLET (acute kidney injury) N17.9 [place] intoxication T56.891A Leukocytosis D72.829 Dehydration E86.0 Nausea R11.0 Difficulty in swallowing R13.10 Cervical spondylosis with myelopathy M47.12 Obstructive sleep apnea G47.33 CPAP (continuous positive airway pressure) dependence Z99.89
[2022-01-26] MEDS: lithium carbonate 150 mg Capsule PO (20:36)
[2022-01-27] VITALS (10 sets, daily range): BP systolic 127–176; BP diastolic 84–114; PULSE 79–103; RESP 15–20; TEMP 36.4–37; O2SAT 91–100
[2022-01-27] MEDS: ondansetron 2 mg/ML SDV 2 mL 4 MG IVP ×2 (03:00→20:45)
[2022-01-27 05:01] LABS: Basophils # 0.1 10^3/uL (0.0-0.1); Basophils % 0.4 %; Eosinophils # 0.3 10^3/uL (0.0-0.8); Eosinophils % 2.2 %; Hematocrit 30.5 % (42.0-52.0); Lymphocytes # 1.6 10^3/uL (0.8-4.8); Lymphocytes % 13.4 %; Mean Corpuscular HGB Conc 32.8 g/dL (30.0-36.0); Mean Corpuscular Volume 88.4 fl (80-94); Mean Platelet Volume 12.2 fL (7.4-10.4); Monocytes # 0.9 10^3/uL (0.2-0.9); Monocytes % 7.7 %; Neutrophils # 9.09 10^3/uL (1.8-7.7); Neutrophils % 75.4 %; Nucleated Red Blood Cells % 0 %; Platelet Count 365 10^3/cmm (130-400); Red Blood Count 3.45 10^6/uL (4.1-5.3); Red Cell Distribution Width 13.1 % (12.1-15.1); White Blood Count 12.1 10^3/uL (4.0-10.0)
[2022-01-27 05:25] LABS: Alanine Aminotransferase 10 U/L (0-41); Albumin Level 3.7 g/dL (3.5-5.2); Alkaline Phosphatase 175 U/L (40-130); Aspartate Amino Transferase 13 U/L (0-40); Blood Urea Nitrogen 4 mg/dL (6-20); Calcium 9.7 mg/dL (8.5-10.5); Carbon Dioxide 21 mmol/L (22-29); Chloride 107 mmol/L (98-107); Globulin 2.7 g/dL (1.3-4.6); Glomerular Filtration Rate 117.5 mL/min (90-130); Glucose 115 mg/dL (65-115); Osmolality Calculated 286 mOsm/kg (285-295); Sodium 139 mmol/L (136-145); Total Bilirubin 0.3 mg/dL (0.15-1.2); Total Protein 6.4 g/dL (6.6-8.7)
[2022-01-27 05:39] LABS: Anion Gap 14.1 (5-19); Potassium 3.1 mmol/L (3.5-5.1)
[2022-01-27] MEDS: metoclopramide 5 mg/mL SDV 2 mL IVP (06:52)
[2022-01-27] MEDS: potassium chloride ER 20 mEq Tablet 80 MEQ PO (07:37)
[2022-01-27] MEDS: lisinopril 20 mg Tablet PO (09:33)
[2022-01-27] MEDS: docusate sodium 100 mg Capsule PO ×2 (09:33→17:46)
[2022-01-27] MEDS: fluoxetine 10 mg Capsule PO (09:33)
[2022-01-27] MEDS: lithium carbonate 150 mg Capsule PO ×2 (09:33→20:27)
[2022-01-27] MEDS: baclofen 10 mg Tablet PO ×3 (09:34→20:27)
[2022-01-27] MEDS: ferrous gluconate 324 mg Tablet PO ×2 (09:34→17:45)
[2022-01-27] MEDS: famotidine 20 mg/2 mL INJ IVP ×2 (09:34→20:45)
[2022-01-27] MEDS: fluticasone nasal spray 16gm Btl 1 SPRAY NASAL ×2 (09:36→17:46)
[2022-01-27] MEDS: lithium carbonate 300 mg Capsule 600 MG PO ×2 (09:36→20:27)
--- NOTE | 2022-01-27 13:02 | PM.PN ---
Subjective Subjective: No acute vents overnight. Patient has remained hemodynamically stable and afebrile. Today morning seen sitting in chair. Patient is in better spirits. A lot more awake and alert. Having complete conversation. Able to discuss with me complete hospital plan and discharge planning today. Family at bedside. Vitals/I&O/Wt Last Vital Signs Temp 98.2 F 01/27/22 11:11 Pulse 86 01/27/22 11:11 Resp 18 01/27/22 11:11 BP 175/114 01/27/22 11:11 Pulse Ox 97 01/27/22 11:11 O2 Del Method 01/27/22 11:11 O2 Flow Rate 2 01/26/22 08:00 01/26/22 01/27/22 01/27/22 22:59 06:59 14:59 Intake Total 1360 / 1530 360 / 1890 240 / 240 Balance 1360 / 1130 360 / 1490 240 / 240 Weight last 48 hrs Weight 117.934 kg Weight 117.934 kg Physical Exam Narrative: EXAM NARRATIVE: General: No acute distress, AO x3, appearing better today, emotional, neck brace, HEENT: PERRLA, pupils bilaterally equal and reactive Chest: Bilateral normal vesicular breath sounds, good equal air entry CVS: S1-S2 regular, no murmurs, no tachycardia, no gallops, no rubs Abdomen: Soft, nontender mildly distended, no organomegaly, bowel sounds present, obese Neuro: No focal deficits, no facial deformity, AO x3, power 5/5 in all limbs Urinary Catheter Management: Coude: Cath Placed During This Visit: yes, but has since been removed by the nurse Reason for Continuing Indwelling Catheter: Decision to DC Catheter Urinary Catheter Date of Insertion: 01/21/22 Urinary Catheter Time of Insertion: 17:05 Date Urinary Catheter Removed: 01/25/22 Time Urinary Catheter Discontinued: 07:26 Data : 01/27/22 04:12 01/27/22 04:12 Micro: Microbiology 01/23/22 13:21 Gram Stain - Final Neck Anaerobic Culture - Preliminary Tissue Culture - Final 01/21/22 12:24 Blood Culture - Final Blood NO GROWTH AFTER 5 DAYS 01/21/22 12:20 Blood Culture - Final Blood NO GROWTH AFTER 5 DAYS A&P Assessment and plan (1) Status post cervical spinal fusion: Status: Acute (2) VIOLET (acute kidney injury): Status: Acute (3) [place] intoxication: Status: Acute (4) Leukocytosis: Status: Acute (5) Dehydration: Status: Acute (6) Nausea: Status: Acute (7) Difficulty in swallowing: Status: Acute (8) Cervical spondylosis with myelopathy: Status: Acute (9) Obstructive sleep apnea: Status: Acute (10) CPAP (continuous positive airway pressure) dependence: Status: Acute Plan 52 gentleman with recent history of cervical fusion within the last 3 weeks presents with poor oral intake, generalized weakness and myalgias found to be in VIOLET along with leukocytosis. Postoperative abscess/hematoma collection: Post evacuation on 01/23 OR cultures awaited. Blood culture, CSF cultures so far negative. Appreciate Dr. Maher's recommendation. MRSA negative. Stop vancomycin. Continue with Zosyn for now. We will follow-up over culture results and change or discontinue antibiotics accordingly. If cultures remain negative for next 72 to 96 hours will give us trial of discontinuation of antibiotics. Acute kidney injury: Resolved. Good urine output. Most likely secondary to dehydration from poor oral intake home dose of lisinopril and hydrochlorothiazide. Cannot rule out sepsis. Medical reconciliation done for nephrotoxic drugs. Roy catheterization. Continue with normal saline at 75 cc/h. We will discontinue fluid as oral intake increases. CT abdomen pelvis negative for obstructive nephropathy. Continue to monitor daily. Poor oral intake: Most likely secondary to postoperative changes and mass-effect from large hematoma collection. Nausea resolved. Modified barium swallow negative for any issues with swallowing. Encourage patient to drink and eat more. Full liquid diet. Zofran as needed. Bipolar disorder: On review of medication list from his PCP. Medications changed. Change Prozac 10 mg oral daily. Start baclofen 10 mg 3 times daily. Takes 900 mg lithium twice daily daily. Increase to 600 mg twice daily today. [place] toxicity: Last dose on 01/14. Resolved. Continue to monitor on tele. Will recheck lithium levels in 48 hours. Obstructive sleep apnea: Continuing home CPAP. Encourage patient to sit out of bed to chair for as long as possible. PT/OT evaluation. Encourage for increase oral intake. Analgesia: [place] 5 mg every 4 hours as needed, Tylenol as needed Glycemic control: Not needed Nutrition: Advance to GI soft diet CODE STATUS: Full code PUD prophylaxis: Pepcid DVT prophylaxis: SCDs. Discharge planning: PT marilin appreciated. Plan to possible discharge to acute rehab versus home with home health. [facility] with [facility] care. This documentation was created by [employer] rn cardiovascular icu software. Every effort was made to ensure accuracy of rn cardiovascular icu. Any obvious errors or omissions should be clarified with the author of the document. Plan for today: Out of bed to chair. Continue to follow cultures. Continue to monitor off antibiotics. Continue with home dose of Prozac, baclofen, lithium at 600 mg twice daily. Blood pressure is elevated. Goal blood pressure less than 140/90 mmHg. Restart home dose of lisinopril. Hold off on hydrochlorothiazide for now. If needed will start on amlodipine. Discharge planning: Plan to discharge within next 24 hours to acute rehab versus home with home health. Discussed the plan with patient and patient's family at bedside. Both agreeable. Attestations Medical Necessity Statement*: Requires further hospitalization for management of postoperative hematoma, resolving acute kidney injury, lithium toxicity in a patient with bipolar disorder Time Spent in Patient Care: Greater than 35 minutes Coding Level of Care Code Acute Shuttle Fitting Supervisor for Chg Fwd Diagnoses Status post cervical spinal fusion Z98.1 VIOLET (acute kidney injury) N17.9 [place] intoxication T56.891A Leukocytosis D72.829 Dehydration E86.0 Nausea R11.0 Difficulty in swallowing R13.10 Cervical spondylosis with myelopathy M47.12 Obstructive sleep apnea G47.33 CPAP (continuous positive airway pressure) dependence Z99.89
[2022-01-28] VITALS: BP 160/96; PULSE 63; RESP 15; TEMP 37; O2SAT 88
[2022-01-28 07:50] VITALS: BP 138/94; PULSE 97; RESP 16; TEMP 36.7; O2SAT 95
[2022-01-28 08:00] VITALS: BP 152/97; PULSE 110; PULSE 81; RESP 15; RESP 18; TEMP 36.8; O2SAT 98
[2022-01-28] MEDS: lithium carbonate 150 mg Capsule PO (09:28)
[2022-01-28] MEDS: lithium carbonate 300 mg Capsule 600 MG PO (09:28)
[2022-01-28] MEDS: famotidine 20 mg/2 mL INJ IVP (09:29)
[2022-01-28] MEDS: ferrous gluconate 324 mg Tablet PO (09:29)
[2022-01-28] MEDS: fluoxetine 10 mg Capsule PO (09:29)
[2022-01-28] MEDS: docusate sodium 100 mg Capsule PO (09:29)
[2022-01-28] MEDS: lisinopril 20 mg Tablet PO (09:29)
[2022-01-28] MEDS: baclofen 10 mg Tablet PO (09:29)
[2022-01-28] MEDS: fluticasone nasal spray 16gm Btl 1 SPRAY NASAL (09:29)
--- NOTE | 2022-01-28 10:26 | P.PN_ITS ---
Subjective Subjective: Patient appears to be manic at this point. Ambulating well. Vitals/I&O/Wt Last Vital Signs Temp 98.0 F 01/28/22 07:50 Pulse 110 H 01/28/22 08:00 Resp 18 01/28/22 08:00 BP 138/94 01/28/22 07:50 Pulse Ox 98 01/28/22 08:00 O2 Del Method 01/28/22 08:00 O2 Flow Rate 2 01/26/22 08:00 01/27/22 01/28/22 01/28/22 22:59 06:59 14:59 Intake Total 480 / 960 360 / 1320 Output Total 0 / 0 Balance 480 / 960 360 / 1320 Physical Exam Narrative: dressing with some drainage Urinary Catheter Management: Coude: Cath Placed During This Visit: yes, but has since been removed by the nurse Reason for Continuing Indwelling Catheter: Decision to DC Catheter Urinary Catheter Date of Insertion: 01/21/22 Urinary Catheter Time of Insertion: 17:05 Date Urinary Catheter Removed: 01/25/22 Time Urinary Catheter Discontinued: 07:26 Data : 01/27/22 04:12 01/27/22 04:12 Micro: Microbiology 01/23/22 13:21 Gram Stain - Final Neck Anaerobic Culture - Preliminary Tissue Culture - Final A&P Assessment and plan (1) Status post cervical spinal fusion: change dressing as needed (BID at this point) f/u ortho clinic 1 week Status: Acute Attestations Medical Necessity Statement*: per primary service Coding Level of Care Code Acute Airplane Pilot Photogrammetry for Ermias Fwhelena Diagnoses Status post cervical spinal fusion Z98.1
[2022-01-28 12:00] VITALS: BP 152/97; PULSE 81; RESP 15; TEMP 36.8; O2SAT 97
--- NOTE | 2022-01-28 12:18 | P.DS_ITS ---
Discharge Providers Date of Admission: 01/21/22 19:56 Date of Discharge: January 28, 2022 Attending Provider at Admission: Ramirez Peters MD Attending Provider at Discharge: Ramirez Peters MD Primary Care Provider: Lorrie Gtz Diagnoses at Discharge Discharge Diagnosis (1) Status post cervical spinal fusion: Status: Acute Reason for Visit Reason for Visit: WEAKNESS/ DEHYDRATION/ POST OP ISSUES Hospital Course Hospital Course Fidel Moura is a 56 year old with past medical history of hypertension, depression and bipolar disorder, was admitted for the management of ?spondylolisthesis at C4-5 s/p anterior and posterior cervical fusion on 01/02, discharged on 01/04 presented to the ER today because he has been feeling weak, generalized myalgias, poor oral intake because of nausea and difficulty in swallowing since his OR for last 17 to 18 days getting worse for last 1 week.? Patient has subjective fever but denies of checking temperature at home.? Patient is on lithium for bipolar disease which he states last he took was probably on 01/14 for on 01/16. Patient admitted to hospital further evaluation and management. On admission he was found to be in acute kidney injury, lithium toxicity. On admission patient was altered. He was started on IV fluids. [place] was withheld. There was a concern for perioperative hematoma/abscess/collection. Orthopedics was consulted. MRI was done which was concerning for an abscess as well hence pat ient underwent evacuation of hematoma along with removal of screw and placement of new C2 screw on 01/23. Patient responded well to the treatment and VIOLET resolved. His lithium levels also trended down appropriately. Eventually he was started on low-dose lithium which was titrated up. During hospitalization his OR cultures, blood cultures remain negative. Antibiotics were stopped and he was monitored off antibiotics for at least 48 hours. He remained hemodynamically stable and afebrile. Home medical reconciliation was done. It was found out at home he is on lithium 1800 mg in divided doses, Prozac 10 mg daily, baclofen 10 mg 3 times daily. Safe discharge plan were discussed in detail with the patient. He continues to do better with physical therapy. As lithium levels improved his mentation and physical activity also improved. Safe discharge planning including discharge to acute rehab versus home with home health were discussed in detail. Acute rehab could not be arranged. Patient is agreeable to go home with home health. He has been discharged in hemodynamically stable condition. Physical Exam Narrative: EXAM NARRATIVE: General: No acute distress, AO x3, appearing better today, emotional, neck brace, HEENT: PERRLA, pupils bilaterally equal and reactive Chest: Bilateral normal vesicular breath sounds, good equal air entry CVS: S1-S2 regular, no murmurs, no tachycardia, no gallops, no rubs Abdomen: Soft, nontender mildly distended, no organomegaly, bowel sounds present, obese Neuro: No focal deficits, no facial deformity, AO x3, power 5/5 in all limbs Urinary Catheter Management: Coude: Cath Placed During This Visit: yes, but has since been removed by the nurse Reason for Continuing Indwelling Catheter: Decision to DC Catheter Urinary Catheter Date of Insertion: 01/21/22 Urinary Catheter Time of Insertion: 17:05 Date Urinary Catheter Removed: 01/25/22 Time Urinary Catheter Discontinued: 07:26 Discharge Data Studies Completed and Pending Completed Studies During Hospitalization Category Date Time Status CT chest abdomen pelvis [[place] [id number] Cat Scan 01/21/22 12:49 Completed ] Stat CT head wo con* [id number] Stat Cat Scan 01/21/22 12:[address] neck w con* [id number] Stat Cat Scan 01/21/22 14:14 Completed [place] barium swallow modifd [id number] Routine Exams 01/22/22 21:47 Completed XR cervical spine 1V [id number] Routine Exams 01/23/22 Completed MR cervical spin wo con* [id number] Routine MRI 01/22/22 08:07 Completed Pending at discharge Category Date Time Status Anaerobic Culture Routine Lab 01/23/22 13:21 Results Tissue Culture and Gram Stain Routine Lab 01/23/22 13:21 Results Radiology Impressions Chest/Abdomen/Pelvis CT 01/21/22 12:49 IMPRESSION: 1. No acute findings in the chest abdomen or pelvis. 2. Partially visualized postoperative findings in the lower cervical and upper thoracic dorsal soft tissues. Head CT 01/21/22 12:49 IMPRESSION: 1. No evidence of intracranial hemorrhage or mass effect. 2. Normal manzanares-white differentiation. 3. Retention cyst LEFT maxillary sinus measuring 1.5x1.9 cm. 4. No acute intracranial findings. Neck CT 01/21/22 14:14 IMPRESSION: 1. Comparison CT 01/14/2022. Multilevel posterior and anterior surgical fusion hardware with midline posterior fluid collection, presumably postop as described above. The superior aspect of midline posterior fluid collection is relatively stable however the inferior component of fluid collection has significantly increased in size as described. Multilevel endplate irregularity is also noted and stable. Please refer to discussion above as active infectious process would be difficult to exclude in this setting. 2. Probable minimal symmetric pharyngeal soft tissue thickening and may be related to nonspecific edema or minimal pharyngitis, unchanged. No discrete tonsillar abscess or other soft tissue neck mass. No other obvious signs of acute collection or acute infectious process in the deep soft tissue neck spaces. 3. Sinus findings as above. Cervical Spine MRI 01/22/22 08:07 IMPRESSION: 1. Extensive postsurgical changes including C3-C5 decompressive laminectomies with, with anterior mechanical fusion of C4-6, and posterior mechanical fusion of C4-T2. 2. Large fluid collection in the C3-5 decompressive laminectomy defect and extending into the posterior soft tissues. This measures 5.1 x 4.7 x 15.5 cm and is suspicious for postoperative abscess. This fluid collection extends inferiorly into the upper thoracic soft tissues, beyond the images provided. 3. With mass effect from the with posterior fluid collection creates moderate central canal stenosis at C3-C4 and severe central canal stenosis at C4-C5. Modified Barium Swallow 01/22/22 21:47 IMPRESSION: 1. No significant aspiration or laryngeal penetration identified. 2. No significant swallowing deficit. Please see speech therapist report also for recommendations. Cervical Spine X-Ray 01/23/22 00:00 Impression: Adjustment of cervical fusion hardware. Laboratory Results WBC 12.1 10^3/uL (4.0-10.0) H 01/27/22 04:12 RBC 3.45 10^6/uL (4.1-5.3) L 01/27/22 04:12 Hgb 10.0 g/dL (11.7-16.6) L 01/27/22 04:12 Hct 30.5 % (42.0-52.0) L 01/27/22 04:12 MCV 88.4 fl (80-94) 01/27/22 04:12 MCH 29.0 pg (28.0-34.0) 01/27/22 04:12 MCHC 32.8 g/dL (30.0-36.0) 01/27/22 04:12 RDW 13.1 % (12.1-15.1) 01/27/22 04:12 Plt Count 365 10^3/cmm (130-400) 01/27/22 04:12 MPV 12.2 fL (7.4-10.4) H 01/27/22 04:12 Neut % (Auto) 75.4 % 01/27/22 04:12 Lymph % (Auto) 13.4 % 01/27/22 04:12 [place] % (Auto) 7.7 % 01/27/22 04:12 Eos % (Auto) 2.2 % 01/27/22 04:12 Baso % (Auto) 0.4 % 01/27/22 04:12 Neut # (Auto) 9.09 10^3/uL (1.8-7.7) H 01/27/22 04:12 Lymph # (Auto) 1.6 10^3/uL (0.8-4.8) 01/27/22 04:12 [place] # (Auto) 0.9 10^3/uL (0.2-0.9) 01/27/22 04:12 Eos # (Auto) 0.3 10^3/uL (0.0-0.8) 01/27/22 04:12 Baso # (Auto) 0.1 10^3/uL (0.0-0.1) 01/27/22 04:12 Nucleated RBC % (auto) 0 % 01/27/22 04:12 Nucleated RBCs # 0.0 /100WBC 01/27/22 04:12 Specimen Type Arterial 01/22/22 08:31 Sample Site Radial, left 01/22/22 08:31 ABG pH 7.37 (7.35-7.45) 01/22/22 08:31 ABG pCO2 34.0 mmHg (35-45) L 01/22/22 08:31 ABG pO2 84.2 mmHg (80.0-100.0) 01/22/22 08:31 ABG HCO3 19.5 mmol/L (22-26) L 01/22/22 08:31 ABG O2 Saturation 97.6 01/22/22 08:31 ABG Base Excess -5.1 mmol/L (-2.0-2.0) L 01/22/22 08:31 Zohaib Test Pos 01/22/22 08:31 A-a O2 Gradient 2.9 mmHg (5-10) L 01/22/22 08:31 Hematocrit 34.9 % (42-52) L 01/22/22 08:31 Hgb O2 Saturation 96.1 % (95-100) 01/22/22 08:31 Carboxyhemoglobin 1.0 %THgb (0.4-20.1) 01/22/22 08:31 Methemoglobin 0.5 % (0.4-1.5) 01/22/22 08:31 Total Hemoglobin 11.4 g/dL (14-18) L 01/22/22 08:31 Sodium 138.0 mmol/L (131-143) 01/22/22 08:31 Potassium 3.4 mmol/L (3.5-5.0) L 01/22/22 08:31 Glucose 120.0 mg/dL (70-115) H 01/22/22 08:31 Ionized Calcium 1.4 mmol/L (1.1-1.4) 01/22/22 08:31 O2 Delivery Device Room air 01/22/22 08:31 FiO2 21.0 % 01/22/22 08:31 Seals Engraver ID Cak 01/22/22 08:31 Sodium 139 mmol/L (136-145) 01/27/22 04:12 Potassium 3.1 mmol/L (3.5-5.1) L 01/27/22 04:12 Chloride 107 mmol/L (98-107) 01/27/22 04:12 Carbon Dioxide 21 mmol/L (22-29) L 01/27/22 04:12 Anion Gap 14.1 (5-19) 01/27/22 04:12 BUN 4 mg/dL (6-20) L 01/27/22 04:12 Creatinine 0.7 mg/dL (0.7-1.2) 01/27/22 04:12 GFR Calculation 117.5 mL/min (90-130) 01/27/22 04:12 Glucose 115 mg/dL (65-115) 01/27/22 04:12 Estimat Average Glucose 114 01/22/22 04:02 Hemoglobin A1c 5.6 % (4.0-6.0) 01/22/22 04:02 Calculated Osmolality 286 mOsm/kg (285-295) 01/27/22 04:12 Lactic Acid 1.2 mmol/L (0.5-2.2) 01/21/22 21:51 Calcium 9.7 mg/dL (8.5-10.5) 01/27/22 04:12 Phosphorus 3.4 mg/dL (2.5-4.5) 01/22/22 04:02 Magnesium 2.1 mg/dL (1.7-2.3) 01/22/22 04:02 Iron 33 ug/dL (59-158) L 01/21/22 11:37 TIBC 197 mcg/dl 01/21/22 11:37 % Saturation 16.7 % (20-50) L 01/21/22 11:37 Unsat Iron Binding 164 ug/dL (112-347) 01/21/22 11:37 Total Bilirubin 0.3 mg/dL (0.15-1.2) 01/27/22 04:12 AST 13 U/L (0-40) 01/27/22 04:12 ALT 10 U/L (0-41) 01/27/22 04:12 Alkaline Phosphatase 175 U/L (40-130) H 01/27/22 04:12 C-Reactive Protein 24.3 mg/L (0.0-4.9) H 01/21/22 11:37 Total Protein 6.4 g/dL (6.6-8.7) L 01/27/22 04:12 Albumin 3.7 g/dL (3.5-5.2) 01/27/22 04:12 Globulin 2.7 g/dL (1.3-4.6) 01/27/22 04:12 Triglycerides 85 mg/dL (0-150) 01/22/22 04:02 Cholesterol 112 mg/dL (0-200) 01/22/22 04:02 LDL Cholesterol, Calc 71 mg/dL (50-129) 01/22/22 04:02 Total VLDL Cholesterol 17 mg/dL (0-30) 01/22/22 04:02 HDL Cholesterol 24 mg/dL (60-100) L 01/22/22 04:02 Cholesterol/HDL Ratio 4.67 mg/dL (1.0-5.00) 01/22/22 04:02 Vitamin B12 1652 pg/mL (232-1245) H 01/21/22 11:37 Folate 5.7 ng/mL (4.5-32.2) 01/21/22 11:37 Procalcitonin 0.12 ng/mL (0-0.5) 01/21/22 11:37 TSH 1.52 uIU/mL (0.27-4.20) 01/21/22 11:37 Urine Color Yellow (Yellow) 01/21/22 20:40 Urine Appearance Clear (CLEAR) 01/21/22 20:40 Urine pH 7 (5-7) 01/21/22 20:40 Ur Specific [place] 1.005 (1.005-1.030) 01/21/22 20:40 Urine Protein Neg (Negative) 01/21/22 20:40 Urine Glucose (UA) Norm (Normal) 01/21/22 20:40 Urine Ketones 1+ (Negative) H 01/21/22 20:40 Urine Blood 3+ (Negative) H 01/21/22 20:40 Urine Nitrate Negative (Negative) 01/21/22 20:40 Urine Bilirubin Neg (Negative) 01/21/22 20:40 Urine Urobilinogen Norm mg/dL (Negative) 01/21/22 20:40 Ur Leukocyte Esterase Negative (Negative) 01/21/22 20:40 Urine RBC None /hpf (0-2) 01/21/22 14:40 Urine WBC 5-10 /hpf (0-5) H 01/21/22 14:40 Ur Eosinophil Smear Not Reportable 01/21/22 20:40 Ur Squamous Epith Cells 0-4 /hpf (0-5) H 01/21/22 14:40 Amorphous Sediment Not Reportable 01/21/22 14:40 Urine Bacteria Trace /hpf (NONE) 01/21/22 14:40 Hyaline Casts 10-15 /lpf H 01/21/22 14:40 Urine Mucus Trace /hpf 01/21/22 14:40 Urine Eosinophils No eosinophils seen 01/21/22 20:40 Ur Random Sodium 64 mmol/L 01/21/22 20:40 Ur Random Potassium 24 mmol/L 01/21/22 20:40 Ur Random Chloride 44 mmol/L 01/21/22 20:40 Urine Creatinine 111 mg/dL (39-259) 01/21/22 20:40 CSF Appearance Clear (CLEAR) 01/21/22 19:20 CSF Color Colorless (COLORLESS) 01/21/22 19:20 CSF Specific [place] 1.010 01/21/22 19:20 CSF WBC 6 /uL (0-5) H 01/21/22 19:20 CSF RBC 0 10^3/uL (0-0) 01/21/22 19:20 CSF Mononuclear # Auto 0.003 10^3/uL (50-90) L 01/21/22 19:20 CSF Mononuclear WBCs % 50 % (50-90) 01/21/22 19:20 CSF Polynuclear WBCs # 0.003 10^3/uL (0-10) 01/21/22 19:20 CSF Polynuclear WBCs % 50 % (0-10) H 01/21/22 19:20 CSF Diff Comment Yes 01/21/22 19:20 CSF Glucose 68 mg/dL (40-70) 01/21/22 19:20 CSF Total Protein 119 mg/dL (15-45) H 01/21/22 19:20 Nasal Influ A H1 2009 PCR Not detected (NOT DETECT) 01/21/22 15:08 RSV Nasal Swab Cancelled 01/21/22 11:37 RSV Nasal Swab Int Cntl Cancelled 01/21/22 11:37 Vancomycin Trough 27.5 ug/mL (10-15) H* 01/24/22 13:50 Random Vancomycin 12.1 ug/mL (20.0-40.0) L 01/25/22 05:55 [place] 1.0 mmol/L (0.6-1.2) 01/28/22 04:20 Adenovirus (PCR) Not detected (NOT DETECT) 01/21/22 15:08 C. pneumoniae DNA (PCR) Not detected (NOT DETECT) 01/21/22 15:08 Coronavirus 229E (PCR) Not detected (NOT DETECT) 01/21/22 15:08 Human Metapneumovir PCR Not detected (NOT DETECT) 01/21/22 15:08 Influenza A (RT-PCR) Cancelled 01/21/22 11:37 Influenza A (H1) PCR Not detected (NOT DETECT) 01/21/22 15:08 Influenza A (H3) PCR Not detected (NOT DETECT) 01/21/22 15:08 Influenza Type A (PCR) Not detected (NOT DETECT) 01/21/22 15:08 Influenza B (RT-PCR) Cancelled 01/21/22 11:37 Influenza Type B (PCR) Not detected (NOT DETECT) 01/21/22 15:08 M. pneumoniae (PCR) Not detected (NOT DETECT) 01/21/22 15:08 Parainfluenzae Type 1 Cancelled 01/21/22 11:37 Parainfluenza 1 (PCR) Not detected (NOT DETECT) 01/21/22 15:08 Parainfluenzae Type 2 Cancelled 01/21/22 11:37 Parainfluenza 2 (PCR) Not detected (NOT DETECT) 01/21/22 15:08 Parainfluenzae Type 3 Cancelled 01/21/22 11:37 Parainfluenza 3 (PCR) Not detected (NOT DETECT) 01/21/22 15:08 Parainfluenza 4 (PCR) Not detected (NOT DETECT) 01/21/22 15:08 RSV Ab Comment Cancelled 01/21/22 11:37 RSV Type A (PCR) Not detected (NOT DETECT) 01/21/22 15:08 RSV Type B (PCR) Not detected (NOT DETECT) 01/21/22 15:08 Rhinovirus (PCR) Cancelled 01/21/22 11:37 Entero/Rhino (PCR) Not detected (NOT DETECT) 01/21/22 15:08 SARS-CoV-2 (PCR) Not detected (NOT DETECT) 01/21/22 15:08 Vitals Last Vital Signs Temp 98.3 F 01/28/22 12:00 Pulse 81 01/28/22 12:00 Resp 15 01/28/22 12:00 BP 152/97 01/28/22 12:00 Pulse Ox 97 01/28/22 12:00 O2 Del Method 01/28/22 12:00 O2 Flow Rate 2 01/26/22 08:00 Discharge Plan Discharge Patient Disposition: Home Health Service Condition: Stable Prescriptions: New ferrous gluconate 324 mg (37.5 mg iron) Tablet 324 mg PO BIDWM Qty: 60 0RF lithium carbonate 150 mg Capsule 150 mg PO BID@0900,2100 30 Days Qty: 60 0RF lisinopril 20 mg Tablet 20 mg PO DAILY Qty: 30 0RF baclofen 10 mg Tablet 10 mg PO TID 30 Days Qty: 90 0RF fluoxetine 10 mg Capsule 20 mg PO DAILY Qty: 60 0RF lithium carbonate 300 mg Capsule 600 mg PO BID@0900,2100 30 Days Qty: 120 0RF Continued (DME) Custom Foot Orthotics Bilaterally See Rx Instructions .Route .MEDSUPPLY Qty: 1 0RF Rx Instructions: As directed by Sanjuana (DME) Night splint See Rx Instructions .ROUTE .MEDSUPPLY Qty: 1 0RF Rx Instructions: As directed (DME) [place] J collar See Rx Instructions .Route .MEDSUPPLY Qty: 1 0RF Rx Instructions: As directed (DME) Bone Growth Stimulator See Rx Instructions .Route .MEDSUPPLY Qty: 1 0RF Rx Instructions: As directed ondansetron HCl 8 mg tablet 8 mg PO Q8H PRN (Reason: nausea and vomiting) Qty: 30 0RF acetaminophen 500 mg Tablet 1,000 mg PO BID PRN (Reason: Pain) Hold Instructions: Resume on 01/30/22. While Taking Hydrocodone Discontinued cyclobenzaprine 10 mg tablet 10 mg PO TID PRN (Reason: muscle spasm) 30 Days Qty: 90 1RF cephalexin 500 mg capsule 500 mg PO TID 7 Days Qty: 21 0RF fluoxetine 10 mg capsule 30 mg PO DAILY lisinopril-hydrochlorothiazide 20-25 mg tablet 1 tab PO DAILY Discharge Orders: Discharge Order (Routine); Ordered 01/28/22 Ordered By: Ramirez Peters Referrals: Lorrie Gtz [Primary Care Provider] - 7-10 days Aniket Maher DO [Physician] - 2 weeks [facility] [Staff Physician] - 2 weeks Discharge Diet: Regular Discharge Activity: Resume usual activity and Increase activity as tolerated Patient Instructions: Opioid Safety Activity Restrictions/Additional Instructions: Please recheck BMP and lithium level with your primary care provider within next 1 week. Please follow-up at behavioral health clinic within next 2 weeks. Medication changes for you would be as follows. [place] carbonate will be 750 mg twice daily. Prozac will be 20 mg daily. Continue taking baclofen at 10 mg 3 times a day. Do not take combination of lisinopril, hydrochlorothiazide. Instead take lisinopril 20 mg oral daily. Thank you for choosing [facility] for your care! The following is a list of instructions, from your provider, to follow upon your discharge to ensure you have the optimal recovery from your recent injury or surgery. Anterior Cervical Discectomy and Fusion: What to Expect at Home Your Recovery Follow-up care is a ribera part of your treatment and safety. Be sure to make and go to all appointments, and call your doctor if you are having problems. If you do not already have a follow-up appointment made, call office in the next 1-3 days to make follow up appointment for 1 weeks at [phone]. It is also a good idea to know your test results and keep a list of the medicines you take. You can expect your neck to feel stiff or sore after surgery. This should improve in the weeks after surgery. But it may take 4 to 6 months for you to get better completely. You may have trouble sitting or standing in one position for very long and may need pain medicine in the weeks after your surgery. It may take 4 to 6 weeks to get back to your usual activities, but it may depend on what kind of surgery you had. Your throat will feel sore and it may be difficult to swallow for the first 3 days after your surgery. As long as you can get liquids down without difficulty, this should slowly improve, otherwise call our office or seek medical attention if it becomes increasingly difficult to get anything down including liquids. Avoid hot liquids for first 3-5 days. Soothing foods/liquids such as jello, pudding, and luke warm soups are recommended until swallowing improves. Staying elevated will also help, it's advised you keep propped up at while sleeping to help reduce the swelling. You may use an ice pack directly on your incision or around it on the front of your neck, using a cloth to protect your skin; and a heating pad to the back of your neck as needed. Do not use over the counter anti-inflammatory medications (Ibuprofen, Motrin, Aleve, Advil, etc) Taking these meds after having a fusion can delay fusion rates, we recommend you avoid them for the first 3 [address] after your surgery[address] Dr. Maher may advise you to work with a physical therapist to strengthen the muscles around your neck and back - this will be discussed at your follow - up appointments. The pain or numbness you were having in your arms before surgery should get better or go away completely. This care sheet gives you a general idea about how long it will take for you to recover. But each person recovers at a different pace. Follow the steps below to get better as quickly as possible. How can you care for yourself at home? Activity ? Rest when you feel tired. Getting enough sleep will help you recover. ? Try to walk each day. Start by walking a little more than you did the day before. Bit by bit, increase the amount you walk. Walking boosts blood flow and helps prevent pneumonia and constipation. Walking may also decrease your muscle soreness after surgery. ? No lifting anything that is more that 5 pounds. This may include heav y grocery bags and milk containers, a heavy briefcase or backpack, cat litter or dog food bags, a child, or a vacuum housekeeping cleaner. ? Avoid strenuous activities, such as bicycle riding, jogging, weig htlifting, or aerobic exercise, until your doctor says it is okay. ? Do not drive until your follow-up visit after your surgery, or until your doctor says it isokay. ? Avoid taking long car trips for 2 to 4 weeks after surgery. Your neck may become tired and painful from sitting too long in one position. ? You will probably need to take 4 to 6 weeks off from work. It depends on the type of work you do and how you feel. ? You may have sex as soon as you feel able, but avoid positions that put stress on your neck or cause pain. Diet ? You can eat your normal diet. If your stomach is upset, try bland, low-fat foods like plain rice, broiled chicken, toast, and yogurt ? Drink plenty of fluids. If you have kidney, heart, or liver disease and have to limit fluids, talk with your doctor before you increase the amount of fluids you drink. ? You may notice that your bowel movements are not regular right after your surgery. This is common. Try to avoid constipation and straining with bowel movements. You may want to take a fiber supplement every day. If you have not had a bowel movement after a couple of days, ask your doctor about taking a mild laxative. Medicines ? Take pain medicines exactly as directed. 1. If Dr. Maher gave you a prescription medicine for pain, take lt as prescribed. 2. Do not take two or more pain medicines at the same time unless the doctor told you to. Many pain medicines have acetaminophen, which is Tylenol. Too much acetaminophen {Tylenol) can be harmful. 3. If you think your pain pill is making you sick to your stomach: 4. Take your pills after meals (unless your doctor has told you not to). 5. Ask your Dr. for a different pain pill. Incisioncare ? Remove your dressing 48 hours after your surgery. Ok to shower and get the incision wet. Do not overtly wash your incision. When done, pad dry, leave open to air thereafter. Avoid creams and ointments directly on your incision. ? Your sutures in the incision will dissolve and fall out on their own. ? Keep the area clean and dry. You may cover it with a gauze bandage if it weeps or rubs against clothing; if you choose to do this, change the dressing everyday. Other instructions ? Use a heating pad, hot water bottle, or gentle massage on your back to reduce stiffness. Avoid putting heat on your incision When should you call for help? ? Call 911 anytime you think you may need emergency care. For example, call if: ? You pass out (lose consciousness). ? You have sudden chest pain and shortness of breath, or you cough upblood. ? You cannot swallow. ? You have severe pain in your neck or back. ? Call your Dr. or seek immediate medical care if: ? You have pain that does not get better after you take pain pills. ? You have loose stitches, or your incision comes open. ? You have blood or fluid draining from the incision. ? You have signs of infection, such as: 1. Increased pain, swelling, warmth, or redness. 2. Red streaks leading from the site. 3. Pus draining from the site. 4. Swollen lymph nodes in your neck or armpits. 5. A fever. ? You have severe pain in your arms. ? You have new or increased weakness or numbness in your arms. ? Watch closely for any changes in your health, and be sure to contact your doctor if: ? You do not have a bowel movement after taking a laxative. Discharge Attestations Time Spent in Discharge Care*: greater than 30 min Specific Discharge Activities: educating patient, educating and/or supporting family/caregiver, discussing with pcp/other providers, discussing with insurance case manager/social workers/dc planners, documenting/other paperwork and evaluating patient/reviewing data Status at Discharge: Cognitive status at discharge: cognitively intact , Behavioral status at discharge: cooperative , Functional status at discharge: independent ambulation , Overall status at discharge: patient is progressing back to baseline Quality Metrics Clinical Quality Measures [ No reported AMI, CVA or VTE this stay] Coding Level of Care Code Acute Chg FW DC note Diagnoses Status post cervical spinal fusion Z98.1
--- NOTE | 2022-01-28 15:05 | PC.NURSE ---
Discussed discharge, new medications, continued medications, stopped medications and follow up appointments with patient and 3 family members. Verbalized understanding after many questions.
[2022-01-28 15:40] VITALS: BP 152/97; PULSE 81; RESP 15; TEMP 36.8; O2SAT 97
== END 2022-01-28 15:45 | disposition home health service (06) | DRG 908 ==
LOC: ER 16:54 → ICU 19:32 → MEDSURG 01-24 20:01
PROVIDERS: Family Medicine; Orthopaedic Surgery; Admitting Provider Student in an Organized Health Care Education/Training Program; Emergency Provider Emergency Medicine; PCP Nurse Practitioner Family; Visit Provider Student in an Organized Health Care Education/Training Program
PROC: 0RW104Z Revision of Internal Fixation Device in Cervical Vertebral Joint, Open Approach (ICD-10-PCS; CPT 63001; principal; 2022-01-23 12:00)
DX: T42.0X1A Poisoning by hydantoin derivatives, accidental (unintentional), initial encounter (principal); A52.16 Charcot's arthropathy (tabetic); N17.9 Acute kidney failure, unspecified; M47.12 Other spondylosis with myelopathy, cervical region; T84.028A Dislocation of other internal joint prosthesis, initial encounter; M96.840 Postprocedural hematoma of a musculoskeletal structure following a musculoskeletal system procedure; I10 Essential (primary) hypertension; F31.9 Bipolar disorder, unspecified; Z98.1 Arthrodesis status; Z87.891 Personal history of nicotine dependence; E86.0 Dehydration; R13.10 Dysphagia, unspecified; Z99.89 Dependence on other enabling machines and devices; G47.33 Obstructive sleep apnea (adult) (pediatric); Y79.8 Miscellaneous orthopedic devices associated with adverse incidents, not elsewhere classified
CPT/HCPCS: 36415; 36600; 51702; 62270; 70450; 70491; 71250; 72020; 72141; 74176; 74230; 76000; 80051; 80053; 80061; 80178; 80202; 80503; 81001; 81003; 82330; 82436; 82570; 82607; 82746; 82805; 82945; 83036; 83540; 83550; 83605; 83735; 84100; 84133; 84145; 84157; 84300; 84315; 84443; 85025; 85999; 86140; 86403; 87040; 87070; 87075; 87176; 87205; 87449; 87486; 87581; 87633; 87641; 89050; 92611; 93005; 94640; 94660; 96365; 96372; 96375; 97116; 97161; 97530; 97760; 99285; C1713; J0330; J0692; J1100; J1170; J1630; J1644; J1720; J2270; J2405; J2543; J2704; J2765; J3010; J3370; J3490; J7030; J7040; J7626; L0174; P9041; Q9967

== ENCOUNTER → 2022-02-05 12:54 | Outpatient (BNVA) | payer OTHER, SELFPAY | PROVIDERS: PCP Nurse Practitioner Family; Visit Provider Orthopaedic Surgery | DX: Z47.89 Encounter for other orthopedic aftercare (principal); Z98.1 Arthrodesis status | CPT/HCPCS: 99024 ==

== ENCOUNTER → 2022-02-12 12:43 | Outpatient (BNVA) | payer OTHER, SELFPAY | PROVIDERS: PCP Nurse Practitioner Family; Visit Provider Orthopaedic Surgery | DX: Z47.89 Encounter for other orthopedic aftercare (principal); Z98.1 Arthrodesis status | CPT/HCPCS: 99024 ==

== ENCOUNTER → 2022-02-19 16:00 | Outpatient (BNVA) | payer OTHER, SELFPAY | PROVIDERS: PCP Nurse Practitioner Family; Visit Provider Orthopaedic Surgery | DX: Z47.89 Encounter for other orthopedic aftercare (principal); Z98.1 Arthrodesis status | CPT/HCPCS: 72040; 99024 ==

== ENCOUNTER → 2022-02-28 09:22 | Outpatient (BNVA) | payer OTHER, SELFPAY | PROVIDERS: PCP Nurse Practitioner Family; Visit Provider Physician Assistant | DX: T81.31XA Disruption of external operation (surgical) wound, not elsewhere classified, initial encounter (principal); Z47.89 Encounter for other orthopedic aftercare; Z98.1 Arthrodesis status | CPT/HCPCS: 99024 ==

== ENCOUNTER 2022-03-04 11:56 | Inpatient (IN) | payer OTHER, SELFPAY ==
[2022-03-01 13:05] VITALS: BMI 31.2
--- NOTE | 2022-03-01 13:31 | SUR.PREOP ---
Pre-operative Patient states he will bring previous C-Collar in for surgery 03/04/22. Patient re-educated on showering instructions with Chlorhexadine.
--- NOTE | 2022-03-01 14:57 | P.ANESASSM_ITS ---
Pre-Anesthetic Assessment Height/Weight: Height 1.91 m Weight 113.398 kg Preop Diagnosis: Surgical wound dehiscence Operation Date: 03/04/22 11:30 Proposed Procedures p Incision and Drainage CERVICAL SPINE 15855 Z98.1(Not Applicable) - Aniket Maher DO Familial anesthetic complications: none Was Beta Faustina taken within 24 hours: N/A Was Clonidine taken within 24 hours: N/A Social No alcohol and No tobacco Exam alert, oriented x 3, clear to auscultation bilaterally and regular rate & rhythm Airway Submandibular: within normal limits Cervical ROM: Other (decreased flexion/extension with previous ACDF) Mallampati: Class II Dentition: chipped Pulmonary Sleep Apnea CV/HEM Hypertension Metabolic Diabetes Mellitus and Morbid Obesity Neuropsych Neuropathy Anesthetic Plan ASA status: 3 Anesthesia: General Medications/Allergies Home Medications Medication Instructions Recorded Confirmed Last Taken Type Custom Foot Orthotics Bilaterally #1 ea 12/12/20 02/28/22 Unknown Rx Night splint #1 ea 01/02/21 02/28/22 Unknown Rx [place] J collar #1 ea 10/23/21 02/28/22 Unknown Rx Bone Growth Stimulator #1 ea 01/02/22 02/28/22 Unknown Rx acetaminophen 500 mg tablet 1,000 mg PO BID PRN Pain 01/03/22 03/01/22 Unknown History ondansetron HCl 8 mg tablet 8 mg PO Q8H PRN nausea and 01/17/22 03/01/22 Unknown Rx vomiting #30 tabs ferrous gluconate 324 mg (37.5 mg 324 mg PO BIDWM #60 tabs 01/28/22 03/01/22 Unknown Rx iron) tablet fluoxetine 10 mg capsule 20 mg PO DAILY #60 caps 01/28/22 03/01/22 Unknown Rx lisinopril 20 mg tablet 20 mg PO DAILY #30 tabs 01/28/22 03/01/22 Unknown Rx lithium carbonate 600 mg capsule 600 mg PO BID 03/01/22 03/01/22 Unknown History naproxen 500 mg tablet mg PO BID 03/01/22 Unknown History Allergies Allergy/AdvReac Type Severity Reaction Status Date / Time No Known Allergies Allergy Verified 02/28/22 10:28 [facility] Anesthesia Medical History 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 Bipolar disorder Cervical spondylosis with myelopathy Charcot's joint of foot CPAP (continuous positive airway pressure) dependence Depression Erectile dysfunction Hammer toe of left foot Hypertension Obstructive sleep apnea Surgical History H/O lumpectomy Status post cervical spinal fusion Status post right foot surgery Family History Denies family history of Diabetes CAD (coronary artery disease) Clotting disorder Dementia Hyperlipidemia Psychiatric illness Chronic kidney disease (CKD) Suicide Anesthesia complication Bleeding disorder Family history of premature coronary artery disease Lung disease Cancer Hypertension Stroke Social History Smoking and tobacco status: former smoker (40+ years ) Second hand smoke exposure: No Smoking risk assessment/counseling performed?: No Alcohol intake: never Desire information about alcohol rehabilitation?: No Counseling given: No Desire information about substance/drug rehabilitation?: No Counseling given: No Adopted: No Caregiver/support person: No Data Anesthesia Cardiac Studies: No Data to Display
[2022-03-04] VITALS (19 sets, daily range): BP systolic 101–151; BP diastolic 63–99; PULSE 59–101; RESP 14–18; TEMP 36.1–36.9; O2SAT 95–100; BMI 31.2
[2022-03-04] MEDS: sodium chloride 0.9% 1,000 ML 30 ML IV (10:08)
--- NOTE | 2022-03-04 10:32 | P.ANESUD_ITS ---
Pre-Anesthetic Update Pre-Anesthetic Assessment: Date of Surgery/Procedure: 03/04/22 Preop Emily gnosis: Surgical wound dehiscence Proposed Procedure: Operation Date: 03/04/22 11:30 Proposed Procedures p Incision and Drainage CERVICAL SPINE 29547 Z98.1(Not Applicable) - Aniket Maher, DO Any changes to Pre-Anesthetic Assessment?: No Last Intake: Intake Last Liquid Date 03/03/22 Last Liquid Time 23:00 Last Solid Date 03/03/22 Last Solid Time 17:00 Vitals: Temperature 98.0 F 03/04/22 09:49 Temperature Source Temporal Artery S can 03/04/22 09:49 Pulse Rate 72 03/04/22 09:49 Respiratory Rate 18 03/04/22 09:49 Blood Pressure 123/86 03/04/22 09:49 Blood Pressure Ariella n 98 03/04/22 09:49 Pulse Oximetry 97 03/04/22 09:49 Oxygen Delivery Me thod 03/04/22 09:51 Exam: Pre-Anes Outpt Exam: alert, oriented x 3, clear to auscultation bilaterally and regular rate & rhythm Cardiac Studies: No Data to Display
--- NOTE | 2022-03-04 10:34 | W.PM.OPSUD ---
Surgery/Procedure H&P Update DATE OF PROCEDURE: March 04, 2022 DATE H&P PERFORMED: 02/28/22 H&P UPDATE INFORMATION: I have reviewed H&P completed within last 30 days, I have examined patient prior to procedure and No changes to prior documentation PREOP DIAGNOSIS: Surgical wound dehiscence PLANNED PROCEDURE: Operation Date: 03/04/22 11:30 Proposed Procedures p Incision and Drainage CERVICAL SPINE 07110 Z98.1(Not Applicable) - Aniket Maher DO
[2022-03-04 10:43] LABS: Blood Urea Nitrogen 12 mg/dL (6-20); Calcium 9.2 mg/dL (8.5-10.5); Carbon Dioxide 24 mmol/L (22-29); Chloride 104 mmol/L (98-107); Glomerular Filtration Rate 100.7 mL/min (90-130); Glucose 92 mg/dL (65-115); Osmolality Calculated 283 mOsm/kg (285-295); Sodium 137 mmol/L (136-145)
[2022-03-04 10:44] LABS: Anion Gap 13.5 (5-19); Potassium 4.5 mmol/L (3.5-5.1)
[2022-03-04] MEDS: ceFAZolin 2,000 MG in sodium chloride 0.9% (plus) 50 ML 100 MG IV (11:03)
--- NOTE | 2022-03-04 11:58 | SUR.PHASEI ---
11:54 RECEIVED PATIENT FROM OR STAFF. RESPONDS TO VERBAL. VENTILATING WELL. WOUND VAC PATENT AND SUCTIONING WELL. ROM AND SENSATION ALL 4 EXTREMITIES. NSR ON MONITOR.
--- NOTE | 2022-03-04 12:08 | P.OP_ITS ---
Operative Report Date of procedure: March 04, 2022 Pre-op diagnosis: Preop Diagnosis Surgical wound dehiscence Post-op diagnosis: same Procedure done: 1. I+D of wound posterior cervical neck (4 inches by 2 inces by 1/2 inch deep) 2. Application of Wound Vac less than 50cm sq Surgeon: Aniket Maher Garden Consultant: Michel Monsivais Garden Consultant: The assistant production manager, Michel Monsivais, PAC was needed for his expertise under the microscope. He was important and necessary throughout the procedure to complete in a safe and timely manner. He assisted with patient positioning prepping and draping tissue retraction suctioning of the operative field protection of the dural sac and tissue closure Estimated blood loss (mL): 10 Procedure: 1. I+D of wound posterior cervical neck (4 inches by 2 inces by 1/2 inch deep) 2. Application of Wound Vac less than 50cm sq Patient is brought to the operative suite after undergoing anesthesia was placed in the prone position. All areas impingement well-padded. Patient had 2 small areas of drainage in the center of his wound. At this point the 2 small openings were ellipsed out and connected. The wound was 4 inches x 2 inches by about a half an inch deep. Tracked down to the bone. [place] was used to rongeur out some of the bone fragments and soft tissues that looked infected. Cultures were taken. Wound was irrigated with saline. A wound VAC was placed tracking and deep to help close the space and then a vessel loop was used to help keep the skin edges together in order to facilitate not being able to close it in the future. Plan is to bring him back on Friday to hopefully either do a wound VAC change or close the wound. At this point once wound VAC was applied the wound VAC was approximately the same size of the wound. And patient was transferred to the PACU in stable addition.
--- NOTE | 2022-03-04 12:33 | SUR.PHASEI ---
12:20 AWAITING BED ASSIGNMENT. RESTING COMFORTABLY WITH EYES CLOSED.
--- NOTE | 2022-03-04 12:52 | ANE.PACU2 ---
Inpatient post-anesthesia follow up: Airway intact: Yes Vital signs: Temperature 97.6 F Pulse Rate 68 Respiratory Rate 16 Blood Pressure 147/91 Pulse Oximetry 97 Oxygen Delivery Me thod Room Air Oxygen Flow Rate Fraction of Inspir ed Oxygen Hydration adequate: Yes Nausea and vomiting: No Pain level: 1 Mental status: Baseline
[2022-03-04] MEDS: lactated ringers 1,000 ML 90 ML IV (13:44)
[2022-03-04] MEDS: vancomycin 1,000 MG in sodium chloride 0.9% 250 ML 250 MG IV (13:44)
[2022-03-04] MEDS: docusate sodium 100 mg Capsule PO (18:33)
[2022-03-04] MEDS: ferrous gluconate 324 mg Tablet PO (18:33)
[2022-03-04] MEDS: lithium carbonate 300 mg Capsule 600 MG PO (18:33)
[2022-03-05] MEDS: vancomycin 1,000 MG in sodium chloride 0.9% 250 ML 250 MG IV (01:49)
[2022-03-05] MEDS: lactated ringers 1,000 ML 90 ML IV ×2 (01:50→14:09)
[2022-03-05 04:00] VITALS: BP 103/54; PULSE 67; RESP 17; TEMP 36.6; O2SAT 97
[2022-03-05 07:23] VITALS: BP 125/77; PULSE 72; RESP 16; TEMP 36.7; O2SAT 100
--- NOTE | 2022-03-05 07:28 | PM.PN ---
Subjective Subjective: POD 1 Patient awake in no apparent distress. Reports right shoulder pain has improved. Denies any chest pain, shortness of breath or headaches. Vitals/I&O/Wt Last Vital Signs Temp 98.1 F 03/05/22 07:23 Pulse 72 03/05/22 07:23 Resp 16 03/05/22 07:23 BP 125/77 03/05/22 07:23 Pulse Ox 100 03/05/22 07:23 O2 Del Method 03/05/22 07:23 03/04/22 03/05/22 03/05/22 22:59 06:59 14:59 Intake Total 1223 / 3123 Output Total 500 / 535 300 / 835 Balance -500 / 1365 923 / 2288 Weight last 48 hrs Weight 250 lb Physical Exam Narrative: He is alert orient x3 has good general appearance normal mood and affect. Wound VAC intact and functioning. Moving both upper extremities without any limitations. Good strength throughout. Hands are warm good cap refill moving both lower extremities with good strength good sensation light touch throughout all 4 extremities. Data : 03/04/22 10:09 A&P Assessment and plan (1) Wound dehiscence, surgical: Infectious disease was consulted to help with management of antibiotics. We will keep n.p.o. after midnight return for second irrigation debridement and possible continuation of wound VAC. Physical therapy to mobilize. Continue incentive spirometry for pulmonary toilet. (2) Status post cervical spinal fusion: Attestations Medical Necessity Statement*: Second irrigation debridement scheduled for tomorrow. Coding Level of Care Code Acute Position Clerk for Ermias Wright Diagnoses Wound dehiscence, surgical T81.31XA Status post cervical spinal fusion Z98.1
[2022-03-05] MEDS: docusate sodium 100 mg Capsule PO ×2 (08:27→17:23)
[2022-03-05] MEDS: ferrous gluconate 324 mg Tablet PO ×2 (08:27→17:23)
[2022-03-05] MEDS: lithium carbonate 300 mg Capsule 600 MG PO ×2 (08:27→17:23)
[2022-03-05] MEDS: fluoxetine 10 mg Capsule 20 MG PO (08:27)
[2022-03-05] MEDS: lisinopril 20 mg Tablet PO (08:27)
--- NOTE | 2022-03-05 11:05 | PC.CHAP ---
Pastoral Care Encounter/Spiritual Assessment Type of Contact [] Declined political researcher visit [] Patient/Family/Request visit [] Outpatient visit [] Follow-up visit [] Physician referral [] Code/Alert [x] Routine visit [] Staff referral [] Actively dying [] Patient sleeping [] Family support [] [] Out of room [] Palliative care [] [] Receiving care in room [] Pre-surgical visit [] Trauma [] Long length of stay [] ICU visit [] Other: Relational/Emotional Strength [x] Patient feels connected with others/family/visitors/staff [] Distress [] Loneliness/isolation [] Abandonment Spirituality of Patient [xPerson of Melany [] Attends Anabaptism of their Melany [x] Believes in Prayer [] Reads Bible or Christian materials [] There are Spiritual issues to be addressed Protein Chemist Interventions []x Prayer [x] Active listening [x] Non-anxious presence [] Spiritual/emotional support [] Crisis/trauma care [] Spiritual counseling [] Bereavement support [] Provided bereavement packet [] Provided Bible/devotional materials [] Provided toy/stuffed animal, coloring book to patient or family member [] Provided Communion [] Anointing/Doyle [] Salvation [x] Completed spiritual assessment [] Other: Impact on Illness or Injury [] Angry [] Fearful [] Anxious [] Often cries [] Exhaustion [] Unable to work [] Unable to attend jew [] Unable to walk/stand [] Unable to read [] Unable to drive [] Unable to eat/drink [] Unable to sleep [] Unable to be with family [] Patient intubated [] Other: Summary Time spent with patient 10 min
[2022-03-05 11:16] VITALS: BP 113/71; PULSE 68; RESP 16; TEMP 36.7; O2SAT 95
[2022-03-05 15:08] VITALS: BP 114/70; PULSE 78; RESP 16; TEMP 37; O2SAT 97
[2022-03-05 20:00] VITALS: BP 130/72; PULSE 84; RESP 16; TEMP 36.6; O2SAT 97
[2022-03-05 23:22] VITALS: BP 134/84; PULSE 71; RESP 16; TEMP 36.8; O2SAT 98
[2022-03-06] VITALS (16 sets, daily range): BP systolic 108–144; BP diastolic 67–112; PULSE 62–86; RESP 15–18; TEMP 36.3–37.2; O2SAT 94–100
[2022-03-06] MEDS: lactated ringers 1,000 ML 90 ML IV (02:05)
--- NOTE | 2022-03-06 06:34 | P.CONIM_ITS ---
Providers/Reason For Consult Consulting Physician/Specialty*: Jennifer Beckham MD Reason for Consult*: infection post spinal fusion Requesting Physician: Aniket Maher MD Attending Physician: Aniket Maher DO Primary Care Provider: GALO Young History of Present Illness History of Present Illness Fidel Moura is a 56 year old male who underwent C-spine discectomy and instrumentation for a diagnosis of cervical spondylosis with myelopathy on January 02, 2022. Postop course was complicated by development of hematoma which was evacuated on 01/23/2022 additionally no screw was replaced with a new one at the C2 level. Hematoma was encountered according to the Intra-Op note. Intraoperative cultures were negative at the time. Blood cultures were negative. He was admitted at [facility] between 01 21-01 28 after presenting with generalized weakness myalgias and difficulty swallowing, VIOLET and lithium toxicity. He had altered mental status on admission which was improved. He was discharged to home in stable condition. On subsequent outpatient follow-ups with Ortho clinic he was noted to have wound dehiscence and drainage from his surgical incision. He was treated with a 10-day course of p.o. Bactrim and the wound had initially healed by 02/19/2022. By 02/28/2022 he started to complain again of increased neck pain and again had areas of wound dehiscence with purulence. Surrounding cellulitic changes were additionally noted. He was started on Keflex orally. Now admitted on March 04, 2022 for I&D of the posterior neck cervical wound. Intraoperatively noted to have 2 small areas of drainage in the center of the wound which was noted to be 4 inches x 2 inches and half an inch deep tracking down to the bone. Clinically soft tissue appeared to be infected. Multiple cultures were taken and a wound VAC was placed. Gram stain thus far is with rare gram-positive rods. Culture is pendi ng. Patient has remained afebrile during course of admission. Review of Systems General: Reports: 10 or more systems reviewed and unremarkable except in HPI and below Const: Denies: fever(s), chills or body aches Eyes: Denies: change in vision, blurry vision or photophobia ENMT: Reports: hoarseness; Denies: throat pain, enlarged tonsils, odynophagia or nasal congestion Card: Denies: chest pain, palpitations, irregular heart rhythm, edema, swelling of feet/ankles, lightheadedness, pre-syncope, dyspnea on exertion or orthopnea Resp: Denies: dyspnea, productive cough, non-productive cough, wheezing, stridor, pain on inspiration, change in phlegm color, hemoptysis or chest congestion GI: Denies: abdominal pain, nausea, vomiting, hematemesis, coffee ground emesis, dysphagia, heartburn, diarrhea, constipation, GI cramping, change in stool character, hematochezia or melena : Denies: flank pain, dysuria, urinary frequency, urinary urgency, urinary hesitancy or hematuria Musc: Denies: neck pain, back pain, extremity pain, joint swelling, joint warmth or deformity Neuro: Denies: headache(s), numbness in extremities, weakness in extremities, sensory changes, difficulty walking, frequent falls, dizziness, vertigo, behavioral changes, Slurred speech present or seizure-like activity Psych: Denies: anxiety, depression, suicidal ideation or homicidal ideation Endo: Denies: polyuria, polydipsia, tired all the time, cold intolerance or hot flashes Dandy/Lymph: Denies: easy bruising or easy bleeding Medications/Allergies Home Medications Medication Instructions Recorded Confirmed Last Taken Type Custom Foot Orthotics Bilaterally #1 ea 12/12/20 03/05/22 Unknown Rx Night splint #1 ea 01/02/21 03/05/22 Unknown Rx [place] J collar #1 ea 10/23/21 03/05/22 Unknown Rx Bone Growth Stimulator #1 ea 01/02/22 03/05/22 Unknown Rx acetaminophen 500 mg tablet 1,000 mg PO BID PRN Pain 01/03/22 03/05/22 03/03/22 History ondansetron HCl 8 mg tablet 8 mg PO Q8H PRN nausea and 01/17/22 03/05/22 02/19/22 Rx vomiting #30 tabs ferrous gluconate 324 mg (37.5 mg 324 mg PO BIDWM #60 tabs 01/28/22 03/05/22 03/03/22 Rx iron) tablet fluoxetine 10 mg capsule 20 mg PO DAILY #60 caps 01/28/22 03/05/22 03/03/22 Rx lisinopril 20 mg tablet 20 mg PO DAILY #30 tabs 01/28/22 03/05/22 03/03/22 Rx lithium carbonate 600 mg capsule 600 mg PO BID 03/01/22 03/05/22 03/03/22 Hist ory naproxen 500 mg tablet 500 mg PO BID 03/01/22 03/05/22 03/03/22 History cephalexin 500 mg capsule 500 mg PO QID 03/04/22 03/05/22 03/03/22 History Allergies Allergy/AdvReac Type Severity Reaction Status Date / Time No Known Allergies Allergy Verified 03/04/22 09:47 Current Medications Generic Name Dose Route Start Last Admin Trade Name Freq PRN Reason Stop Dose Admin Docusate Sodium 100 mg 03/04/22 18:00 03/05/22 17:23 Docusate Sodium 100 Mg Capsule PO 100 mg BID LISBET Administration Ferrous Gluconate 324 mg 03/04/22 18:00 03/05/22 17:23 Ferrous Gluconate 324 Mg Tablet PO 324 mg BIDWM LISBET Administration Fluoxetine HCl 20 mg 03/05/22 09:00 03/05/22 08:27 Fluoxetine 10 Mg Capsule PO 20 mg DAILY LISBET Administration Lactated Ringer's 1,000 mls @ 90 mls/hr 03/04/22 12:00 03/06/22 02:05 Lactated Ringers IV 90 mls/hr .[id number] LISBET Administration Lisinopril 20 mg 03/05/22 09:00 03/05/22 08:27 Lisinopril 20 Mg Tablet PO 20 mg DAILY LISBET Administration Twodot Carbonate 600 mg 03/04/22 18:00 03/05/22 17:23 Twodot Carbonate 300 Mg Capsule PO 600 mg BID LISBET Administration PFSH Acute PFSH: Medical History 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 Bipolar disorder Cervical spondylosis with myelopathy Charcot's joint of foot CPAP (continuous positive airway pressure) dependence Depression Erectile dysfunction Hammer toe of left foot Hypertension Obstructive sleep apnea Surgical History H/O lumpectomy Status post cervical spinal fusion Status post right foot surgery Family History Denies family history of Diabetes CAD (coronary artery disease) Clotting disorder Dementia Hyperlipidemia Psychiatric illness Chronic kidney disease (CKD) Suicide Anesthesia complication Bleeding disorder Family history of premature coronary artery disease Lung disease Cancer Hypertension Stroke Social History Smoking and tobacco status: former smoker (40+ years ) Second hand smoke exposure: No Smoking risk assessment/counseling performed?: No Alcohol intake: never Desire information about alcohol rehabilitation?: No Counseling given: No Desire information about substance/drug rehabilitation?: No Counseling given: No Adopted: No Caregiver/support person: No Vitals/I&O/Wt Last Vital Signs Temp 97.7 F 03/06/22 04:59 Pulse 80 03/06/22 04:59 Resp 16 03/06/22 04:59 BP 140/83 03/06/22 04:59 Pulse Ox 98 03/06/22 04:59 O2 Del Method 03/06/22 04:59 03/05/22 03/05/22 03/06/22 14:59 22:59 06:59 Intake Total 1480 / 1480 360 / 1840 1240 / 3080 Output Total 1550 / 1550 600 / 2150 Balance 1480 / 1480 -1190 / 290 640 / 930 Weight last 48 hrs Weight 113.398 kg Physical Exam Narrative: General: No acute distress, AO x3 HEENT: PERRLA, pupils bilaterally equal and reactive, pallors not present Chest: Normal vesicular breath sounds, no added sounds, equal good air entry bilaterally CVS: S1-S2 regular, no murmurs, no tachycardia, no gallops, no rubs Abdomen: Soft, nontender, no organomegaly, bowel sounds present Neuro: No focal deficits, no facial deformity, AO x3, power 5/5 in all limbs Extremities: wound vac in place Data : 03/06/22 07:36 03/06/22 07:36 Micro: Microbiology 03/04/22 11:39 Gram Stain - Final Neck Anaerobic Culture - Preliminary Abscess Culture - Preliminary 03/04/22 11:39 Gram Stain - Final Neck Wound Culture - Preliminary A&P Assessment and plan (1) Wound dehiscence, surgical: (2) Soft tissue infection: Plan Patient with recent HPI as noted above currently admitted for deep skin and soft tissue infection involving surgical area over the C-spine. Per review of op note changes are extending down to the level of bone. Status post I&D on 03/04/2022. Next gram stain thus far shows gram-positive rods. Culture remains pending. Resuming deep space extension with underlying hardware, will recommend at least 6 weeks of directed IV antibiotic treatment. For now we will place patient on empiric treatment with vancomycin, final antibiotic recommendations are pending isolation of organism. CBC, baseline CRP ESR. PICC line to facilitate long-term antibiotics. Check blood culture. Will follow Coding Level of Care Code Acute [employer] Executive Director for Ermias Wright Diagnoses Wound dehiscence, surgical T81.31XA Soft tissue infection L08.9
[2022-03-06 07:58] LABS: Basophils # 0.1 10^3/uL (0.0-0.1); Basophils % 0.8 %; Eosinophils # 0.2 10^3/uL (0.0-0.8); Eosinophils % 2.1 %; Hematocrit 28.1 % (42.0-52.0); Hemoglobin 8.6 g/dL (11.7-16.6); Lymphocytes # 1.6 10^3/uL (0.8-4.8); Mean Corpuscular HGB Conc 30.6 g/dL (30.0-36.0); Mean Corpuscular Hemoglobin 27.7 pg (28.0-34.0); Mean Corpuscular Volume 90.4 fl (80-94); Mean Platelet Volume 9.6 fL (7.4-10.4); Monocytes # 0.7 10^3/uL (0.2-0.9); Monocytes % 8.7 %; Neutrophils # 5.14 10^3/uL (1.8-7.7); Nucleated Red Blood Cells % 0 %; Platelet Count 366 10^3/cmm (130-400); Red Blood Count 3.11 10^6/uL (4.1-5.3); Red Cell Distribution Width 15.1 % (12.1-15.1); White Blood Count 7.8 10^3/uL (4.0-10.0)
[2022-03-06 08:03] LABS: Erythrocyte Sedimentation Rate 16 mm/hr (0-10)
[2022-03-06 08:20] LABS: Alanine Aminotransferase < 5 U/L (0-41); Albumin Level 3.1 g/dL (3.5-5.2); Alkaline Phosphatase 53 U/L (40-130); Anion Gap 13.1 (5-19); Aspartate Amino Transferase 6 U/L (0-40); Blood Urea Nitrogen 12 mg/dL (6-20); C Reactive Protein 5.2 mg/L (0.0-4.9); Calcium 8.9 mg/dL (8.5-10.5); Carbon Dioxide 26 mmol/L (22-29); Chloride 104 mmol/L (98-107); Globulin 2.7 g/dL (1.3-4.6); Glomerular Filtration Rate 100.7 mL/min (90-130); Glucose 107 mg/dL (65-115); Osmolality Calculated 288 mOsm/kg (285-295); Potassium 4.1 mmol/L (3.5-5.1); Sodium 139 mmol/L (136-145); Total Bilirubin 0.2 mg/dL (0.15-1.2); Total Protein 5.8 g/dL (6.6-8.7)
[2022-03-06] MEDS: lisinopril 20 mg Tablet PO (08:46)
[2022-03-06] MEDS: lithium carbonate 300 mg Capsule 600 MG PO ×2 (08:49→17:31)
--- NOTE | 2022-03-06 10:14 | P.ANESASSM_ITS ---
Pre-Anesthetic Assessment Height/Weight: Height 1.91 m Weight 113.398 kg Temp Pulse Resp BP Pulse Ox O2 Del Method 98.1 F 62 16 135/89 97 03/06/22 08:00 03/06/22 08:00 03/06/22 08:00 03/06/22 08:00 03/06/22 08:00 03/06/22 08:00 Preop Diagnosis: Surgical wound dehiscence Operation Date: 03/04/22 11:30 Proposed Procedures p Incision and Drainage CERVICAL SPINE 11754 Z98.1(Not Applicable) - Aniket Maher DO Operation Date: 03/06/22 11:45 Proposed Procedures p Incision and Drainage posterior cervical spine(Not Applicable) - Aniket Maher, DO Familial anesthetic complications: none Was Beta Faustina taken within 24 hours: N/A Was Clonidine taken within 24 hours: N/A Last intake: Intake Last Liquid Date 03/06/22 Last Liquid Time 08:40 Last Solid Date 03/05/22 Last Solid Time 20:00 Social No alcohol and No tobacco Exam alert, oriented x 3, clear to auscultation bilaterally and regular rate & rhythm Airway Submandibular: within normal limits Cervical ROM: Other (decreased flexion/extension with previous ACDF) Mallampati: Class II Dentition: chipped Pulmonary Sleep Apnea CV/HEM Hypertension None reported Hepatic None reported GI None reported Metabolic Diabetes Mellitus and Morbid Obesity [facility] None reported Neuropsych Neuropathy Anesthetic Plan ASA status: 3 Anesthesia: General Other: Patient declined detailed risk benefit discussion today. Risk of > 500 ml blood loss (7ml/kg in children): No Medications/Allergies Home Medications Medication Instructions Recorded Confirmed Last Taken Type Custom Foot Orthotics Bilaterally #1 ea 12/12/20 03/05/22 Unknown Rx Night splint #1 ea 01/02/21 03/05/22 Unknown Rx Broome J collar #1 ea 10/23/21 03/05/22 Unknown Rx Bone Growth Stimulator #1 ea 01/02/22 03/05/22 Unknown Rx acetaminophen 500 mg tablet 1,000 mg PO BID PRN Pain 01/03/22 03/05/22 03/03/22 History ondansetron HCl 8 mg tablet 8 mg PO Q8H PRN nausea and 01/17/22 03/05/22 02/19/22 Rx vomiting #30 tabs ferrous gluconate 324 mg (37.5 mg 324 mg PO BIDWM #60 tabs 01/28/22 03/05/22 03/03/22 Rx iron) tablet fluoxetine 10 mg capsule 20 mg PO DAILY #60 caps 01/28/22 03/05/22 03/03/22 Rx lisinopril 20 mg tablet 20 mg PO DAILY #30 tabs 01/28/22 03/05/22 03/03/22 Rx lithium carbonate 600 mg capsule 600 mg PO BID 03/01/22 03/05/22 03/03/22 History naproxen 500 mg tablet 500 mg PO BID 03/01/22 03/05/22 03/03/22 History cephalexin 500 mg capsule 500 mg PO QID 03/04/22 03/05/22 03/03/22 History Allergies Allergy/AdvReac Type Severity Reaction Status Date / Time No Known Allergies Allergy Verified 03/04/22 09:47 Current Medications Generic Name Dose Route Start Last Admin Trade Name Freq PRN Reason Stop Dose Admin Docusate Sodium 100 mg 03/04/22 18:00 03/06/22 08:47 Docusate Sodium 100 Mg Capsule PO Not Given BID LISBET Ferrous Gluconate 324 mg 03/04/22 18:00 03/06/22 08:47 Ferrous Gluconate 324 Mg Tablet PO Not Given BIDWM LISBET Fluoxetine HCl 20 mg 03/05/22 09:00 03/06/22 08:50 Fluoxetine 10 Mg Capsule PO Not Given DAILY LISBET Lactated Ringer's 1,000 mls @ 90 mls/hr 03/04/22 12:00 03/06/22 02:05 Lactated Ringers IV 90 mls/hr .[id number] LISBET Administration Vancomycin HCl 1,800 mg/ 500 mls @ 250 mls/hr 03/06/22 08:30 03/06/22 08:47 Sodium Chloride IV 250 mls/hr Q8H LISBET Administration Lisinopril 20 mg 03/05/22 09:00 03/06/22 08:46 Lisinopril 20 Mg Tablet PO 20 mg DAILY LISBET Administration [place] Carbonate 600 mg 03/04/22 18:00 03/06/22 08:49 [place]le Carbonate 300 Mg Capsule PO 600 mg BID LISBET Administration PFSH Anesthesia Medical History 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 Bipolar disorder Cervical spondylosis with myelopathy Charcot's joint of foot CPAP (continuous positive airway pressure) dependence Depression Erectile dysfunction Hammer toe of left foot Hypertension Obstructive sleep apnea Surgical History H/O lumpectomy Status post cervical spinal fusion Status post right foot surgery Family History Denies family history of Diabetes CAD (coronary artery disease) Clotting disorder Dementia Hyperlipidemia Psychiatric illness Chronic kidney disease (CKD) Suicide Anesthesia complication Bleeding disorder Family history of premature coronary artery disease Lung disease Cancer Hypertension Stroke Social History Smoking and tobacco status: former smoker (40+ years ) Second hand smoke exposure: No Smoking risk assessment/counseling performed?: No Alcohol intake: never Desire information about alcohol rehabilitation?: No Counseling given: No Desire information about substance/drug rehabilitation?: No Counseling given: No Adopted: No Caregiver/support person: No Data Anesthesia : 03/06/22 07:36 03/06/22 07:36 Short CBC 03/06/22 Range/Units 07:36 WBC 7.8 (4.0-10.0) 10^3/uL Hgb 8.6 L (11.7-16.6) g/dL Hct 28.1 L (42.0-52.0) % MCV 90.4 (80-94) fl Plt Count 366 (130-400) 10^3/cmm Neut % (Auto) 66.0 % Neut # (Auto) 5.14 (1.8-7.7) 10^3/uL BMP 03/04/22 03/06/22 10:09 07:36 Sodium 137 139 Potassium 4.5 4.1 Chloride 104 104 Carbon Dioxide 24 26 BUN 12 12 Creatinine 0.8 0.8 Glucose 92 107 Calcium 9.2 8.9 Liver Function 03/06/22 Range/Units 07:36 Total Bilirubin 0.2 (0.15-1.2) mg/dL AST 6 (0-40) U/L ALT < 5 (0-41) U/L Alkaline Phosphatase 53 (40-130) U/L Albumin 3.1 L (3.5-5.2) g/dL Coags 03/06/22 03/06/22 07:36 07:36 ESR 16 H C-Reactive Protein 5.2 H Microbiology 03/06/22 07:42 Blood Culture - Preliminary Blood SPECIMEN COLLECTED 03/06/22 07:36 Blood Culture - Preliminary Blood SPECIMEN COLLECTED 03/04/22 11:39 Gram Stain - Final Neck Anaerobic Culture - Preliminary Abscess Culture - Preliminary 03/04/22 11:39 Gram Stain - Final Neck Wound Culture - Preliminary Cardiac Studies: No Data to Display
[2022-03-06] MEDS: sodium chloride 0.9% 1,000 ML 30 ML IV (10:33)
--- NOTE | 2022-03-06 12:10 | W.PM.OPSUD ---
Surgery/Procedure H&P Update DATE OF PROCEDURE: March 06, 2022 DATE H&P PERFORMED: 02/28/22 H&P UPDATE INFORMATION: I have reviewed H&P completed within last 30 days, I have examined patient prior to procedure and No changes to prior documentation PREOP DIAGNOSIS: Wound Dehisence PLANNED PROCEDURE: Operation Date: 03/04/22 11:30 Proposed Procedures p Incision and Drainage CERVICAL SPINE 76551 Z98.1(Not Applicable) - Aniket Maher DO Operation Date: 03/06/22 11:45 Proposed Procedures p Incision and Drainage posterior cervical spine(Not Applicable) - Aniket Maher DO
[2022-03-06] MEDS: lidocaine 2% INJ 20 mL INJECTION (13:30)
--- NOTE | 2022-03-06 13:57 | SUR.OPER ---
1327 wound vac restarted at 125 mmhg, good seal demonstrated
--- NOTE | 2022-03-06 13:58 | SUR.PHASEI ---
1341 PT TO PACU AWAKE ALERT ORIENTED X 3 MONITOR SR WITH NO ECTOPY, IV TO LT HAND #20 NS 500 ML UP AT KVO RATE PER GRAVITY, ID BAND TO RT WRIST, PT ID'D WITH 2 IDENTIFERS, DRESSING TO POSTERIOR NECK D/I WITH WOUNDVAC TO SUCTION, DRAINING SMALL AMT RED DRAINAGE MOVING IN DRAIN TUBE. C COLLAR IN PLACE, PT WITH VERY STRONG BILATERALLY EQUAL SHOE REPAIRER HELPER AND DORSAL FLEX AND EXTENSION TO FEET. BILAT SCDS ON AND WORKING . 1400 PT REMAINS AWAKE ALERT REFUSED ICE CHIPS DRESSING UNCHANGED, MONITOR UNCHANGED. WOUND VAC WITH GOOD SUCTION.
--- NOTE | 2022-03-06 14:04 | SUR.PHASEI ---
PT WELL RECOVERED , NO CHANGES TO SURGICAL SITE OR WOUND VAC, WILL CALL REPORT TO FLOOR AND UPDATE PT FAMILY.
--- NOTE | 2022-03-06 14:07 | P.OP_ITS ---
Operative Report Date of procedure: March 06, 2022 Pre-op diagnosis: Preop Diagnosis Wound Dehisence Preop Diagnosis Surgical wound dehiscence Post-op diagnosis: same Procedure done: 1. I+D of wound down to bone (Size 4 in x 2 in by 1/2 inch deep) 2. Re application of wound Vac Surgeon: Aniket Maher Student Development Specialist: Michel Monsivais Student Development Specialist: The surgical aide, Michel Monsivais, PAC was needed for his expertise under the microscope. He was important and necessary throughout the procedure to complete in a safe and timely manner. He assisted with patient positioning prepping and draping tissue retraction suctioning of the operative field protection of the dural sac and tissue closure Estimated blood loss (mL): 5 Procedure: 1. I+D of wound down to bone (Size 4 in x 2 in by 1/2 inch deep) 2. Re application of wound Vac The previous wound VAC was removed. The edges of the tissues were bleeding. The wound was 4 inches x 2 inches by about a half an inch deep.? Tracked down to the bone.? Rongeur was used to rongeur out some of the bone fragments and soft tissues.? Cultures were taken.? Wound was irrigated with saline.? A wound VAC was placed tracking and deep to help close the space. Patient was then transferred to the PACU in stable condition.
--- NOTE | 2022-03-06 15:11 | SUR.PHASEI ---
1430 PT TO ROOM AWAKE ALERT TALKATIVE WITH STAFF, PT NURSE MIRANDA NOW AT BEDSIDE HANDOFF GIVEN PT IN ROOM EARLIER, JUST WAITING FOR NURSE, FAMILY IN ROOM TALKING WITH PT NO PROBLEMS OR ISSUES NOTED.
--- NOTE | 2022-03-06 16:38 | ANE.PACU2 ---
Inpatient post-anesthesia follow up: Airway intact: Yes Vital signs: Temperature 98.7 F Pulse Rate 75 Respiratory Rate 18 Blood Pressure 125/80 Pulse Oximetry 94 Oxygen Delivery Me thod Room Air Oxygen Flow Rate Fraction of Inspir ed Oxygen Hydration adequate: Yes Nausea and vomiting: No Pain level: 1 Mental status: Baseline
[2022-03-06] MEDS: ferrous gluconate 324 mg Tablet PO (17:32)
[2022-03-06] MEDS: vancomycin 1,500 MG/300 ML PIGGYBACK 200 MG IV (17:58)
--- NOTE | 2022-03-06 20:24 | PM.PN ---
Subjective Subjective: Infectious disease progress note No acute interim events. Patient plan to be taken back to the OR for I&D and change of wound VAC. Further cultures to be taken today. Denies any new specific complaints. Still awaiting culture from 03 04. Medications: Reviewed: Yes Vitals/I&O/Wt Last Vital Signs Temp 98.7 F 03/06/22 14:05 Pulse 86 03/06/22 16:39 Resp 16 03/06/22 16:39 BP 130/83 03/06/22 16:39 Pulse Ox 94 03/06/22 16:00 O2 Del Method 03/06/22 16:00 03/06/22 03/06/22 03/06/22 06:59 14:59 22:59 Intake Total 1240 / 3080 2029 Output Total 600 / 2150 900 / 905 Balance 640 / 930 2024 -900 / 1125 Physical Exam Narrative: General: No acute distress, AO x3 HEENT: PERRLA, pupils bilaterally equal and reactive, pallors not present Chest: Normal vesicular breath sounds, no added sounds, equal good air entry bilaterally CVS: S1-S2 regular, no murmurs, no tachycardia, no gallops, no rubs Abdomen: Soft, nontender, no organomegaly, bowel sounds present Neuro: No focal deficits, no facial deformity, AO x3, power 5/5 in all limbs Extremities: Wound VAC over C-spine Data : 03/06/22 07:36 03/06/22 07:36 Micro: Microbiology 03/04/22 11:39 Gram Stain - Final Neck Anaerobic Culture - Preliminary Abscess Culture - Preliminary 03/04/22 11:39 Gram Stain - Final Neck Wound Culture - Preliminary 03/06/22 07:42 Blood Culture - Preliminary Blood SPECIMEN COLLECTED 03/06/22 07:36 Blood Culture - Preliminary Blood SPECIMEN COLLECTED A&P Assessment and plan (1) Wound dehiscence, surgical: (2) Soft tissue infection: Plan Patient with recent HPI as noted above currently admitted for deep skin and soft tissue infection involving surgical area over the C-spine. Per review of op note changes are extending down to the level of bone. Status post I&D on 03/04/2022. Plan to be taken to the OR again today. gram stain from March 04 thus far shows gram-positive rods. Culture remains pending. Presuming deep space infection with extension to underlying hardware, will recommend at least 6 weeks of directed IV antibiotic treatment. Continue empiric treatment with vancomycin, final antibiotic recommendations are pending isolation of organism. CBC, baseline CRP ESR noted. PICC line to facilitate long-term antibiotics. pending blood culture. Will follow Attestations Medical Necessity Statement*: Per admitting Coding Level of Care Code Acute Physician Coding Specialist for lucinda Wright Diagnoses Wound dehiscence, surgical T81.31XA Soft tissue infection L08.9
[2022-03-07] VITALS: BP 104/69; PULSE 72; RESP 17; TEMP 36.6; O2SAT 97
[2022-03-07] MEDS: vancomycin 1,500 MG/300 ML PIGGYBACK 200 MG IV ×2 (01:08→14:32)
[2022-03-07 03:24] VITALS: BP 122/78; PULSE 60; RESP 17; TEMP 36.8; O2SAT 95
--- NOTE | 2022-03-07 07:25 | P.PN_ITS ---
Subjective Subjective: POD 1 of Second I and D procedure: HD 3 Patient resting comfortably with CPAP and wound VAC intact. No complaints of arm or leg pain, denies headaches, shortness of breath or chest pain. Vitals/I&O/Wt Last Vital Signs Temp 98.2 F 03/07/22 03:24 Pulse 60 03/07/22 03:24 Resp 17 03/07/22 03:24 BP 122/78 03/07/22 03:24 Pulse Ox 95 03/07/22 03:24 O2 Del Method 03/07/22 03:24 03/06/22 03/07/22 03/07/22 22:59 06:59 14:59 Intake Total 300 / 2330 Output Total 900 / 905 450 / 1355 Balance -600 / 1425 -450 / 975 Physical Exam Narrative: He is alert orient x3 has good general appearance normal mood and affect.? Wound VAC intact and functioning.? Moving both upper extremities without any limitations.? Good strength throughout.? Hands are warm good cap refill moving both lower extremities with good strength good sensation light touch throughout all 4 extremities. Data : 03/06/22 07:36 03/06/22 07:36 Micro: Microbiology 03/04/22 11:39 Gram Stain - Final Neck Anaerobic Culture - Preliminary Abscess Culture - Preliminary 03/04/22 11:39 Gram Stain - Final Neck Wound Culture - Preliminary 03/06/22 07:42 Blood Culture - Preliminary Blood SPECIMEN COLLECTED 03/06/22 07:36 Blood Culture - Preliminary Blood SPECIMEN COLLECTED A&P Assessment and plan (1) Wound dehiscence, surgical: Continue wound VAC. We will await the latest tissue cultures for infectious disease to organize a treatment plan. Continue wound VAC management. financial services internship to arrange home health care. (2) Acute blood loss as cause of postoperative anemia: Attestations Medical Necessity Statement*: Defer to infectious disease Coding Level of Care Code Acute Embedded Software Architect for [facility] Diagnoses Wound dehiscence, surgical T81.31XA Acute blood loss as cause of postoperative anemia D62
[2022-03-07 07:37] VITALS: BP 111/69; PULSE 60; RESP 18; TEMP 36.7; O2SAT 97
[2022-03-07 08:37] LABS: Vancomycin Trough 24.8 ug/mL (10-15)
[2022-03-07] MEDS: lactated ringers 1,000 ML 90 ML IV ×2 (08:38→22:47)
[2022-03-07] MEDS: fluoxetine 10 mg Capsule 20 MG PO (08:39)
[2022-03-07] MEDS: lithium carbonate 300 mg Capsule 600 MG PO ×2 (08:39→17:28)
[2022-03-07] MEDS: lisinopril 20 mg Tablet PO (08:40)
[2022-03-07] MEDS: ferrous gluconate 324 mg Tablet PO ×2 (08:40→17:28)
[2022-03-07 11:25] VITALS: BP 113/76; PULSE 68; RESP 18; TEMP 36.8; O2SAT 98
--- NOTE | 2022-03-07 12:24 | XR_ITS ---
WS: [id number] XR chest 1V portable [id number] REASON FOR EXAM: Post PICC placement FINDINGS: Right arm PICC placement. The tip of the PICC line is in the distal superior vena cava just above the right atrium. Proper position for use. PICC line position was discussed over the phone at the time of the placement. XR/XR chest 1V portable [id number] IMPRESSION: Right arm PICC line placement as above.
[2022-03-07 15:23] VITALS: BP 112/64; PULSE 71; RESP 18; TEMP 36.8; O2SAT 98
[2022-03-07 19:24] VITALS: BP 118/76; PULSE 74; RESP 18; TEMP 36.7; O2SAT 99
[2022-03-08] VITALS: BP 118/71; PULSE 65; RESP 16; TEMP 36.8; O2SAT 94
[2022-03-08] MEDS: vancomycin 1,500 MG/300 ML PIGGYBACK 200 MG IV ×2 (02:59→14:52)
[2022-03-08 04:00] VITALS: BP 136/79; PULSE 63; RESP 15; TEMP 36.7; O2SAT 97
--- NOTE | 2022-03-08 04:39 | PM.PN ---
Subjective Subjective: Status post I&D agai Gram stain from 03/06/2022 with gram-positive cocci.Previously reported gram-positive rods from 03/04 have now additionally been updated to reflect coag positive Staphylococcus, likely staph aureus. Pending whether this is MSSA versus MRSA. Medications: Reviewed: Yes Vitals/I&O/Wt Last Vital Signs Temp 98.3 F 03/08/22 00:00 Pulse 65 03/08/22 00:00 Resp 16 03/08/22 00:00 BP 118/71 03/08/22 00:00 Pulse Ox 94 03/08/22 00:00 O2 Del Method 03/08/22 00:00 03/07/22 03/07/22 03/08/22 14:59 22:59 06:59 Intake Total 1020 / 1020 1780 / 2800 Balance 1020 / 1020 1780 / 2800 Physical Exam Narrative: General: No acute distress, AO x3 HEENT: PERRLA, pupils bilaterally equal and reactive, pallors not present Chest: Normal vesicular breath sounds, no added sounds, equal good air entry bilaterally CVS: S1-S2 regular, no murmurs, no tachycardia, no gallops, no rubs Abdomen: Soft, nontender, no organomegaly, bowel sounds present Neuro: No focal deficits, no facial deformity, AO x3, power 5/5 in all limbs Data : 03/06/22 07:36 03/06/22 07:36 Micro: Microbiology 03/04/22 11:39 Gram Stain - Final Neck Anaerobic Culture - Preliminary Abscess Culture - Final 03/04/22 11:39 Gram Stain - Final Neck Wound Culture - Preliminary Coag positive Staphylococcus 03/06/22 13:19 Gram Stain - Final Neck Tissue Culture - Preliminary 03/06/22 07:42 Blood Culture - Preliminary Blood NEGATIVE TO DATE 03/06/22 07:36 Blood Culture - Preliminary Blood NEGATIVE TO DATE A&P Assessment and plan (1) Wound dehiscence, surgical: (2) Soft tissue infection: (3) Hardware complicating wound infection: Plan Patient currently admitted for deep skin and soft tissue infection involving surgical area over the C-spine. Per review of op note changes are extending down to the level of bone. Presumed underlying hardware infection. Status post I&D on 03/04/2022 and 03/06/22. from March 04, Cx with coag positive staph, likely staph aureus, pending final identification. (updated from [facility]). From 03/06 gram stain with GPCs, pending cx Presuming deep space infection with extension to underlying hardware, will recommend at least 6 weeks of directed IV antibiotic treatment. (03/04-04/15). Will choose vancomycin as medication of choice as it is not known at this time if isolate is MSSA or MRSA. Okay from ID standpoint for discharge if no further debridement planned per ortho Will follow Or cx as outaptient to follow up final identification. May need chronic suppression after completing acute treatment. HH services requested. Picc line placed twice a week vancomycin trough and cr check wound vac care and wound care per ortho F/up ID clinic on Apr Attestations Medical Necessity Statement*: per admitting Coding Level of Care Code Acute Lip And Gate Builder for [facility] Fwd Diagnoses Wound dehiscence, surgical T81.31XA Soft tissue infection L08.9 Hardware complicating wound infection T84.7XXA
[2022-03-08 08:00] VITALS: BP 134/87; PULSE 64; RESP 16; TEMP 37; O2SAT 94
--- NOTE | 2022-03-08 08:31 | PM.PN ---
Subjective Subjective: POD 2 of Second I and D procedure:? HD 4 Patient resting comfortably with CPAP and wound VAC intact.? No complaints of arm or leg pain, denies headaches, shortness of breath or chest pain. Wanting to go home to help his significant other with her care. Vitals/I&O/Wt Last Vital Signs Temp 98.6 F 03/08/22 08:00 Pulse 64 03/08/22 08:00 Resp 16 03/08/22 08:00 BP 134/87 03/08/22 08:00 Pulse Ox 94 03/08/22 08:00 O2 Del Method 03/08/22 08:00 03/07/22 03/08/22 03/08/22 22:59 06:59 14:59 Intake Total 1780 / 2800 300 / 300 Balance 1780 / 2800 300 / 300 Physical Exam Narrative: He is alert orient x3 has good general appearance normal mood and affect.? Wound VAC intact and functioning.? Moving both upper extremities without any limitations.? Good strength throughout.? Hands are warm good cap refill moving both lower extremities with good strength good sensation light touch throughout all 4 extremities. Data : 03/06/22 07:36 03/06/22 07:36 Micro: Microbiology 03/04/22 11:39 Gram Stain - Final Neck Anaerobic Culture - Preliminary Abscess Culture - Final 03/04/22 11:39 Gram Stain - Final Neck Wound Culture - Preliminary Coag positive Staphylococcus 03/06/22 13:19 Gram Stain - Final Neck Tissue Culture - Preliminary 03/06/22 07:42 Blood Culture - Preliminary Blood NEGATIVE TO DATE 03/06/22 07:36 Blood Culture - Preliminary Blood NEGATIVE TO DATE A&P Assessment and plan (1) Wound dehiscence, surgical: Have the nursing staff to change the wound VAC prior to discharge. Continue antibiotics with PICC line per infectious disease. Instructed him to be cautious with any lifting activities. To use extra precaution with sanitary measures based on his significant others medical condition. We will see him back in the office in 1 week's time for reevaluation. He will continue to follow-up with infectious disease for peak and troughs. (2) Acute blood loss as cause of postoperative anemia: Attestations Medical Necessity Statement*: DC home today Coding Level of Care Code Acute Acrylic Fabricator for Ermias Wright Diagnoses Wound dehiscence, surgical T81.31XA Acute blood loss as cause of postoperative anemia D62
[2022-03-08] MEDS: fluoxetine 10 mg Capsule 20 MG PO (08:58)
[2022-03-08] MEDS: lisinopril 20 mg Tablet PO (08:58)
[2022-03-08] MEDS: ferrous gluconate 324 mg Tablet PO (08:58)
[2022-03-08] MEDS: lithium carbonate 300 mg Capsule 600 MG PO (09:03)
[2022-03-08 12:00] VITALS: BP 138/83; PULSE 78; RESP 16; TEMP 37.3; O2SAT 97
[2022-03-08 16:00] VITALS: BP 131/83; PULSE 80; RESP 16; TEMP 36.9; O2SAT 97
--- NOTE | 2022-03-11 16:45 | PM.DCS ---
Discharge Providers Date of Admission: 03/04/22 11:56 Date of Discharge: March 08, 2022 Attending Provider at Admission: Aniket Maher DO Attending Provider at Discharge: Aniket Maher DO Primary Care Provider: GALO Young Diagnoses at Discharge Discharge Diagnosis (1) Wound dehiscence, surgical: Status: Acute (2) Acute blood loss as cause of postoperative anemia: Status: Acute Reason for Visit Reason for Visit: I&D CERVICAL SPINE 03020 Hospital Course Hospital Course uneventful wound VAC given Discharge Data Studies Completed and Pending Completed Studies During Hospitalization Category Date Time Status CXRP [XR chest 1V portable [id number]] Routine Exams 03/07/22 12:24 Completed Radiology Impressions Chest X-Ray 03/07/22 12:24 IMPRESSION: Right arm PICC line placement as above. Laboratory Results WBC 7.8 10^3/uL (4.0-10.0) 03/06/22 07:36 RBC 3.11 10^6/uL (4.1-5.3) L 03/06/22 07:36 Hgb 8.6 g/dL (11.7-16.6) L 03/06/22 07:36 Hct 28.1 % (42.0-52.0) L 03/06/22 07:36 MCV 90.4 fl (80-94) 03/06/22 07:36 MCH 27.7 pg (28.0-34.0) L 03/06/22 07:36 MCHC 30.6 g/dL (30.0-36.0) 03/06/22 07:36 RDW 15.1 % (12.1-15.1) 03/06/22 07:36 Plt Count 366 10^3/cmm (130-400) 03/06/22 07:36 MPV 9.6 fL (7.4-10.4) 03/06/22 07:36 Neut % (Auto) 66.0 % 03/06/22 07:36 Lymph % (Auto) 21.0 % 03/06/22 07:36 [place] % (Auto) 8.7 % 03/06/22 07:36 Eos % (Auto) 2.1 % 03/06/22 07:36 Baso % (Auto) 0.8 % 03/06/22 07:36 Neut # (Auto) 5.14 10^3/uL (1.8-7.7) 03/06/22 07:36 Lymph # (Auto) 1.6 10^3/uL (0.8-4.8) 03/06/22 07:36 [place] # (Auto) 0.7 10^3/uL (0.2-0.9) 03/06/22 07:36 Eos # (Auto) 0.2 10^3/uL (0.0-0.8) 03/06/22 07:36 Baso # (Auto) 0.1 10^3/uL (0.0-0.1) 03/06/22 07:36 Nucleated RBC % (auto) 0 % 03/06/22 07:36 Nucleated RBCs # 0.0 /100WBC 03/06/22 07:36 ESR 16 mm/hr (0-10) H 03/06/22 07:36 Sodium 139 mmol/L (136-145) 03/06/22 07:36 Potassium 4.1 mmol/L (3.5-5.1) 03/06/22 07:36 Chloride 104 mmol/L (98-107) 03/06/22 07:36 Carbon Dioxide 26 mmol/L (22-29) 03/06/22 07:36 Anion Gap 13.1 (5-19) 03/06/22 07:36 BUN 12 mg/dL (6-20) 03/06/22 07:36 Creatinine 0.8 mg/dL (0.7-1.2) 03/06/22 07:36 GFR Calculation 100.7 mL/min (90-130) 03/06/22 07:36 Glucose 107 mg/dL (65-115) 03/06/22 07:36 Calculated Osmolality 288 mOsm/kg (285-295) 03/06/22 07:36 Calcium 8.9 mg/dL (8.5-10.5) 03/06/22 07:36 Total Bilirubin 0.2 mg/dL (0.15-1.2) 03/06/22 07:36 AST 6 U/L (0-40) 03/06/22 07:36 ALT < 5 U/L (0-41) 03/06/22 07:36 Alkaline Phosphatase 53 U/L (40-130) 03/06/22 07:36 C-Reactive Protein 5.2 mg/L (0.0-4.9) H 03/06/22 07:36 Total Protein 5.8 g/dL (6.6-8.7) L 03/06/22 07:36 Albumin 3.1 g/dL (3.5-5.2) L 03/06/22 07:36 Globulin 2.7 g/dL (1.3-4.6) 03/06/22 07:36 Vancomycin Trough 24.8 ug/mL (10-15) H 03/07/22 07:50 Vitals Last Vital Signs Temp 98.4 F 03/08/22 16:00 Pulse 80 03/08/22 16:00 Resp 16 03/08/22 16:00 BP 131/83 03/08/22 16:00 Pulse Ox 97 03/08/22 16:00 O2 Del Method 03/08/22 16:00 Discharge Plan Discharge Patient Disposition: Home Prescriptions: Continued (DME) Custom Foot Orthotics Bilaterally See Rx Instructions .Route .MEDSUPPLY Qty: 1 0RF Rx Instructions: As directed by Sanjuana (DME) Night splint See Rx Instructions .ROUTE .MEDSUPPLY Qty: 1 0RF Rx Instructions: As directed (DME) [place] J collar See Rx Instructions .Route .MEDSUPPLY Qty: 1 0RF Rx Instructions: As directed (DME) Bone Growth Stimulator See Rx Instructions .Route .MEDSUPPLY Qty: 1 0RF Rx Instructions: As directed ondansetron HCl 8 mg tablet 8 mg PO Q8H PRN (Reason: nausea and vomiting) Qty: 30 0RF acetaminophen 500 mg Tablet 1,000 mg PO BID PRN (Reason: Pain) Hold Instructions: Resume on 01/30/22. While Taking Hydrocodone lisinopril 20 mg Tablet 20 mg PO DAILY Qty: 30 0RF fluoxetine 10 mg Capsule 20 mg PO DAILY Qty: 60 0RF ferrous gluconate 324 mg (37.5 mg iron) Tablet 324 mg PO BIDWM Qty: 60 0RF lithium carbonate 600 mg Capsule 600 mg PO BID naproxen 500 mg Tablet 500 mg PO BID cephalexin 500 mg Capsule 500 mg PO QID Discharge Orders: Discharge Order (Routine); Ordered 03/08/22 Ordered By: Michel Monsivais Referrals: [facility] [Provider Group] - 04/11/22 Ondina Reich FNP [Primary Care Provider] - 03/13/22 10:00 am Discharge Diet: Advance as tolerated Discharge Activity: Limit activity as instructed Patient Instructions: Acute Wound Care (GEN), Negative Pressure Wound Therapy (GEN), Opioid Safety Activity Restrictions/Additional Instructions: Thank you for choosing [facility] for your care! The following is a list of instructions, from your provider, to follow upon your discharge to ensure you have the optimal recovery from your recent injury or surgery. : What to Expect at Home Your Recovery Follow-up care is a ribera part of your treatment and safety. Be sure to make and go to all appointments, and call your doctor if you are having problems. If you do not already have a follow-up appointment made, call office in the next 1-3 days to make follow up appointment for 1 weeks at [phone]. It is also a good idea to know your test results and keep a list of the medicines you take. You can expect your neck to feel stiff or sore after surgery. This should improve in the weeks after surgery. But it may take 4 to 6 months for you to get better completely. You may have trouble sitting or standing in one position for very long and may need pain medicine in the weeks after your surgery. It may take 4 to 6 weeks to get back to your usual activities, but it may depend on what kind of surgery you had. Your throat will feel sore and it may be difficult to swallow for the first 3 days after your surgery. As long as you can get liquids down without difficulty, this should slowly improve, otherwise call our office or seek medical attention if it becomes increasingly difficult to get anything down including liquids. Avoid hot liquids for first 3-5 days. Soothing foods/liquids such as jello, pudding, and luke warm soups are recommended until swallowing improves. Staying elevated will also help, it's advised you keep propped up at while sleeping to help reduce the swelling. You may use an ice pack directly on your incision or around it on the front of your neck, using a cloth to protect your skin; and a heating pad to the back of your neck as needed. Do not use over the counter anti-inflammatory medications (Ibuprofen, Motrin, Aleve, Advil, etc) Taking these meds after having a fusion can delay fusion rates, we recommend you avoid them for the first 3 months after your surgery[address] Dr. Maher may advise you to work with a physical therapist to strengthen the muscles around your neck and back - this will be discussed at your follow - up appointments. The pain or numbness you were having in your arms before surgery should get better or go away completely. This care sheet gives you a general idea about how long it will take for you to recover. But each person recovers at a different pace. Follow the steps below to get better as quickly as possible. How can you care for yourself at home? Activity ? Rest when you feel tired. Getting enough sleep will help you recover. ? Try to walk each day. Start by walking a little more than you did the day before. Bit by bit, increase the amount you walk. Walking boosts blood flow and helps prevent pneumonia and constipation. Walking may also decrease your muscle soreness after surgery. ? No lifting anything that is more that 5 pounds. This may include heavy grocery bags and milk containers, a heavy briefcase or backpack, cat litter or dog food bags, a child, or a vacuum marble cleaner. ? Avoid strenuous activities, such as bicycle riding, jogging, weightlifting, or aerobic exercise, until your doctor says it is okay. ? Do not drive until your follow-up visit after your surgery, or until your doctor says it isokay. ? Avoid taking long car trips for 2 to 4 weeks after surgery. Your neck may become tired and painful from sitting too long in one position. ? You will probably need to take 4 to 6 weeks off from work. It depends on the type of work you do and how you feel. ? You may have sex as soon as you feel able, but avoid positions that put stress on your neck or cause pain. Diet ? You can eat your normal diet. If your stomach is upset, try bland, low-fat foods like plain rice, broiled chicken, toast, and yogurt ? Drink plenty of fluids. If you have kidney, heart, or liver disease and have to limit fluids, talk with your doctor before you increase the amount of fluids you drink. ? You may notice that your bowel movements are not regular right after your surgery. This is common. Try to avoid constipation and straining with bowel movements. You may want to take a fiber supplement every day. If you have not had a bowel movement after a couple of days, ask your doctor about taking a mild laxative. Medicines ? Take pain medicines exactly as directed. 1. If Dr. Maher gave you a prescription medicine for pain, take lt as prescribed. 2. Do not take two or more pain medicines at the same time unless the doctor told you to. Many pain medicines have acetaminophen, which is Tylenol. Too much acetaminophen {Tylenol) can be harmful. 3. If you think your pain pill is making you sick to your stomach: 4. Take your pills after meals (unless your doctor has told you not to). 5. Ask your Dr. for a different pain pill. Incisioncare ? Remove your dressing 48 hours after your surgery. Ok to shower and get the incision wet. Do not overtly wash your incision. When done, pad dry, leave open to air thereafter. Avoid creams and ointments directly on your incision. ? Your sutures in the incision will dissolve and fall out on their own. ? Keep the area clean and dry. You may cover it with a gauze bandage if it weeps or rubs against clothing; if you choose to do this, change the dressing everyday. Other instructions ? Use a heating pad, hot water bottle, or gentle massage on your back to reduce stiffness. Avoid putting heat on your incision When should you call for help? ? Call 911 anytime you think you may need emergency care. For example, call if: ? You pass out (lose consciousness). ? You have sudden chest pain and shortness of breath, or you cough upblood. ? You cannot swallow. ? You have severe pain in your neck or back. ? Call your Dr. or seek immediate medical care if: ? You have pain that does not get better after you take pain pills. ? You have loose stitches, or your incision comes open. ? You have blood or fluid draining from the incision. ? You have signs of infection, such as: 1. Increased pain, swelling, warmth, or redness. 2. Red streaks leading from the site. 3. Pus draining from the site. 4. Swollen lymph nodes in your neck or armpits. 5. A fever. ? You have severe pain in your arms. ? You have new or increased weakness or numbness in your arms. ? Watch closely for any changes in your health, and be sure to contact your doctor if: ? You do not have a bowel movement after taking a laxative. Discharge Attestations Time Spent in Discharge Care*: less than 30 min Status at Discharge: Cognitive status at discharge: cognitively intact, Behavioral status at discharge: cooperative, Quality Metrics Clinical Quality Measures [ No reported AMI, CVA or VTE this stay] Coding Level of Care Code Acute g [facility] note Diagnoses Wound dehiscence, surgical T81.31XA Acute blood loss as cause of postoperative anemia D62
== END 2022-03-08 16:31 | disposition home or self-care (01) | DRG 857 ==
LOC: OR 12:32 → MEDSURG 12:47
PROVIDERS: Student in an Organized Health Care Education/Training Program; Admitting Provider Orthopaedic Surgery; PCP Nurse Practitioner; Visit Provider Orthopaedic Surgery
PROC: 0PD30ZZ Extraction of Cervical Vertebra, Open Approach (ICD-10-PCS; principal; 2022-03-04 11:20)
DX: T81.42XA Infection following a procedure, deep incisional surgical site, initial encounter (principal); D62 Acute posthemorrhagic anemia; T81.32XA Disruption of internal operation (surgical) wound, not elsewhere classified, initial encounter; M47.12 Other spondylosis with myelopathy, cervical region; Y83.8 Other surgical procedures as the cause of abnormal reaction of the patient, or of later complication, without mention of misadventure at the time of the procedure; I10 Essential (primary) hypertension; G47.33 Obstructive sleep apnea (adult) (pediatric); I25.10 Atherosclerotic heart disease of native coronary artery without angina pectoris; E78.5 Hyperlipidemia, unspecified; Z87.891 Personal history of nicotine dependence; Z98.1 Arthrodesis status
CPT/HCPCS: 36415; 36569; 71045; 80048; 80053; 80202; 85025; 85651; 86140; 87040; 87070; 87075; 87176; 87205; 97116; 97161; C1751; J0330; J1100; J2250; J2405; J2704; J3010; J3370; J3490; J7030; J7040; J7050

== ENCOUNTER → 2022-03-19 14:54 | Outpatient (BNVA) | payer OTHER, SELFPAY | PROVIDERS: PCP Nurse Practitioner; Visit Provider Orthopaedic Surgery | DX: T84.7XXA Infection and inflammatory reaction due to other internal orthopedic prosthetic devices, implants and grafts, initial encounter (principal); Z47.89 Encounter for other orthopedic aftercare | CPT/HCPCS: 99024 ==

== ENCOUNTER → 2022-03-26 14:33 | Outpatient (BNVA) | payer OTHER, SELFPAY | PROVIDERS: PCP Nurse Practitioner; Visit Provider Orthopaedic Surgery | DX: Z47.89 Encounter for other orthopedic aftercare (principal) | CPT/HCPCS: 99024 ==

== ENCOUNTER → 2022-04-09 12:43 | Outpatient (BNVA) | payer OTHER, SELFPAY | PROVIDERS: PCP Nurse Practitioner; Visit Provider Orthopaedic Surgery | DX: Z09 Encounter for follow-up examination after completed treatment for conditions other than malignant neoplasm (principal); T84.7XXA Infection and inflammatory reaction due to other internal orthopedic prosthetic devices, implants and grafts, initial encounter; Z98.1 Arthrodesis status; X58.XXXA Exposure to other specified factors, initial encounter; Z47.89 Encounter for other orthopedic aftercare | CPT/HCPCS: 36415; 80053; 85025; 85651; 86140; 87040; 99024; 99214 ==

== ENCOUNTER 2022-04-10 10:00 | Outpatient (CLI) | payer OTHER, SELFPAY ==
[2022-04-10 11:13] LABS: Thyroid Stimulating Hormone 0.23 uIU/mL (0.27-4.20)
[2022-04-10 13:20] LABS: Adenovirus Not Detected (NOT DETECT); Chlamydia Pneumoniae Not Detected (NOT DETECT); Coronavirus 229E,HKU1,NL63,OC4 Not Detected (NOT DETECT); Human Metapneumovirus Not Detected (NOT DETECT); Human Rhinovirus/Enterovirus Not Detected (NOT DETECT); Influenza A Not Detected (NOT DETECT); Influenza A H1 Not Detected (NOT DETECT); Influenza A H1-2009 Not Detected (NOT DETECT); Influenza A H3 Not Detected (NOT DETECT); Influenza B Not Detected (NOT DETECT); Mycoplasma Pneumoniae Not Detected (NOT DETECT); Parainfluenza Virus Type 1 Not Detected (NOT DETECT); Parainfluenza Virus Type 2 Not Detected (NOT DETECT); Parainfluenza Virus Type 3 Not Detected (NOT DETECT); Parainfluenza Virus Type 4 Not Detected (NOT DETECT); Respiratory Syncytial Virus A Not Detected (NOT DETECT); Respiratory Syncytial Virus B Not Detected (NOT DETECT); SARS-COV-2 Not Detected (NOT DETECT)
[2022-04-11 13:42] LABS: Lyme AB Screen <0.90 index
[2022-04-16 17:38] LABS: RMSF IGG NOT DETECTED; RMSF IGM NOT DETECTED
[2022-04-17 17:03] LABS: E. Chaffeensis AB IGG <1:64; E. Chaffeensis AB IGM <1:20
== END 2022-04-10 10:01 | disposition home or self-care (01) ==
PROVIDERS: PCP Nurse Practitioner; Visit Provider Student in an Organized Health Care Education/Training Program
DX: Z09 Encounter for follow-up examination after completed treatment for conditions other than malignant neoplasm (principal); T84.7XXA Infection and inflammatory reaction due to other internal orthopedic prosthetic devices, implants and grafts, initial encounter
CPT/HCPCS: 36415; 84443; 86618; 86666; 86757; 87486; 87581; 87633

== ENCOUNTER 2022-04-12 12:08 | Outpatient (CLI) | payer OTHER, SELFPAY ==
--- NOTE | 2022-04-12 12:00 | MR_ITS ---
WS: [id number] MRI CERVICAL SPINE NONCONTRAST AND CONTRAST TECHNIQUE: Sagittal T1, T2 and STIR imaging. Axial T2, gradient, and fiesta imaging. CLINICAL INFORMATION: follow up cervical spine abscess COMPARISON: MRI January 22, 2022 FINDINGS: Evacuation of the previously described dorsal postoperative abscess. No evidence of residua l or recurrent drainable fluid collection. Straightening of the normal cervical lordosis. Cord signal is normal. No high-grade central canal alli rowing. Prior postoperative changes ACDF C4-C6. Posterior element fusion with dorsal instrumentation extending from C2 through T2. No abnormal gadolinium enhancement. Expected postoperative changes in the dorsal subcutaneous soft ti ssues. Dorsal decompressive laminectomy defects. No recurrent central canal stenosis. Enhancement in the dorsal subcutaneous soft tissues consistent with normal postoperative change. No drainable fluid collection or seroma. C2-C3: Mild disc osteophytic ridging. Mild facet arthropathy. Mild RIGHT and no LEFT foraminal narrow ing. C3-C4: Laminectomy defects. Moderate LEFT bony foraminal narrowing. Mild RIGHT bony foraminal narrowi ng. Spinal canal is patent. C4-C5: Osteophytic ridging. Laminectomy defects. Mild LEFT and no significant RIGHT foraminal narrowi ng. C5-C6: Disc osteophytic ridging. Spinal canal is patent. Mild LEFT and no RIGHT bony foraminal narrow ing. C6-C7: Disc osteophytic ridging. Small disc osteophyte protrusion. Mild central canal stenosis with s light contact of the cervical cord. Moderate LEFT and mild RIGHT foraminal narrowing. C7-T1: Normal. T1-T2: Mild LEFT bony foraminal narrowing. RIGHT foramen is patent. Spinal canal is patent. T2-T3: Disc osteophytic ridging. Mild LEFT greater than RIGHT bony foraminal narrowing. Retention cysts partially visualized in the LEFT maxillary sinus. MR/MR cervical spine wo/w [id number] IMPRESSION: 1. Previously described dorsal postoperative abscess has been evacuated. No ev idence of recurrent or residual abscess. Postoperative inflammatory changes in the dorsal subcutaneous soft tissues. No drainable fluid collections. 2. No significant central canal stenosis. 3. Postoperative changes ACDF C4-C6 with posterior element fusion C2-T2 with d orsal rohini instrumentation. Decompressive laminectomy defects. 4. Mild central canal stenosis C6-C7 with moderate LEFT and no significant RIG HT foraminal narrowing.
[2022-04-12] MEDS: gadobenate dimeglumine 20 mL vial IV (13:21)
== END 2022-04-12 12:09 | disposition home or self-care (01) ==
LOC: RAD 12:09
PROVIDERS: PCP Nurse Practitioner; Visit Provider Student in an Organized Health Care Education/Training Program
DX: T84.7XXA Infection and inflammatory reaction due to other internal orthopedic prosthetic devices, implants and grafts, initial encounter (principal); Z98.1 Arthrodesis status; M48.02 Spinal stenosis, cervical region
CPT/HCPCS: 72156; A9577

== ENCOUNTER 2022-04-16 14:24 | Outpatient (CLI) | payer OTHER, SELFPAY ==
[2022-04-16 14:47] LABS: Add Urine Microscopic? NO
[2022-04-16 14:48] LABS: Charge for UA Resulting for Rev
[2022-04-16 14:52] LABS: Basophils % 0.9 %; Eosinophils # 0.1 10^3/uL (0.0-0.8); Eosinophils % 2.8 %; Hemoglobin 9.5 g/dL (11.7-16.6); Lymphocytes # 0.8 10^3/uL (0.8-4.8); Lymphocytes % 36.3 %; Mean Corpuscular HGB Conc 30.6 g/dL (30.0-36.0); Mean Corpuscular Hemoglobin 25.7 pg (28.0-34.0); Mean Platelet Volume 9.8 fL (7.4-10.4); Monocytes # 1.1 10^3/uL (0.2-0.9); Nucleated Red Blood Cells % 0 %; Platelet Count 237 10^3/cmm (130-400); Red Blood Count 3.69 10^6/uL (4.1-5.3); Red Cell Distribution Width 16.7 % (12.1-15.1); White Blood Count 2.2 10^3/uL (4.0-10.0)
[2022-04-16 14:54] LABS: Erythrocyte Sedimentation Rate 33 mm/hr (0-10)
[2022-04-16 14:55] LABS: Bilirubin Urine Neg (Negative); Blood Urine Neg (Negative); Glucose Urine UA Norm (Normal); Ketones Urine 1+ (Negative); Leukocyte Esterase Urine Negative (Negative); Nitrate Urine Negative (Negative); Protein Urine Neg (Negative); Urine Appearance Clear (CLEAR); Urine Color Yellow (Yellow); Urobilinogen Urine Neg (Negative); pH Urine 6.5 (5-7)
[2022-04-16 15:10] LABS: Alanine Aminotransferase 6 U/L (0-41); Albumin Level 3.8 g/dL (3.5-5.2); Alkaline Phosphatase 68 U/L (40-130); Anion Gap 15.8 (5-19); Aspartate Amino Transferase 9 U/L (0-40); Blood Urea Nitrogen 6 mg/dL (6-20); C Reactive Protein 123.1 mg/L (0.0-4.9); Calcium 9.4 mg/dL (8.5-10.5); Carbon Dioxide 25 mmol/L (22-29); Chloride 105 mmol/L (98-107); Globulin 3.1 g/dL (1.3-4.6); Glomerular Filtration Rate 117.5 mL/min (90-130); Glucose 101 mg/dL (65-115); Osmolality Calculated 292 mOsm/kg (285-295); Potassium 3.8 mmol/L (3.5-5.1); Sodium 142 mmol/L (136-145); Total Bilirubin 0.4 mg/dL (0.15-1.2); Total Protein 6.9 g/dL (6.6-8.7)
[2022-04-16 15:16] LABS: Slide Review Slide Review Perform
[2022-04-17 09:37] LABS: Neutrophils # 0.15 10^3/uL (1.8-7.7)
== END 2022-04-16 14:25 | disposition home or self-care (01) ==
PROVIDERS: PCP Nurse Practitioner; Visit Provider Student in an Organized Health Care Education/Training Program
DX: T84.7XXA Infection and inflammatory reaction due to other internal orthopedic prosthetic devices, implants and grafts, initial encounter (principal); R50.9 Fever, unspecified
CPT/HCPCS: 36415; 80053; 81003; 85025; 85651; 86140; 86141; 87086

== ENCOUNTER → 2022-04-18 13:57 | Outpatient (BNVA) | payer OTHER, SELFPAY | PROVIDERS: PCP Nurse Practitioner; Visit Provider Orthopaedic Surgery | DX: R13.10 Dysphagia, unspecified (principal); Z47.89 Encounter for other orthopedic aftercare | CPT/HCPCS: 99024 ==

== ENCOUNTER → 2022-04-23 13:30 | Outpatient (BNVA) | payer OTHER, SELFPAY | PROVIDERS: PCP Nurse Practitioner; Visit Provider Nurse Practitioner Family | DX: T81.31XD Disruption of external operation (surgical) wound, not elsewhere classified, subsequent encounter (principal); Y83.8 Other surgical procedures as the cause of abnormal reaction of the patient, or of later complication, without mention of misadventure at the time of the procedure; I96 Gangrene, not elsewhere classified; L98.422 Non-pressure chronic ulcer of back with fat layer exposed | CPT/HCPCS: 11042; 99213; A6021 ==

== ENCOUNTER → 2022-04-30 10:00 | Outpatient (BNVA) | payer OTHER, SELFPAY | PROVIDERS: PCP Nurse Practitioner; Visit Provider Nurse Practitioner Family | DX: I96 Gangrene, not elsewhere classified (principal); T81.31XD Disruption of external operation (surgical) wound, not elsewhere classified, subsequent encounter; Y83.8 Other surgical procedures as the cause of abnormal reaction of the patient, or of later complication, without mention of misadventure at the time of the procedure | CPT/HCPCS: 11042; A6021 ==

== ENCOUNTER 2022-05-07 11:30 | Outpatient (CLI) | payer OTHER, SELFPAY ==
[2022-05-07 12:03] LABS: Basophils # 0.1 10^3/uL (0.0-0.1); Basophils % 1.9 %; Eosinophils % 0.5 %; Hematocrit 32.5 % (42.0-52.0); Hemoglobin 9.9 g/dL (11.7-16.6); Lymphocytes # 1.2 10^3/uL (0.8-4.8); Mean Corpuscular HGB Conc 30.5 g/dL (30.0-36.0); Mean Corpuscular Hemoglobin 25.5 pg (28.0-34.0); Mean Corpuscular Volume 83.8 fl (80-94); Mean Platelet Volume 10.2 fL (7.4-10.4); Monocytes # 0.4 10^3/uL (0.2-0.9); Monocytes % 9.6 %; Neutrophils # 2.45 10^3/uL (1.8-7.7); Neutrophils % 58.8 %; Nucleated Red Blood Cells % 0 %; Platelet Count 233 10^3/cmm (130-400); Red Blood Count 3.88 10^6/uL (4.1-5.3); Red Cell Distribution Width 17.9 % (12.1-15.1); White Blood Count 4.2 10^3/uL (4.0-10.0)
[2022-05-07 12:23] LABS: Alanine Aminotransferase 8 U/L (0-41); Albumin Level 4.2 g/dL (3.5-5.2); Alkaline Phosphatase 58 U/L (40-130); Aspartate Amino Transferase 16 U/L (0-40); Blood Urea Nitrogen 12 mg/dL (6-20); Calcium 9.2 mg/dL (8.5-10.5); Carbon Dioxide 25 mmol/L (22-29); Chloride 105 mmol/L (98-107); Globulin 2.4 g/dL (1.3-4.6); Glomerular Filtration Rate 100.7 mL/min (90-130); Glucose 115 mg/dL (65-115); Osmolality Calculated 287 mOsm/kg (285-295); Sodium 138 mmol/L (136-145); Total Bilirubin 0.4 mg/dL (0.15-1.2); Total Protein 6.6 g/dL (6.6-8.7)
== END 2022-05-07 11:31 | disposition home or self-care (01) ==
LOC: LAB 11:33
PROVIDERS: PCP Nurse Practitioner; Visit Provider Student in an Organized Health Care Education/Training Program
DX: D70.9 Neutropenia, unspecified (principal); T81.31XD Disruption of external operation (surgical) wound, not elsewhere classified, subsequent encounter; Y83.8 Other surgical procedures as the cause of abnormal reaction of the patient, or of later complication, without mention of misadventure at the time of the procedure; L98.422 Non-pressure chronic ulcer of back with fat layer exposed
CPT/HCPCS: 11042; 80053; 85025; A6021

== ENCOUNTER → 2022-05-21 11:24 | Outpatient (BNVA) | payer OTHER, SELFPAY | PROVIDERS: PCP Nurse Practitioner; Visit Provider Thoracic Surgery (Cardiothoracic Vascular Surgery) | DX: T81.31XD Disruption of external operation (surgical) wound, not elsewhere classified, subsequent encounter (principal); Y83.8 Other surgical procedures as the cause of abnormal reaction of the patient, or of later complication, without mention of misadventure at the time of the procedure; I96 Gangrene, not elsewhere classified; L98.492 Non-pressure chronic ulcer of skin of other sites with fat layer exposed | CPT/HCPCS: 97597; A6021; A6213 ==

== ENCOUNTER → 2022-05-28 10:00 | Outpatient (BNVA) | payer OTHER, SELFPAY | PROVIDERS: PCP Nurse Practitioner; Visit Provider Thoracic Surgery (Cardiothoracic Vascular Surgery) | DX: T81.31XD Disruption of external operation (surgical) wound, not elsewhere classified, subsequent encounter (principal); Y83.8 Other surgical procedures as the cause of abnormal reaction of the patient, or of later complication, without mention of misadventure at the time of the procedure; L98.422 Non-pressure chronic ulcer of back with fat layer exposed | CPT/HCPCS: 97597; A6210 ==

== ENCOUNTER → 2022-06-04 13:52 | Outpatient (BNVA) | payer OTHER, SELFPAY | PROVIDERS: PCP Nurse Practitioner; Visit Provider Thoracic Surgery (Cardiothoracic Vascular Surgery) | DX: T81.31XD Disruption of external operation (surgical) wound, not elsewhere classified, subsequent encounter (principal); Y83.8 Other surgical procedures as the cause of abnormal reaction of the patient, or of later complication, without mention of misadventure at the time of the procedure; I96 Gangrene, not elsewhere classified | CPT/HCPCS: 99213; A6210; A6248 ==

== ENCOUNTER → 2022-06-06 13:51 | Outpatient (BNVA) | payer OTHER, SELFPAY | PROVIDERS: PCP Nurse Practitioner; Visit Provider Student in an Organized Health Care Education/Training Program | DX: T84.7XXA Infection and inflammatory reaction due to other internal orthopedic prosthetic devices, implants and grafts, initial encounter (principal); T81.31XA Disruption of external operation (surgical) wound, not elsewhere classified, initial encounter; Z98.1 Arthrodesis status; X58.XXXA Exposure to other specified factors, initial encounter | CPT/HCPCS: 99212; 99214 ==

== ENCOUNTER 2022-06-07 13:42 | Outpatient (CLI) | payer OTHER, SELFPAY ==
[2022-06-07 14:15] LABS: Basophils # 0.1 10^3/uL (0.0-0.1); Eosinophils # 0.1 10^3/uL (0.0-0.8); Eosinophils % 2.8 %; Hematocrit 36.3 % (42.0-52.0); Hemoglobin 11.3 g/dL (11.7-16.6); Lymphocytes # 1.4 10^3/uL (0.8-4.8); Lymphocytes % 28.7 %; Mean Corpuscular HGB Conc 31.1 g/dL (30.0-36.0); Mean Corpuscular Hemoglobin 26.2 pg (28.0-34.0); Mean Platelet Volume 9.8 fL (7.4-10.4); Monocytes # 0.4 10^3/uL (0.2-0.9); Monocytes % 8.3 %; Neutrophils # 2.91 10^3/uL (1.8-7.7); Neutrophils % 59.2 %; Nucleated Red Blood Cells % 0 %; Platelet Count 241 10^3/cmm (130-400); Red Blood Count 4.32 10^6/uL (4.1-5.3); Red Cell Distribution Width 18.2 % (12.1-15.1); White Blood Count 4.9 10^3/uL (4.0-10.0)
[2022-06-07 14:41] LABS: Alanine Aminotransferase 8 U/L (0-41); Albumin Level 4.4 g/dL (3.5-5.2); Alkaline Phosphatase 65 U/L (40-130); Anion Gap 11.3 (5-19); Aspartate Amino Transferase 11 U/L (0-40); Blood Urea Nitrogen 16 mg/dL (6-20); Calcium 9.2 mg/dL (8.5-10.5); Carbon Dioxide 27 mmol/L (22-29); Chloride 104 mmol/L (98-107); Globulin 2.3 g/dL (1.3-4.6); Glomerular Filtration Rate 100.7 mL/min (90-130); Glucose 91 mg/dL (65-115); Osmolality Calculated 287 mOsm/kg (285-295); Potassium 4.3 mmol/L (3.5-5.1); Sodium 138 mmol/L (136-145); Total Bilirubin 0.4 mg/dL (0.15-1.2); Total Protein 6.7 g/dL (6.6-8.7)
[2022-06-11 15:56] LABS: Erythrocyte Sedimentation Rate 11 mm/hr (0-10)
== END 2022-06-07 13:43 | disposition home or self-care (01) ==
LOC: LAB 13:46
PROVIDERS: PCP Nurse Practitioner; Visit Provider Student in an Organized Health Care Education/Training Program
DX: T84.7XXA Infection and inflammatory reaction due to other internal orthopedic prosthetic devices, implants and grafts, initial encounter (principal); X58.XXXA Exposure to other specified factors, initial encounter
CPT/HCPCS: 80053; 85025; 85651; 86140

== ENCOUNTER → 2022-06-14 14:08 | Outpatient (BNVA) | payer OTHER, SELFPAY | PROVIDERS: PCP Nurse Practitioner; Visit Provider Thoracic Surgery (Cardiothoracic Vascular Surgery) | DX: T81.31XD Disruption of external operation (surgical) wound, not elsewhere classified, subsequent encounter (principal); Y83.8 Other surgical procedures as the cause of abnormal reaction of the patient, or of later complication, without mention of misadventure at the time of the procedure | CPT/HCPCS: 97597; A6210; A6212 ==

== ENCOUNTER → 2022-07-08 12:10 | Outpatient (BNVA) | payer OTHER, SELFPAY | PROVIDERS: PCP Nurse Practitioner; Visit Provider Thoracic Surgery (Cardiothoracic Vascular Surgery) | DX: Z09 Encounter for follow-up examination after completed treatment for conditions other than malignant neoplasm (principal) | CPT/HCPCS: 99212 ==

== ENCOUNTER → 2022-07-18 14:52 | Outpatient (BNVA) | payer OTHER, SELFPAY | PROVIDERS: PCP Nurse Practitioner; Visit Provider Orthopaedic Surgery | DX: Z98.890 Other specified postprocedural states (principal); Z98.1 Arthrodesis status | CPT/HCPCS: 72040; 99213 ==